=== PATIENT | male | born 1960 | race Caucasian/White ===

== ENCOUNTER 2021-09-15 12:55 | Inpatient (IN) ==
[2021-09-15] MEDS ORDERED: SODIUM CHLORIDE 0.9% 500 ML IV STA (13:07)
[2021-09-15 13:47] LABS: Hematocrit (blood only) 41.4 % (42-52); Hemoglobin 14.3 g/dL (14.0-18.0); Mean Corpuscular Hemoglobin 30.4 pg (25-34); Mean Corpuscular Hgb Conc 34.5 g/dL (32-36); Mean Corpuscular Volume 87.9 fL (80-100); Mean Platelet Volume 9.6 fL (7.4-10.4); Platelet Count 271 K/uL (130-400); RDW Coefficient of Variation 13.2 % (11.5-14.5); RDW Standard Deviation 42.1 fL (36.4-46.3); Red Blood Count 4.71 M/uL (4.7-6.1); White Blood Count 8.47 K/uL (4.8-10.8)
[2021-09-15 14:04] LABS: BUN Creatinine Ratio 10.6 (10-20); Calcium 9.9 mg/dl (8.5-10.1); Creatinine Clr Calc Pharmacy 42.4 ml/min; Est GFR (African American) 30.7 ml/min; Est GFR (Non-African American) 26.5 ml/min; Potassium 3.5 mmol/L (3.5-5.1)
[2021-09-15 15:05] LABS: Appearance Urine Clear (Clear); Bacteria Urine Automated Negative (Negative); Bilirubin Urine Negative (Negative); Blood Urine Trace (Negative); Color Urine Yellow; Glucose Urine UA Negative (Negative); Ketones Urine Trace (Negative); Leukocyte Esterase Urine Negative (Negative); Nitrite Urine Negative (Negative); Protein Urine Negative (Negative); RBC Urine Automated 0-4 /hpf (0-4); Specific Gravity Urine 1.021 (1.000-1.030); Urobilinogen Urine Negative (Negative)
--- NOTE | 2021-09-15 16:33 | CT Scan Report ---
CT SCAN OF THE ABDOMEN AND PELVIS WITHOUT IV CONTRAST CLINICAL HISTORY: Bilateral flank pain. COMPARISON STUDY: Ultrasound of the abdominal aorta dated 11/29/2006. TECHNIQUE: CT scan of the abdomen and pelvis is performed from the lung bases to the proximal femora. Images are reviewed in the axial, sagittal, and coronal planes. IV contrast was not administered for this examination. A dose lowering technique was utilized adhering to the principles of ALARA. CT DOSE: 1235.66 mGy.cm FINDINGS: Lung bases: The heart is mildly enlarged and without pericardial effusion. The lung bases are clear. There is a small hiatal hernia. Liver: The unenhanced liver is mildly enlarged measuring 19.1 cm in length. The liver demonstrates di ffusely diminished attenuation consistent with hepatic steatosis. Nodularity of the surface contour s uggests early morphological changes of cirrhosis. There is no intrahepatic biliary ductal dilatation. Gallbladder: There are calcified gallstones with no CT evidence of acute cholecystitis. Spleen: Normal in size and attenuation. Pancreas: The unenhanced pancreas is mildly atrophic and grossly unremarkable. Adrenal glands: Unremarkable. Kidneys: The unenhanced kidneys are normal in size. There is a 6 mm obstructing calculus in the mid t o distal left ureter at the level of L5 seen on image #261. This causes mild to moderate left hydrour eteronephrosis. An additional punctate calculus is seen in the left ureter just above this stone. The re are at least 3 nonobstructing left renal calculi which measure up to 9 mm. There are at least 3 pu nctate nonobstructing calculi in the right kidney. There is no right ureteral stone or right-sided hy dronephrosis. There is no evidence of contour deforming renal mass lesion. Abdominal vasculature: There is advanced atherosclerotic calcification of the abdominal aorta. An inf rarenal abdominal aortic aneurysm measures 4.6 x 3.8 cm (AP times transverse). Bowel: There are scattered colonic diverticula with no CT evidence of acute diverticulitis. No bowel obstruction is identified. The appendix is well-visualized and normal. Peritoneum: There is no intraperitoneal free air or abdominal ascites. There is a fat-containing umbi lical hernia. Lymphadenopathy: None. Pelvic viscera: The prostate gland is enlarged and heterogeneous. The bladder is decompressed and alana ssly unremarkable. Skeletal structures: There is mild lumbosacral spondylosis. No lytic or blastic lesions are seen. IMPRESSION: 1. There is a 6 mm obstructing calculus in the mid to distal left ureter as above. This causes mild t o moderate left hydroureteronephrosis. 2. There is a second punctate calculus in the left ureter just above the obstructing stone. 3. Additional bilateral nonobstructing renal calculi as above. 4. There is a 4.6 x 3.8 cm infrarenal abdominal aortic aneurysm. Nonemergent vascular surgical follow -up is advised. 4. Prostatomegaly. 5. Cholelithiasis. 6. The liver is enlarged and steatotic with early morphologic changes of cirrhosis. 7. Additional findings as above. ACT 112: Negative or not required by law. Electronically signed by: Andrew Peace M.D. 09/15/2021 4:31 PM
--- NOTE | 2021-09-15 17:01 | Emergency Department Note ---
Impression & Plan Left ureteral calculus, DANITZA (acute kidney injury), Hydroureteronephrosis ED Provider Note CHIEF COMPLAINT: Left flank pain, notes kidney stone HISTORY OF PRESENTING ILLNESS: This is a 60-year-old male who presents to the emergency department by private vehicle with complaint of left-sided flank pain and a kidney stone. He states that he was seen at [facility] on 09/10 and was diagnosed with a left-sided kidney stone. He states that he was prescribed Flomax and has been taking Tylenol and Advil, but has continued to have persistent left flank pain and he feels like he has not passed the stone. He states that his pain has significantly improved and he currently ra meseret his pain 02/20. He did have some nausea and vomiting earlier, but he states that that has resolved. He denies any fevers or chills. He denies any difficulty urinating and has not had any dysuria or hematuria. He notes a history of kidney stones many years ago which required lithotripsy. He does not follow with a urologist currently. He denies any other symptoms besides the left flank pain. He denies any chest pain, shortness of breath, dizziness or syncope. He denies any known exposures to COVID-19 and notes that he is fully vaccinated. He last ate and drank at 11am today. REVIEW OF SYSTEMS: A complete 10 point review of systems was reviewed with the patient with pertinent positives and negatives as per history of present illness. All else were negative. PAST MEDICAL HISTORY: Hypertension, hyperlipidemia SOCIAL HISTORY: Lives at home, he denies tobacco use ALLERGIES: Reviewed in chart and with the patient PHYSICAL EXAM: CONSTITUTIONAL: Pleasant and cooperative. Nontoxic-appearing and in no acute distress. Well appearing and well nourished. HEENT: Normocephalic, atraumatic. NECK: Supple, full active range of motion without discomfort. RESPIRATORY: Clear to auscultation bilaterally with no wheezing, crackles, rhonchi or stridor. Equal expansion bilaterally. CARDIOVASCULAR: Regular rate and rhythm with no murmurs, rubs or gallops. Normal peripheral perfusion. No edema. GASTROINTESTINAL: Mildly tender to palpation in the left flank and mid abdomen. No rebound tenderness or guarding. Abdomen is soft and nondistended, obese abdomen. No palpable masses or HSM. Bowel sounds present in all quadrants. Mild left-sided CVA tenderness to percussion. No right-sided CVA tenderness. MUSCULOSKELETAL: Full range of motion of all joints without discomfort. INTEGUMENTARY: No rash or other significant dermatologic conditions noted. NEUROLOGIC: Alert and oriented X 4 with normal affect. Normal strength and sensation in all 4 extremities. Normal speech. Normal gait observed. ED COURSE AND MEDICAL DECISION MAKING: CC: Patient presenting with complaint of left flank pain and kidney stone DIFFERENTIAL DIAGNOSIS: Includes, but not limited to UTI, pyelonephritis, ureteral stone, infected stone, acute kidney injury, dehydration, electrolyte abnormality, among others. INTERPRETATION OF LABS: No leukocytosis, no anemia, normal platelets, no significant electrolyte abnormalities, elevated BUN and significantly elevated creatinine compared to baseline. UA shows trace blood and trace ketones with no bacteria or other signs of infection. SARS-CoV-2 RNA test negative. MEDICATION RECONCILIATION: I attest that I have personally reviewed the patient's current medication list. INITIAL VITAL SIGNS REVIEW: I reviewed the patient's initial vital signs and interpret them as follows: T: Afebrile; BP: Hypertensive; HR: Within normal limits; RR: Within normal limits; Pulse Ox: Within normal limits on room air. MDM SUMMARY: The patient was evaluated in room D7 and brought back from the waiting room due to high patient volumes. History and physical exam was performed. The patient does report that he had evaluation at [facility] for his symptoms and was diagnosed with a kidney stone on the left on 09/10. He feels that his symptoms have not improved. Patient is alert and oriented, in no acute distress, resting calmly on the stret olivia. Patient appears comfortable and complains of minimal pain at this time. He is mildly tender to palpation on the left flank and has mild left-sided CVA tenderness. No acute abdomen. Labs and CT imaging were already placed due to high patient volumes and long wait times, these were reviewed noting a 6 mm obstructing left-sided ureteral stone with moderate hydroureteronephrosis as well as an acute elevation in the patient's creatinine from his baseline concerning for acute kidney injury. I discussed with the patient that he would need to be admitted for his kidney injury and to have intervention for his kidney stone, he was agreeable to this plan. Order placed for COVID-19 testing per hospital policy. Patient discussed with Dr. Aragon, who agrees with my assessment, plan, and disposition. I spoke on the phone with Dr. Contreras, urology, who was in agreement with admitting the patient and will plan for a likely procedure tomorrow. I spoke on the phone with the [facility] hospitalist group, who agreed to evaluate the patient for admission. Patient reassessed multiple times throughout ED stay, he has remained hemodynamically stable and his pain has been well managed without intervention at this time. The patient was updated on all results and plan for admission, he was agreeable to this plan. The patient was stable at the time of admission. The chart was completed utilizing [employer] voice recognition software. Grammatical errors, random word insertions, pronoun errors, and incomplete sentences are an occasional consequence of this system due to software limitations, ambient noise, and hardware issues. Any formal questions or concerns about the content, text, or information contained within the body of this dictation should be directly addressed to the nurse practitioner for clarification. Past Med/Surg History Medical History (Updated 09/15/21 @ 22:15 by CHRISTOPHE Peterson) Diabetes mellitus, type II Dyslipidemia HTN (hypertension) Sleep apnea Surgical History (Updated 09/15/21 @ 20:31 by Syeda Servin PA-C) History of colonoscopy Family History (Updated 09/15/21 @ 20:31 by Syeda Servin PA-C) Other Cancer Hypertension Social History (Updated 09/15/21 @ 20:31 by Syeda Servin PA-C) Smoking Status: Never smoker Hx Alcohol Use: Yes Alcohol Intake Frequency: Monthly or Less Hx Substance Use: No Preferred Language: Lithuanian Feels Safe at Home: Yes Allergies Allergies Allergy/AdvReac Type Severity Reaction Status Date / Time AHSLEY Inhibitors Allergy Severe ANGIOEDEMA Verified 03/30/20 21:28 ARB-Angiotensin Receptor Allergy Severe ANGIOEDEMA Verified 03/30/20 21:28 Antagonist Home Meds Home Medications Medication Instructions Recorded Confirmed acetaminophen 500 mg tablet 1,000 mg PO Q6H PRN 03/30/20 09/15/21 (Tylenol Extra Strength) cholecalciferol (vitamin D3) 50 150 mcg PO DAILY 03/30/20 09/15/21 mcg (2,000 unit) capsule (Vitamin D3) coenzyme Q10 100 mg capsule 100 mg PO DAILY 03/30/20 09/15/21 (CoQ-10) hydrochlorothiazide 25 mg tablet 25 mg PO DAILY 03/30/20 09/15/21 metoprolol succinate 100 mg 200 mg PO DAILY 03/30/20 09/15/21 tablet,extended release 24 hr (Toprol XL) amlodipine 5 mg tablet 5 mg PO PM 09/15/21 09/15/21 atorvastatin 80 mg tablet 80 mg PO PM 09/15/21 09/15/21 metformin 500 mg tablet,extended 1,000 mg PO DAILY 09/15/21 09/15/21 release 24 hr Results & Data (ED) Vital Signs Vital Signs - 24 hr 09/15/21 12:56 Temperature 36.9 C Temperature Source Oral Pulse Rate 63 Pulse Rhythm Regular Pulse Strength Normal Respiratory Rate 20 Respiratory Effort / Characteristics Non-Labored Respiratory Depth Normal Respiratory Pattern Regular Blood Pressure 165/87 H Blood Pressure Mean 113 Blood Pressure Position Sitting Pulse Oximetry 96 Oxygen Delivery Method Room Air Sepsis Recent Fever Within 48 Hours No Sepsis New/Unexplained Change in Mental Status N/A Sepsis Action Taken by Nursing No Action Required Laboratory Data Result diagrams: 09/15/21 13:30 09/15/21 13:30 Lab Results 09/15/21 09/15/21 09/15/21 Range/Units 13:30 13:30 13:30 WBC 8.47 (4.8-10.8) K/uL RBC 4.71 (4.7-6.1) M/uL Hgb 14.3 (14.0-18.0) g/dL Hct 41.4 L (42-52) % MCV 87.9 (80-100) fL MCH 30.4 (25-34) pg MCHC 34.5 (32-36) g/dL RDW Std Deviation 42.1 (36.4-46.3) fL RDW Coeff of Marcio 13.2 (11.5-14.5) % Plt Count 271 (130-400) K/uL MPV 9.6 (7.4-10.4) fL Sodium 137 (136-145) mmol/L Potassium 3.5 (3.5-5.1) mmol/L Chloride 100 (98-107) mmol/L Carbon Dioxide 28 (21-32) mmol/L Anion Gap 9.0 (3-11) BUN 27 H (7-18) mg/dl Creatinine 2.53 H (0.6-1.4) mg/dl Est Cr Clr Drug Dosing 42.4 ml/min Est GFR ( Amer) 30.7 ml/min Est GFR (Non-Af Amer) 26.5 ml/min BUN/Creatinine Ratio 10.6 (10-20) Glucose 167 H (70-99) mg/dl Calcium 9.9 (8.5-10.1) mg/dl Urine Color Yellow Urine Appearance Clear (Clear) Urine pH 5.0 (4.5-7.5) Ur Specific [place] 1.021 (1.000-1.030) Urine Protein Negative (Negative) Urine Glucose (UA) Negative (Negative) Urine Ketones Trace H (Negative) Urine Blood Trace H (Negative) Urine Nitrite Negative (Negative) Urine Bilirubin Negative (Negative) Urine Urobilinogen Negative (Negative) Ur Leukocyte Esterase Negative (Negative) Urine WBC (Auto) 1-5 (0-5) /hpf Urine RBC (Auto) 0-4 (0-4) /hpf U Hyaline Cast (Auto) 1-5 (0-5) /lpf U Epithel Cells (Auto) 10-20 H (0-5) /lpf Urine Bacteria (Auto) Negative (Negative) SARS-CoV-2, RNA, NAAT (NEGATIVE) 09/15/21 Range/Units 18:29 WBC (4.8-10.8) K/uL RBC (4.7-6.1) M/uL Hgb (14.0-18.0) g/dL Hct (42-52) % MCV (80-100) fL MCH (25-34) pg MCHC (32-36) g/dL RDW Std Deviation (36.4-46.3) fL RDW Coeff of Marcio (11.5-14.5) % Plt Count (130-400) K/uL MPV (7.4-10.4) fL Sodium (136-145) mmol/L Potassium (3.5-5.1) mmol/L Chloride (98-107) mmol/L Carbon Dioxide (21-32) mmol/L Anion Gap (3-11) BUN (7-18) mg/dl Creatinine (0.6-1.4) mg/dl Est Cr Clr Drug Dosing ml/min Est GFR ( Amer) ml/min Est GFR (Non-Af Amer) ml/min BUN/Creatinine Ratio (10-20) Glucose (70-99) mg/dl Calcium (8.5-10.1) mg/dl Urine Color Urine Appearance (Clear) Urine pH (4.5-7.5) Ur Specific [place] (1.000-1.030) Urine Protein (Negative) Urine Glucose (UA) (Negative) Urine Ketones (Negative) Urine Blood (Negative) Urine Nitrite (Negative) Urine Bilirubin (Negative) Urine Urobilinogen (Negative) Ur Leukocyte Esterase (Negative) Urine WBC (Auto) (0-5) /hpf Urine RBC (Auto) (0-4) /hpf U Hyaline Cast (Auto) (0-5) /lpf U Epithel Cells (Auto) (0-5) /lpf Urine Bacteria (Auto) (Negative) SARS-CoV-2, RNA, NAAT NEGATIVE (NEGATIVE) Administered Medications Discontinued Medications Sodium Chloride (Nss) 500 mls @ 999 mls/hr IV .Q31M STA Stop: 09/15/21 13:37 Last Admin: 09/15/21 18:56 Dose: Not Given Documented by: [id number] Sodium Chloride (Nss 1000ml) 1,000 mls @ 999 mls/hr IV .Q1H1M ONE Stop: 09/15/21 19:35 Last Infusion: 09/15/21 19:57 Dose: 0 mls/hr Documented by: [id number] Admin: 09/15/21 18:56 Dose: 999 mls/hr Documented by: [id number] Imaging Data Radiologist's Impression: Abdomen/Pelvis CT 09/15/21 15:19 CT SCAN OF THE ABDOMEN AND PELVIS WITHOUT IV CONTRAST CLINICAL HISTORY: Bilateral flank pain. COMPARISON STUDY: Ultrasound of the abdominal aorta dated 11/29/2006. TECHNIQUE: CT scan of the abdomen and pelvis is performed from the lung bases to the proximal femora. Images are reviewed in the axial, sagittal, and coronal planes. IV contrast was not administered for this examination. A dose lowering technique was utilized adhering to the principles of ALARA. CT DOSE: 1235.66 mGy.cm FINDINGS: Lung bases: The heart is mildly enlarged and without pericardial effusion. The lung bases are clear. There is a small hiatal hernia. Liver: The unenhanced liver is mildly enlarged measuring 19.1 cm in length. The liver demonstrates diffusely diminished attenuation consistent with hepatic steatosis. Nodularity of the surface contour suggests early morphological changes of cirrhosis. There is no intrahepatic biliary ductal dilatation. Gallbladder: There are calcified gallstones with no CT evidence of acute cholecystitis. Spleen: Normal in size and attenuation. Pancreas: The unenhanced pancreas is mildly atrophic and grossly unremarkable. Adrenal glands: Unremarkable. Kidneys: The unenhanced kidneys are normal in size. There is a 6 mm obstructing calculus in the mid to distal left ureter at the level of L5 seen on image #261. This causes mild to moderate left hydroureteronephrosis. An additional punctate calculus is seen in the left ureter just above this stone. There are at least 3 nonobstructing left renal calculi which measure up to 9 mm. There are at least 3 punctate nonobstructing calculi in the right kidney. There is no right ureteral stone or right-sided hydronephrosis. There is no evidence of contour deforming renal mass lesion. Abdominal vasculature: There is advanced atherosclerotic calcification of the abdominal aorta. An infrarenal abdominal aortic aneurysm measures 4.6 x 3.8 cm (AP times transverse). Bowel: There are scattered colonic diverticula with no CT evidence of acute di verticulitis. No bowel obstruction is identified. The appendix is well- visualized and normal. Peritoneum: There is no intraperitoneal free air or abdominal ascites. There is a fat-containing umbilical hernia. Lymphadenopathy: None. Pelvic viscera: The prostate gland is enlarged and heterogeneous. The bladder is decompressed and grossly unremarkable. Skeletal structures: There is mild lumbosacral spondylosis. No lytic or blastic lesions are seen. IMPRESSION: 1. There is a 6 mm obstructing calculus in the mid to distal left ureter as above. This causes mild to moderate left hydroureteronephrosis. 2. There is a second punctate calculus in the left ureter just above the obstructing stone. 3. Additional bilateral nonobstructing renal calculi as above. 4. There is a 4.6 x 3.8 cm infrarenal abdominal aortic aneurysm. Nonemergent vascular surgical follow-up is advised. 4. Prostatomegaly. 5. Cholelithiasis. 6. The liver is enlarged and steatotic with early morphologic changes of cirrhosis. 7. Additional findings as above. ACT 112: Negative or not required by law. Electronically signed by: Andrew Peace M.D. 09/15/2021 4:31 PM Discharge Plan Visit Data Chief Complaint: Kidney Stone Stated Complaint: KIDNEY STONE ED Provider: Roel Aragon ED Midlevel Provider: Zahra Marino Discharge Problem: Left ureteral calculus, DANITZA (acute kidney injury), Hydroureteronephrosis Patient Disposition: Admitted As Inpatient Condition: Good Discharge Instructions Interventions: ED Discharge Assessment Last Done: 09/15/21 20:36
[2021-09-15] MEDS ORDERED: SODIUM CHLORIDE 0.9% 1000ML 1,000 ML IV ONE (18:35)
--- NOTE | 2021-09-15 19:21 | History & Physical Report ---
Date of Service September 15, 2021 Assessment & Plan (1) Ureteral calculus, left: Plan: Patient is 60-year-old male with PMH hypertension, dyslipidemia, DM II, sleep apnea presented to ER with complaint of kidney stone x1 week. Seen [facility] 09/09/21 diagnosed with 5 mm left ureter calculus. Denies fever/chills, dysuria, hematuria, urinary frequency or retention. In ER Patient afebrile, vital stable. No leukocytosis, BUN: 27, creatinine: 2.5. UA unremarkable CT abdomen and pelvis: 1. There is a 6 mm obstructing calculus in the mid to distal left ureter as above. This causes mild to moderate left hydroureteronephrosis. 2. There is a second punctate calculus in the left ureter just above the obstructing stone. 3. Additional bilateral nonobstructing renal calculi as above. 4. There is a 4.6 x 3.8 cm infrarenal abdominal aortic aneurysm. Nonemergent va scular surgical follow-up is advised. 4. Prostatomegaly. 5. Cholelithiasis. 6. The liver is enlarged and steatotic with early morphologic changes of cirrhosis. Strain urine IVF Oxycodone, Morphine prn pain Avoid NSAIDs NPO midnight Continue flomax Urology consult, possible procedure tomorrow Will need outpatient follow up on infrarenal abdominal aortic aneurysm CMP in am to assess liver functions (2) DANITZA (acute kidney injury): Plan: BUN: 27, Cr: 2.5. (was 1.8 on 09/09/21) Likely secondary to obstructing ureteral stone and NSAID use Monitor renal functions IVF Avoid NSAIDs and other nephrotoxic agents (3) HTN (hypertension): Plan: Continue amlodipine, metoprolol succinate Hole HCTZ with DANITZA (4) Dyslipidemia: Plan: Continue atorvastatin (5) Diabetes mellitus, type II: Plan: A1c: 6.1 on 05/29/21 Hold metformin Novolog sliding scale per protocol A1c in am (6) Sleep apnea: Plan: CPAP HS DVT Prophylaxis SCDs Full Code as per discussion with pt Follows with Dr Rivas for routine care Pt was seen and care coordinated with Dr Burciaga. See addendum History of Present Illness Chief Complaint: Kidney stone Primary Care Provider: Josue Burciaga MD Patient is 60-year-old male with PMH hypertension, dyslipidemia, DM II, sleep apnea presented to ER with complaint of kidney stone. Patient states last week had onset left flank pain and was seen at [facility] ER on 09/09/2021. There he was diagnosed with 5 mm left ureter calculus. At that time his creat inine was 1.8. He was discharged home. Patient states he has been alternating ibuprofen 800 mg every 4 hours as well as 1 g Tylenol every 4 hours. Patient states pain seemed to decrease however today with onset of left flank pain again. Patient reports is urinating without difficulty and denies any hematuria. Denies any fever or chills. Last week did have episode of vomiting at onset of flank pain however has not had any vomiting since ER visit in [place]. Patient reports history of needing lithotripsy for kidney stone years ago. Denies fever/chills, diaphoresis, diarrhea, constipation, ALMONTE, dizziness, syncope, vision changes, neck pain, CP, SOB, orthopnea, palpitations, cough, sore throat, choking, otalgia, rhinorrhea, paresthesias, weakness, extremity weakness, extremity edema, rashes, dysuria. In ER Patient afebrile, vital stable. No leukocytosis, BUN: 27, creatinine: 2.5. CT abdomen and pelvis shows 6 mm mid distal left ureter calculus Allergies Allergy/AdvReac Type Severity Reaction Status Date / Time ASHLEY Inhibitors Allergy Severe ANGIOEDEMA Verified 03/30/20 21:28 ARB-Angiotensin Receptor Allergy Severe ANGIOEDEMA Verified 03/30/20 21:28 Antagonist Home Medications Medication Instructions Recorded Confirmed Type acetaminophen 500 mg tablet 1,000 mg PO Q6H PRN 03/30/20 09/15/21 History (Tylenol Extra Strength) cholecalciferol (vitamin D3) 50 150 mcg PO DAILY 03/30/20 09/15/21 History mcg (2,000 unit) capsule (Vitamin D3) coenzyme Q10 100 mg capsule 100 mg PO DAILY 03/30/20 09/15/21 History (CoQ-10) hydrochlorothiazide 25 mg tablet 25 mg PO DAILY 03/30/20 09/15/21 History metoprolol succinate 100 mg 200 mg PO DAILY 03/30/20 09/15/21 History tablet,extended release 24 hr (Toprol XL) amlodipine 5 mg tablet 5 mg PO PM 09/15/21 09/15/21 History atorvastatin 80 mg tablet 80 mg PO PM 09/15/21 09/15/21 History metformin 500 mg tablet,extended 1,000 mg PO DAILY 09/15/21 09/15/21 History release 24 hr Past Med/Surg History Medical History (Updated 09/15/21 @ 22:15 by CHRISTOPHE Peterson) Diabetes mellitus, type II Dyslipidemia HTN (hypertension) Sleep apnea Surgical History (Updated 09/15/21 @ 20:31 by Syeda Servin PA-C) History of colonoscopy Family History (Updated 09/15/21 @ 20:31 by Syeda Servin PA-C) Other Cancer Hypertension Social History (Updated 09/15/21 @ 20:31 by Syeda Servin PA-C) Smoking Status: Never smoker Hx Alcohol Use: Yes Alcohol Intake Frequency: Monthly or Less Hx Substance Use: No Preferred Language: [place] Islander Communication Ability: Effective Card Writer Hand Required: No Beliefs That Will Affect Care: None Current Living Situation: Spouse Feels Safe at Home: Yes Review of Systems Review of Systems: All systems reviewed & are unremarkable except as noted in HPI & below Physical Exam Physical Exam: General: no acute distress, overweight Head: normocephalic, atraumatic Eyes: PERRL, EOM's intact, conjunctiva non-injected, anicteric ENT: normal inspection external ears, nose, mucous membranes moist Neck: supple, trachea midline Lungs: clear, no respiratory distress, no wheezing/rhonchi/rales CV: RRR, no pretibial edema Abd: normal BS, soft, Mild tenderness to left flank with palpation Ext: no cyanosis, no calf tenderness Neuro: A&O x 3, no focal deficits noted, normal affect Skin: warm, dry Results & Data Results & Data ([facility]) Vital Signs (Past 12 Hours) Vital Signs Temp Pulse Resp BP Pulse Ox 09/15/21 12:56 36.9 C 63 20 165/87 H 96 Laboratory Results Short CBC 09/15/21 Range/Units 13:30 WBC 8.47 (4.8-10.8) K/uL Hgb 14.3 (14.0-18.0) g/dL Hct 41.4 L (42-52) % Plt Count 271 (130-400) K/uL BMP 09/15/21 13:30 Sodium 137 Potassium 3.5 Chloride 100 Carbon Dioxide 28 BUN 27 H Creatinine 2.53 H Glucose 167 H Calcium 9.9 Urine 09/15/21 Range/Units 13:30 Urine Color Yellow Urine Appearance Clear (Clear) Urine pH 5.0 (4.5-7.5) Ur Specific [place] 1.021 (1.000-1.030) Urine Protein Negative (Negative) Urine Glucose (UA) Negative (Negative) Diagnostic Findings Abdomen/Pelvis CT 09/15/21 15:19 CT SCAN OF THE ABDOMEN AND PELVIS WITHOUT IV CONTRAST CLINICAL HISTORY: Bilateral flank pain. COMPARISON STUDY: Ultrasound of the abdominal aorta dated 11/29/2006. TECHNIQUE: CT scan of the abdomen and pelvis is performed from the lung bases to the proximal femora. Images are reviewed in the axial, sagittal, and coronal planes. IV contrast was not administered for this examination. A dose lowering technique was utilized adhering to the principles of ALARA. CT DOSE: 1235.66 mGy.cm FINDINGS: Lung bases: The heart is mildly enlarged and without pericardial effusion. The lung bases are clear. There is a small hiatal hernia. Liver: The unenhanced liver is mildly enlarged measuring 19.1 cm in length. The liver demonstrates diffusely diminished attenuation consistent with hepatic steatosis. Nodularity of the surface contour suggests early morphological changes of cirrhosis. There is no intrahepatic biliary ductal dilatation. Gallbladder: There are calcified gallstones with no CT evidence of acute cholecystitis. Spleen: Normal in size and attenuation. Pancreas: The unenhanced pancreas is mildly atrophic and grossly unremarkable. Adrenal glands: Unremarkable. Kidneys: The unenhanced kidneys are normal in size. There is a 6 mm obstructing calculus in the mid to distal left ureter at the level of L5 seen on image #261. This causes mild to moderate left hydroureteronephrosis. An additional punctate calculus is seen in the left ureter just above this stone. There are at least 3 nonobstructing left renal calculi which measure up to 9 mm. There are at least 3 punctate nonobstructing calculi in the right kidney. There is no right ureteral stone or right-sided hydronephrosis. There is no evidence of contour deforming renal mass lesion. Abdominal vasculature: There is advanced atherosclerotic calcification of the abdominal aorta. An infrarenal abdominal aortic aneurysm measures 4.6 x 3.8 cm (AP times transverse). Bowel: There are scattered colonic diverticula with no CT evidence of acute diverticulitis. No bowel obstruction is identified. The appendix is well- visualized and normal. Peritoneum: There is no intraperitoneal free air or abdominal ascites. There is a fat-containing umbilical hernia. Lymphadenopathy: None. Pelvic viscera: The prostate gland is enlarged and heterogeneous. The bladder is decompressed and grossly unremarkable. Skeletal structures: There is mild lumbosacral spondylosis. No lytic or blastic lesions are seen. IMPRESSION: 1. There is a 6 mm obstructing calculus in the mid to distal left ureter as above. This causes mild to moderate left hydroureteronephrosis. 2. There is a second punctate calculus in the left ureter just above the obstructing stone. 3. Additional bilateral nonobstructing renal calculi as above. 4. There is a 4.6 x 3.8 cm infrarenal abdominal aortic aneurysm. Nonemergent vascular surgical follow-up is advised. 4. Prostatomegaly. 5. Cholelithiasis. 6. The liver is enlarged and steatotic with early morphologic changes of cirrhosis. 7. Additional findings as above. ACT 112: Negative or not required by law. Electronically signed by: Andrew Peace M.D. 09/15/2021 4:31 PM Code Status & VTE Plan VTE Prophylaxis Plan VTE Prophylaxis will be ordered: Yes Supervising Physician Co-Signing Physician Notes Care coordinated with Syeda Servin PA-C. Agree with above note. Patient seen and examined. Please refer to her notes for full details. Vital signs reviewed. Physical exam: General exam: Alert and oriented. Not in acute distress. CVS: S1 and S2 heard, regular rate and rhythm, no murmurs. RS: Clear to auscultation, no wheezing or crackles. ABD: Soft, bowel sounds present, nontender, no distention. 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 EXT: No edema, no erythema. Labs: Reviewed. Assessment and plan: 60 M presents with renal colic. Recently was in [facility] and found to have right 5mm distal ureter ston. Was discharged but comes back as pain came back and he didnot passed the stone. Imaging studies showing obstructing 6mm right distal ureter stone. Right kidney stone renal colic iv fluids npo after midnight pain control urology consult in am. Danitza presented with Cr 2.5 recent cr 1.8 avoid nephrotoxic agents iv fluids follow labs in am. Abdominal aortic aneurysm infra renal needs followup. Other diagnosis and plan of care as per Syeda Servin PA-C. Rommel calle MD.
[2021-09-15] MEDS ORDERED: MoRPHine SULFATE 4 MG/ML 1 ML CARP\\VIAL IV PRN (19:22)
[2021-09-15] MEDS ORDERED: GLUCAGON FOR INJ 1 MG VIAL SQ PRN (22:11)
[2021-09-15] MEDS ORDERED: GLUCOSE 10 TABS/TUBE PO PRN (22:11)
[2021-09-15] MEDS ORDERED: GLUCOSE 40% GEL 15 GM TUBE PO PRN (22:11)
[2021-09-15] MEDS ORDERED: CARBOHYDRATES FOR HYPOGLYCEMIA PO PRN (22:11)
[2021-09-15] MEDS ORDERED: ONDANSETRON INJ 2 MG/ML 2 ML VIAL IV PRN (22:11)
[2021-09-15] MEDS ORDERED: oxyCODONE HCL IR 5 MG TAB (IMMEDIATE RELEASE) PO PRN (22:11)
[2021-09-15] MEDS ORDERED: DEXTROSE 50% 50 ML SYRINGE IV PRN (22:11)
[2021-09-15] MEDS ORDERED: POLYETHYLENE (MIRALAX) 17 GM PACK PO PRN (22:11)
[2021-09-15] MEDS ORDERED: MAGNESIUM HYDROXIDE SUSP 30 ML UDC PO PRN (22:11)
[2021-09-15] MEDS ORDERED: ACETAMINOPHEN 325 MG TAB PO PRN (22:11)
[2021-09-15] MEDS: SODIUM CHLORIDE 0.9% 1000ML 1,000 ML IV SCH (22:31)
[2021-09-15] MEDS ORDERED: ATORVASTATIN 40 MG TAB PO SCH (23:00)
[2021-09-15] MEDS ORDERED: amLODIPine BESYLATE 5 MG TAB PO SCH (23:00)
[2021-09-15] MEDS: INSULIN ASPART 100 UNITS/ML 3 ML PEN SC SCH (23:02)
--- NOTE | 2021-09-15 23:45 | Hospitalist Progress Note ---
Date of Service September 15, 2021 Assessment & Plan Admission and Anticipated Discharge Date Admission Date: September 15, 2021 Subjective Error : Documented as right renal colic whereas patient has left distal ureter stone and left renal colic. . Thank you Results & Data Results & Data ([facility]) Vital Signs (Past 12 Hours) Vital Signs Temp Pulse Pulse Resp BP BP Pulse Ox 09/15/21 20:30 69 21 95 09/15/21 20:00 77 20 171/92 H 96 09/15/21 19:30 66 15 99 09/15/21 19:14 71 20 97 09/15/21 19:00 60 16 167/84 H 98 09/15/21 12:56 36.9 C 63 20 165/87 H 96
[2021-09-16 06:04] LABS: Hematocrit (blood only) 39.8 % (42-52); Hemoglobin 13.4 g/dL (14.0-18.0); Mean Corpuscular Hemoglobin 29.8 pg (25-34); Mean Corpuscular Hgb Conc 33.7 g/dL (32-36); Mean Corpuscular Volume 88.6 fL (80-100); Mean Platelet Volume 9.4 fL (7.4-10.4); Platelet Count 251 K/uL (130-400); RDW Coefficient of Variation 13.2 % (11.5-14.5); RDW Standard Deviation 42.6 fL (36.4-46.3); Red Blood Count 4.49 M/uL (4.7-6.1); White Blood Count 9.87 K/uL (4.8-10.8)
[2021-09-16 06:33] LABS: Albumin Level 3.3 gm/dl (3.4-5.0); Calcium 9.1 mg/dl (8.5-10.1); Creatinine Clr Calc Pharmacy 48.5 ml/min; Est GFR (African American) 36.4 ml/min; Est GFR (Non-African American) 31.4 ml/min; Potassium 3.6 mmol/L (3.5-5.1)
[2021-09-16 06:36] LABS: Albumin Globulin Ratio 0.8 (0.9-2); Bilirubin,Total 0.9 mg/dl (0.2-1); Total Protein 7.3 gm/dl (6.4-8.2)
[2021-09-16 08:18] LABS: Estimated Average Glucose 151 mg/dl; Hemoglobin A1C 6.9 % (4.5-5.6)
[2021-09-16] MEDS: INSULIN ASPART 100 UNITS/ML 3 ML PEN SC SCH ×3 (08:30→18:42)
[2021-09-16] MEDS: SODIUM CHLORIDE 0.9% 1000ML 1,000 ML IV SCH (08:53)
[2021-09-16] MEDS ORDERED: METOPROLOL SUCC 50MG EXT REL TAB PO SCH (09:00)
[2021-09-16] MEDS ORDERED: TAMSULOSIN HCL 0.4 MG CAP PO SCH (09:00)
[2021-09-16] MEDS ORDERED: MIDAZOLAM HCL 1 MG/ML 2ML VIAL ONE (13:49)
[2021-09-16] MEDS ORDERED: fentaNYL citrate 100 MCG/2 ML VIAL ONE (13:49)
--- NOTE | 2021-09-16 13:58 | Anesthesiology Consultation ---
Date of Service September 16, 2021 Assessment & Plan Chart Review Chart Review: Acceptable Risk for Surgery and Patient NOT seen in Pre Admission Testing Consults Requested none ASA [id number] Proposed Anesthesia Anesthesia Type: General History Surgery Operation Date: 09/16/21 14:00 Proposed Procedures p Cystoscopy, Left Ureteroscopy, Left Ureteral Stent Insertion - Dom Contreras, Height/Weight Height: 6 ft 2 in Weight: 117 kg Allergies Allergy/AdvReac Type Severity Reaction Status Date / Time ASHLEY Inhibitors Allergy Severe ANGIOEDEMA Verified 03/30/20 21:28 ARB-Angiotensin Receptor Allergy Severe ANGIOEDEMA Verified 03/30/20 21:28 Antagonist Medications Home Medications Medication Instructions Recorded Confirmed Last Taken acetaminophen 500 mg tablet 1,000 mg PO Q6H PRN 03/30/20 09/15/21 Unknown (Tylenol Extra Strength) cholecalciferol (vitamin D3) 50 150 mcg PO DAILY 03/30/20 09/15/21 Unknown mcg (2,000 unit) capsule (Vitamin D3) coenzyme Q10 100 mg capsule 100 mg PO DAILY 03/30/20 09/15/21 Unknown (CoQ-10) hydrochlorothiazide 25 mg tablet 25 mg PO DAILY 03/30/20 09/15/21 09/15/21 metoprolol succinate 100 mg 200 mg PO DAILY 03/30/20 09/15/21 09/15/21 tablet,extended release 24 hr (Toprol XL) amlodipine 5 mg tablet 5 mg PO PM 09/15/21 09/15/21 09/14/21 atorvastatin 80 mg tablet 80 mg PO PM 09/15/21 09/15/21 09/14/21 metformin 500 mg tablet,extended 1,000 mg PO DAILY 09/15/21 09/15/21 09/15/21 release 24 hr Active Medications Generic Name Dose Route Start Last Admin Trade Name Freq PRN Reason Stop Dose Admin Acetaminophen 650 mg 09/15/21 22:11 09/16/21 09:58 Acetaminophen 325 Mg Tab PO 10/15/21 22:10 650 mg Q4H PRN Administration Pain or Fever Amlodipine Besylate 5 mg 09/15/21 23:00 09/15/21 23:09 Amlodipine Besylate 5 Mg Tab PO 10/15/21 22:59 5 mg PM ADILENE Administration Atorvastatin Calcium 80 mg 09/15/21 23:00 09/15/21 23:10 Atorvastatin 40 Mg Tab PO 10/15/21 22:59 80 mg PM ADILENE Administration Sodium Chloride 1,000 mls @ 100 mls/hr 09/15/21 22:11 09/16/21 08:53 Nss 1000ml IV 09/16/21 18:10 100 mls/hr .Q10H ADILENE Administration Insulin Aspart 0 units 09/15/21 23:00 09/16/21 12:15 Insulin Aspart 100 Units/Ml 3 Ml Pen SC 10/15/21 22:59 Not Given ACHS ADILENE Metoprolol Succinate 200 mg 09/16/21 09:00 09/16/21 07:45 Metoprolol Succ 50mg Ext Rel Tab PO 10/16/21 08:59 200 mg DAILY ADILENE Administration Morphine Sulfate 3 mg 09/15/21 19:22 09/15/21 22:28 Morphine Sulfate 4 Mg/Ml 1 Ml Carp\Vial IV 09/29/21 19:21 3 mg Q3H PRN Administration Severe Pain Ondansetron HCl 4 mg 09/15/21 22:11 09/15/21 22:36 Ondansetron Inj 2 Mg/Ml 2 Ml Vial IV 10/15/21 22:10 4 mg Q6H PRN Administration Nausea Oxycodone HCl 5 mg 09/15/21 22:11 09/16/21 05:42 Oxycodone Hcl Ir 5 Mg Tab (Immediate Release) PO 09/29/21 22:10 5 mg Q6H PRN Administration Moderate Pain Tamsulosin HCl 0.4 mg 09/16/21 09:00 09/16/21 07:44 Tamsulosin Hcl 0.4 Mg Cap PO 10/16/21 08:59 0.4 mg QAM ADILENE Administration NPO Date Last Intake of Fluids: 09/16/21 Time Last Intake of Fluids: 07:30 Last Intake of Fluids Comment: sips with meds Date Last Intake of Solids: 09/16/21 Time Last Intake of Solids: 00:00 Past Medical History Medical History Diabetes mellitus, type II Dyslipidemia HTN (hypertension) Sleep apnea Exercise / Class Metabolic Activity II 4-5 Yardwork/Stairs/Walk up hill Past Family History Family History Other Cancer Hypertension Past Surgical History Surgical History History of colonoscopy Past Anesthesia History No Hx of Anesthesia Complications and No Family Hx of Anesthesia Complications History of PONV No Hx of PONV and No Hx of Motion Sickness Social History Smoking Status: Never smoker Hx Alcohol Use: Yes alcohol intake frequency: holidays/special occasions only Hx Substance Use: No Physical Exam Vital Signs Last Vital Signs Temp 37.1 C 09/16/21 07:44 Pulse 68 09/16/21 07:44 Resp 18 09/16/21 07:44 BP 165/78 H 09/16/21 07:44 Pulse Ox 93 09/16/21 07:44 Testing Laboratory Results 09/16/21 05:44 09/16/21 05:44 Hemoglobin A1c 6.9 % (4.5-5.6) H 09/16/21 05:44 Urine Color Yellow 09/15/21 13:30 Urine Appearance Clear (Clear) 09/15/21 13:30 Urine pH 5.0 (4.5-7.5) 09/15/21 13:30 Ur Specific [place] 1.021 (1.000-1.030) 09/15/21 13:30 Urine Protein Negative (Negative) 09/15/21 13:30 Urine Glucose (UA) Negative (Negative) 09/15/21 13:30 Urine Ketones Trace (Negative) H 09/15/21 13:30 Urine Nitrite Negative (Negative) 09/15/21 13:30 Ur Leukocyte Esterase Negative (Negative) 09/15/21 13:30 Urine WBC (Auto) 1-5 /hpf (0-5) 09/15/21 13:30 Urine RBC (Auto) 0-4 /hpf (0-4) 09/15/21 13:30 U Hyaline Cast (Auto) 1-5 /lpf (0-5) 09/15/21 13:30 U Epithel Cells (Auto) 10-20 /lpf (0-5) H 09/15/21 13:30 Urine Bacteria (Auto) Negative (Negative) 09/15/21 13:30 09/16/21 09/16/21 12:09 07:51 POC Glucose 147 H 147 H Electrocardiogram Date: 03/30/20 Findings: + NSR @ (at 80;poss. infer. mi;age ?)
--- NOTE | 2021-09-16 14:12 | Urology Consultation ---
Date of Consultation September 16, 2021 Assessment & Plan (1) Left ureteral calculus: (2) DANITZA (acute kidney injury): Patient with history of stones with an obstructing stone causing considerable pain and DANITZA. Underwent hydration and supportive care and has only had a mild improvement of DANITZA. Continues to have significant pain and discomfort. Is very similar to previous stone episodes. No considerable family history of stone disease. Patient has never undergone work-up for stone disease. Has undergone a lithotripsy in the past and this was done within a submerged tank. Discussed options for conservative measure and maximum expulsion medical therapy and symptom controlled. Discussed ESWL. Discussed Ureteroscopy with extraction and/or laser lithotripsy. Risks and benefits were discussed. Stone free rates were also discussed as well as possibility of multiple procedures. Ureteral stents were discussed as well as post-operative issues and pain management. All questions were answered. Risks and benefits discussed at length for procedure. These include bleeding, infection, injury to surrounding tissues or organs, and risks associated with anesthesia. Patient states understanding and agrees to proceed. Will sign consent and procee d We will plan for cystoscopy with possible left ureteroscopy and stent History of Present Illness Attending Physician: Emily Hernandez, History of Present Illness New consultation for patient with stone, discomfort, obstruction, and ill feelings. Patient developed sudden onset of pain into flank going down and radiating into groin and back in waves comes and goes. Can be severe at times. Discussed and reviewed patient's family history for any history of stone disease. Also, discussed patient's medical surgery history especially related to any history of urinary issues or stone disease. Patient previously had stones 10 to 15 years ago at that time had to undergo ESWL. Has since been able to pass any stones. Has not had a stone in the last 8 or so years. No major family history. No considerable oxalate intake. Patient had a considerable DANITZA on presentation. Has only mildly improved with hydration Patient was admitted and is undergoing observation. Allergies Allergy/AdvReac Type Severity Reaction Status Date / Time ASHLEY Inhibitors Allergy Severe ANGIOEDEMA Verified 03/30/20 21:28 ARB-Angiotensin Receptor Allergy Severe ANGIOEDEMA Verified 03/30/20 21:28 Antagonist Home Medications Medication Instructions Recorded Confirmed Type acetaminophen 500 mg tablet 1,000 mg PO Q6H PRN 03/30/20 09/15/21 History (Tylenol Extra Strength) cholecalciferol (vitamin D3) 50 150 mcg PO DAILY 03/30/20 09/15/21 History mcg (2,000 unit) capsule (Vitamin D3) coenzyme Q10 100 mg capsule 100 mg PO DAILY 03/30/20 09/15/21 History (CoQ-10) hydrochlorothiazide 25 mg tablet 25 mg PO DAILY 03/30/20 09/15/21 History metoprolol succinate 100 mg 200 mg PO DAILY 03/30/20 09/15/21 History tablet,extended release 24 hr (Toprol XL) amlodipine 5 mg tablet 5 mg PO PM 09/15/21 09/15/21 History atorvastatin 80 mg tablet 80 mg PO PM 09/15/21 09/15/21 History metformin 500 mg tablet,extended 1,000 mg PO DAILY 09/15/21 09/15/21 History release 24 hr Patient History Medical History Diabetes mellitus, type II Dyslipidemia HTN (hypertension) Sleep apnea Surgical History History of colonoscopy Family History Other Cancer Hypertension Social History Smoking Status: Never smoker Hx Alcohol Use: Yes Alcohol Intake Frequency: Monthly or Less Hx Substance Use: No Preferred Language: [place] Communication Ability: Effective Director Medicaid Required: No Beliefs That Will Affect Care: None Current Living Situation: Spouse Feels Safe at Home: Yes Review of Systems Review of Systems: All systems reviewed & are unremarkable except as noted in HPI & below Physical Exam Physical Exam: General: Alert and oriented x 3 in no acute distress. Patient is well nourished and well kept. HEENT: Normocephalic Atraumatic. Inspection normal. Cranial Nerves 2-12 Grossly intact. Nares are clear. Neck is supple. Normal inspection of face. Normal inspection of neck. Neurologic: No deficits on inspection. Baseline for motor function and sensory. Psychologic: Normal affect. Respiratory: Nonlabored. No use of accessory muscles. No tachypnea or dyspnea. Cardiovascular: No tachycardia Skin: [place] and Dry. No rashes or visible lesions. Extremities: Moving without issues. No motor deficits on inspection Lymphatics: No edema Abdomen: Soft Non-distended. No acites. No rebound or guarding. Results & Data ([facility]) Vital Signs (Past 12 Hours) Vital Signs Temp Pulse Resp BP Pulse Ox 09/16/21 07:44 37.1 C 68 18 165/78 H 93 PG Care Time/CCT Total # of Minutes Spent Total Time Spent with Patient: Total time spent is greater than 50% in coordination of care (as documented) at patient's floor/unit and/or counseling patient: Coding Level of Care Code 38928 Inpt Consult Level 5 Diagnoses Left ureteral calculus N20.1 DANITZA (acute kidney injury) N17.9
[2021-09-16] MEDS ORDERED: fentaNYL citrate 100 MCG/2 ML VIAL IV PRN (14:33)
[2021-09-16] MEDS ORDERED: NALOXONE HCL 0.4 MG/1 ML VIAL/CARP IV PRN (14:33)
[2021-09-16] MEDS ORDERED: ONDANSETRON INJ 2 MG/ML 2 ML VIAL IV PRN (14:33)
[2021-09-16] MEDS ORDERED: PROMETHAZINE HCL 12.5 MG in SODIUM CHLORIDE 0.9% 50 ML IV PRN (14:33)
[2021-09-16] MEDS ORDERED: LABETALOL HCL IV 5 MG/ML 20ML IV PRN (14:33)
[2021-09-16] MEDS ORDERED: ePHEDrine sulfate 50 MG/ML AMP IV PRN (14:33)
[2021-09-16] MEDS ORDERED: ATROPINE SULFATE 0.1 MG/ML 10ML SYR IV PRN (14:33)
[2021-09-16] MEDS ORDERED: FLUMAZENIL 0.1 MG/1 ML 10 ML VIAL IV PRN (14:33)
--- NOTE | 2021-09-16 15:08 | Operative Report ---
PG Post Operative Report Pre & Post Diagnosis Operation Date: 09/16/21 14:00 Pre-Op Diagnosis: KIDNEY STONE, DANITZA Post-Op Diagnosis: KIDNEY STONE, DANITZA I identified the patient and participated in the time-out.: Yes Procedure Operation Date: 09/16/21 14:00 Actual Procedures p Cystoscopy and Left Ureteroscopy, Left Ureteral Stent Insertion(Left) - Dom Contreras DO Surgeon Dom Contreras, II, DO Aircraft Engine Technician None Estimated Blood Loss 1 Findings Consistent with Post-Op Diagnosis Distal stricture and UO narrowing. Stone impacted at mid ureter. Dark urine with debris entrapped behind stone Specimens Urine for culture. Drains 6 Fr Multilength Anesthesia Type General Complications none Disposition Disposition: Recovery Room Indications Patient with bothersome stones and DANITZA. Risks and benefits discussed at length. Description of Procedure Patient was consented and brought back to the operating room. Patient was placed under anesthesia in the supine position and moved to the dorsal lithotomy position. Patient was prepped and draped in the regular sterile fashion. A time out was completed. A 30degree Cystoscope was placed into the bladder and the entire bladder was examined. The UO's were identified. The UO was cannulized with a catheter and a retrograde pyelogram was completed. A wire was then placed. The Rigid ureteroscope was taken into the ureter. Two strictures were dilated. The stone was identified and severely impacted in the wall. With manipulation, a large amount of debris was appreciated. Due to possible infection and the strictures, it was elected to avoid manipulation and allow decompression with stent. The scope was slowly removed with the wire left in place. A 5 fr catheter was used to aspirate urine from the renal pelvis. This was sent for analysis. Contrast was placed through the scope for a pyelogram to assist in stent placement. The entire ureter was examined as the scope was slowly removed. No obstructions or other areas of concern were noted. With the wire in place, a 6 Fr Double J stent was placed. It was confirmed with fluoroscopy. With the stent in place, the bladder was emptied. The scope was removed. The patient was cleaned, aroused from anesthesia, and transferred to the pacu in stable condition having tolerated the procedure well with no complications. I was present and participated in all aspects of the procedure. The patient will be monitored in the PACU until transferred. Plan to maintain stent and monitor DANITZA. Can plan on treatment of Ureteral and Renal stones in 1-3 weeks. I attest to the content of the Intraoperative Record and any orders documented therein. Any exceptions are noted below.
--- NOTE | 2021-09-16 15:14 | Fluoroscopy Report ---
FL retrograde includes kub CLINICAL HISTORY: LEFT SIDED STENT COMPARISON STUDY: Abdomen and pelvis CT 09/15/2021. FLUOROSCOPY TIME: 34 seconds. FINDINGS: 4 fluoroscopic spot images of the abdomen and pelvis demonstrate retrograde opacification o f the left renal collecting system followed by placement of a left ureteral stent. The ureteral stent appears in good position. IMPRESSION: Fluoroscopic assistance provided for left ureteral stent placement. ACT 112: Negative or not required by law. Electronically signed by: Naren Metcalf M.D. 09/16/2021 3:12 PM
--- NOTE | 2021-09-16 15:53 | Anesthesiology Progress Note ---
Date of Service September 16, 2021 Anesthesia Post Procedure Vital Signs Vital Signs: Temp Pulse Pulse Resp BP BP Pulse Ox 09/16/21 15:45 64 16 155/81 H 95 09/16/21 15:35 36.8 C 62 16 160/87 H 97 09/16/21 15:25 68 17 149/78 H 97 09/16/21 15:15 64 16 154/86 H 99 09/16/21 15:09 36.7 C 66 16 132/67 96 09/16/21 07:44 37.1 C 68 18 165/78 H 93 09/16/21 00:15 69 19 94 09/15/21 20:30 69 21 95 09/15/21 20:00 77 20 171/92 H 96 09/15/21 19:30 66 15 99 09/15/21 19:14 71 20 97 09/15/21 19:00 60 16 167/84 H 98 Pain Intensity Left Flank: Pain Intensity: 4 Transfer of Care Handoff Completed per policy Notes Mental Status: alert / awake / arousable Patient Amnestic to Procedure: Yes Nausea / Vomiting: adequately controlled Pain: adequately controlled Airway Patency, RR, SpO2: stable & adequate BP & HR: stable & adequate Hydration State: stable & adequate Anesthetic Complications: no major complications apparent
--- NOTE | 2021-09-16 19:06 | Hospitalist Progress Note ---
Date of Service September 16, 2021 Assessment & Plan (1) Ureteral calculus, left: Plan: Patient is 60-year-old male with PMH hypertension, dyslipidemia, DM II, sleep apnea presented to ER with complaint of kidney stone x1 week. Seen [facility] 09/09/21 diagnosed with 5 mm left ureter calculus. Denies fever/chills, dysuria, hematuria, urinary frequency or retention. In ER Patient afebrile, vital stable. No leukocytosis, BUN: 27, creatinine: 2.5. UA unremarkable CT abdomen and pelvis: 1. There is a 6 mm obstructing calculus in the mid to distal left ureter as above. This causes mild to moderate left hydroureteronephrosis. 2. There is a second punctate calculus in the left ureter just above the obstructing stone. 3. Additional bilateral nonobstructing renal calculi as above. 4. There is a 4.6 x 3.8 cm infrarenal abdominal aortic aneurysm. Nonemergent va scular surgical follow-up is advised. 4. Prostatomegaly. 5. Cholelithiasis. 6. The liver is enlarged and steatotic with early morphologic changes of cirrhosis. Strain urine IVF Oxycodone, Morphine prn pain Avoid NSAIDs NPO midnight Continue flomax Urology consult, possible procedure tomorrow Will need outpatient follow up on infrarenal abdominal aortic aneurysm CMP in am to assess liver functions (2) DANITZA (acute kidney injury): Plan: BUN: 27, Cr: 2.5. (was 1.8 on 09/09/21) Likely secondary to obstructing ureteral stone and NSAID use Monitor renal functions IVF Avoid NSAIDs and other nephrotoxic agents (3) HTN (hypertension): Plan: Continue amlodipine, metoprolol succinate Hole HCTZ with DANITZA (4) Dyslipidemia: Plan: Continue atorvastatin (5) Diabetes mellitus, type II: Plan: A1c: 6.1 on 05/29/21 Hold metformin Novolog sliding scale per protocol A1c in am (6) Sleep apnea: Plan: CPAP HS DVT Prophylaxis SCDs Full Code as per discussion with pt Follows with Dr Rivas for routine care Pt was seen and care coordinated with Dr Burciaga. See addendum Admission and Anticipated Discharge Date Admission Date: September 15, 2021 Results & Data Results & Data ([facility]) Vital Signs (Past 12 Hours) Vital Signs Temp Pulse Pulse Resp BP BP Pulse Ox 09/16/21 18:55 37.0 C 66 17 149/72 H 93 09/16/21 18:12 36.9 C 69 18 172/70 H 94 09/16/21 16:53 169/82 H 09/16/21 16:30 36.6 C 62 18 167/86 H 94 09/16/21 15:55 37.0 C 63 16 166/80 H 96 09/16/21 15:45 64 16 155/81 H 95 09/16/21 15:35 36.8 C 62 16 160/87 H 97 09/16/21 15:25 68 17 149/78 H 97 09/16/21 15:15 64 16 154/86 H 99 09/16/21 15:09 36.7 C 66 16 132/67 96 09/16/21 07:44 37.1 C 68 18 165/78 H 93 Laboratory Results Short CBC 09/16/21 Range/Units 05:44 WBC 9.87 (4.8-10.8) K/uL Hgb 13.4 L (14.0-18.0) g/dL Hct 39.8 L (42-52) % Plt Count 251 (130-400) K/uL BMP 09/16/21 05:44 Sodium 138 Potassium 3.6 Chloride 103 Carbon Dioxide 28 BUN 26 H Creatinine 2.20 H D Glucose 135 H Calcium 9.1 Liver Function 09/16/21 Range/Units 05:44 Total Bilirubin 0.9 (0.2-1) mg/dl AST 15 (15-37) U/L ALT 25 (12-78) Alkaline Phosphatase 89 (45-117) U/L Albumin 3.3 L (3.4-5.0) gm/dl Diagnostic Findings Retrograde Pyelogram 09/16/21 00:00 FL retrograde includes kub CLINICAL HISTORY: LEFT SIDED STENT COMPARISON STUDY: Abdomen and pelvis CT 09/15/2021. FLUOROSCOPY TIME: 34 seconds. FINDINGS: 4 fluoroscopic spot images of the abdomen and pelvis demonstrate retrograde opacification of the left renal collecting system followed by placement of a left ureteral stent. The ureteral stent appears in good position. IMPRESSION: Fluoroscopic assistance provided for left ureteral stent placement. ACT 112: Negative or not required by law. Electronically signed by: Naren Metcalf M.D. 09/16/2021 3:12 PM Medications Administered Current Inpatient Medications Acetaminophen (Acetaminophen 325 Mg Tab) 650 mg PO Q4H PRN PRN Reason: Pain or Fever Stop: 10/15/21 22:10 Last Admin: 09/16/21 09:58 Dose: 650 mg Documented by: Amlodipine Besylate (Amlodipine Besylate 5 Mg Tab) 5 mg PO PM ADILENE Stop: 10/15/21 22:59 Last Admin: 09/15/21 23:09 Dose: 5 mg Documented by: Atorvastatin Calcium (Atorvastatin 40 Mg Tab) 80 mg PO PM ADILENE Stop: 10/15/21 22:59 Last Admin: 09/15/21 23:10 Dose: 80 mg Documented by: Atropine Sulfate (Atropine Sulfate 0.1 Mg/Ml 10ml Syr) 0.5 mg IV Q1M PRN PRN Reason: PACU Use-HR<40 &/or Bradycardi Stop: 09/16/21 22:33 Dextrose (Dextrose 50% 50 Ml Syringe) 25 - 50 ml IV UD PRN; Protocol PRN Reason: Hypoglycemia Protocol Stop: 10/15/21 22:10 Ephedrine Sulfate (Ephedrine Sulfate 50 Mg/Ml Amp) 5 mg IV Q5M PRN PRN Reason: PACU Use Only-SBP<90 mmHg Stop: 09/16/21 22:33 Fentanyl Citrate (Fentanyl Citrate 100 Mcg/2 Ml Vial) 25 mcg IV Q5M PRN PRN Reason: PACU Use Only-Pain Stop: 09/16/21 22:33 Flumazenil (Flumazenil 0.1 Mg/1 Ml 10 Ml Vial) 0.2 mg IV Q2M PRN PRN Reason: PACU Use Only-Benzo Reversal Stop: 09/16/21 22:33 Glucagon (Glucagon For Inj 1 Mg Vial) 1 mg SQ UD PRN; Protocol PRN Reason: Hypoglycemia Protocol Stop: 10/15/21 22:10 Glucose (Glucose 10 Tabs/Tube) 4 - 8 tabs PO UD PRN; Protocol PRN Reason: Hypoglycemia Protocol Stop: 10/15/21 22:10 Glucose (Glucose 40% Gel 15 Gm Tube) 15 - 30 gm PO UD PRN; Protocol PRN Reason: Hypoglycemia Protocol Stop: 10/15/21 22:10 Promethazine HCl 12.5 mg/ (Sodium Chloride) 50.5 mls @ 204 mls/hr IV ONCE PRN PRN Reason: PACU Use Only-Nausea/Vomiting Stop: 09/16/21 22:33 Insulin Aspart (Insulin Aspart 100 Units/Ml 3 Ml Pen) 0 units SC ACHS ADILENE Stop: 10/15/21 22:59 Last Admin: 09/16/21 18:42 Dose: Not Given Documented by: Labetalol HCl (Labetalol Hcl Iv 5 Mg/Ml 20ml) 5 mg IV Q5M PRN PRN Reason: PACU Use-SBP>160 or DBP>100 Stop: 09/16/21 22:34 Magnesium Hydroxide (Magnesium Hydroxide Susp 30 Ml Udc) 30 ml PO Q12H PRN PRN Reason: Constipation Stop: 10/15/21 22:10 Metoprolol Succinate (Metoprolol Succ 50mg Ext Rel Tab) 200 mg PO DAILY [facility] Stop: 10/16/21 08:59 Last Admin: 09/16/21 07:45 Dose: 200 mg Documented by: Miscellaneous (Carbohydrates For Hypoglycemia ) 15 - 30 gm PO UD PRN PRN Reason: Hypoglycemia Protocol Stop: 10/15/21 22:10 Morphine Sulfate (Morphine Sulfate 4 Mg/Ml 1 Ml Carp\Vial) 3 mg IV Q3H PRN PRN Reason: Severe Pain Stop: 09/29/21 19:21 Last Admin: 09/15/21 22:28 Dose: 3 mg Documented by: Naloxone HCl (Naloxone Hcl 0.4 Mg/1 Ml Vial/Carp) 0.2 mg IV Q2M PRN PRN Reason: PACU Use Only-Opiate Reversal Stop: 09/16/21 22:33 Ondansetron HCl (Ondansetron Inj 2 Mg/Ml 2 Ml Vial) 4 mg IV Q6H PRN PRN Reason: Nausea Stop: 10/15/21 22:10 Last Admin: 09/15/21 22:36 Dose: 4 mg Documented by: Ondansetron HCl (Ondansetron Inj 2 Mg/Ml 2 Ml Vial) 4 mg IV ONCE PRN PRN Reason: PACU Use Only-Nausea/Vomiting Stop: 09/16/21 22:33 Oxycodone HCl (Oxycodone Hcl Ir 5 Mg Tab (Immediate Release)) 5 mg PO Q6H PRN PRN Reason: Moderate Pain Stop: 09/29/21 22:10 Last Admin: 09/16/21 05:42 Dose: 5 mg Documented by: Polyethylene Glycol (Polyethylene (Miralax) 17 Gm Pack) 17 gm PO DAILY PRN PRN Reason: Constipation Stop: 10/15/21 22:10 Tamsulosin HCl (Tamsulosin Hcl 0.4 Mg Cap) 0.4 mg PO [facility] Stop: 10/16/21 08:59 Last Admin: 09/16/21 07:44 Dose: 0.4 mg Documented by:
--- NOTE | 2021-09-16 19:44 | Discharge Summary ---
Date of Service September 16, 2021 Admission HPI Per Admitting Provider Patient is 60-year-old male with PMH hypertension, dyslipidemia, DM II, sleep apnea presented to ER with complaint of kidney stone. Patient states last week had onset left flank pain and was seen at [facility] ER on 09/09/2021. There he was diagnosed with 5 mm left ureter calculus. At that time his creatinine was 1.8. He was discharged home. Patient states he has been alternating ibuprofen 800 mg every 4 hours as well as 1 g Tylenol every 4 hours. Patient states pain seemed to decrease however today with onset of left flank pain again. Patient reports is urinating without difficulty and denies any hematuria. Denies any fever or chills. Last week did have episode of vomiting at onset of flank pain however has not had any vomiting since ER visit in [place]. Patient reports history of needing lithotripsy for kidney stone years ago. Denies fever/chills, diaphoresis, diarrhea, constipation, ALMONTE, dizziness, syncope, vision changes, neck pain, CP, SOB, orthopnea, palpitations, cough, sore throat, choking, otalgia, rhinorrhea, paresthesias, weakness, extremity weakness, extremity edema, rashes, dysuria. In ER Patient afebrile, vital stable. No leukocytosis, BUN: 27, creatinine: 2.5. CT abdomen and pelvis shows 6 mm mid distal left ureter calculus Discharge Data Allergies Allergy/AdvReac Type Severity Reaction Status Date / Time ASHLEY Inhibitors Allergy Severe ANGIOEDEMA Verified 03/30/20 21:28 ARB-Angiotensin Receptor Allergy Severe ANGIOEDEMA Verified 03/30/20 21:28 Antagonist Consultations 09/15/21 18:35 ED Decision to Admit Stat 09/15/21 22:11 Consult Urology Routine Procedures Performed Operation Date: 09/16/21 14:00 Actual Procedures p Left Ureteroscopy, Ureteral Dilitation, Retrograde Pyelogram,Stent, Aspiration(Left) - Dom Contreras, Ordered Studies 09/15/21 15:19 CT abd pelvis wo con Stat 09/16/21 FL retrograde includes kub Routine Hospital Course (1) Ureteral calculus, left: Patient is 60-year-old male with PMH hypertension, dyslipidemia, DM II, sleep apnea presented to ER with complaint of kidney stone x1 week. Seen [facility] 09/09/21 diagnosed with 5 mm left ureter calculus. Denies fever/chills, dysuria, hematuria, urinary frequency or retention. In ER Patient afebrile, vital stable. No leukocytosis, BUN: 27, creatinine: 2.5. UA unremarkable CT abdomen and pelvis: 1. There is a 6 mm obstructing calculus in the mid to distal left ureter as a shaw. This causes mild to moderate left hydroureteronephrosis. 2. There is a second punctate calculus in the left ureter just above the obstructing stone. 3. Additional bilateral nonobstructing renal calculi as above. 4. There is a 4.6 x 3.8 cm infrarenal abdominal aortic aneurysm. Nonemergent vascular surgical follow-up is advised. 4. Prostatomegaly. 5. Cholelithiasis. 6. The liver is enlarged and steatotic with early morphologic changes of cirrhosis. Strain urine IVF Oxycodone, Morphine prn pain Avoid NSAIDs NPO midnight Continue flomax Urology consult, possible procedure tomorrow Will need outpatient follow up on infrarenal abdominal aortic aneurysm CMP in am to assess liver functions (2) DANITZA (acute kidney injury): BUN: 27, Cr: 2.5. (was 1.8 on 09/09/21) Likely secondary to obstructing ureteral stone and NSAID use Monitor renal functions IVF Avoid NSAIDs and other nephrotoxic agents (3) HTN (hypertension): Continue amlodipine, metoprolol succinate Hole HCTZ with DANITZA (4) Dyslipidemia: Continue atorvastatin (5) Diabetes mellitus, type II: A1c: 6.1 on 05/29/21 Hold metformin Novolog sliding scale per protocol A1c in am (6) Sleep apnea: CPAP HS DVT Prophylaxis SCDs Full Code as per discussion with pt Follows with Dr Rivas for routine care Pt was seen and care coordinated with Dr Burciaga. See addendum Discharge Plan Discharge Items Patient Disposition: Home - Self-Care Reason For Visit: KIDNEY STONE, DANITZA Discharge Diagnosis: L ureteral stone s/p ureteroscopy with stent placement DANITZA Condition on Discharge: Good Activity: Resume your previous activity Non-emergency contact: Primary Care Provider Call non-emergency contact if: you have any medication questions and your symptoms worsen Follow-up/Referrals: Josue Burciaga MD [Primary Care Provider] - Diet: Carb Consistent or DM2 Addtl Attending Provider Instructions: Please take all medications as instructed on discharge list below which includes a short course of antibiotics. It is recommended that you followup with your primary care physician within one week of discharge and ensure your kidney function is rechecked in the next 2-3 days. Please follow-up with Dr. Mahoney as instructed for definitive stone treatment and stent removal. Please use pyridium as needed for any burning sensation or bladder spasms you may experience. This will turn your urine orange and will stain your underwear. Please continue taking flomax until follow-up with Dr. Mahoney. Percocet has been provided for you as needed for severe pain, however, it is p referred to take plain Tylenol for mild discomfort. Percocet is a narcotic that may impair your ability to drive. It was a pleasure taking care of you! Please call if you have any questions or problems. You can reach a [facility] hospitalist on duty at [facility] [address] 24 hours a day by calling [phone]. Take care of yourself. Emily Hernandez, [facility] Medical Centerist Pending Studies at Discharge: No Stand-Alone Forms: My [facility] Medications and DC Order Prescriptions: New tamsulosin 0.4 mg Capsule 0.4 mg PO QAM Qty: 30 RF: 0 phenazopyridine [Pyridium] 200 mg tablet 200 mg PO Q8H PRN (Reason: dysuria/bladder spasms) Qty: 20 RF: 0 oxycodone-acetaminophen [Percocet] 5-325 mg tablet 1 tab PO Q8H PRN (Reason: severe pain) Qty: 10 RF: 0 ciprofloxacin HCl [Cipro] 500 mg tablet 500 mg PO BID Qty: 10 RF: 0 Continued metoprolol succinate [Toprol XL] 100 mg tablet extended release 24 hr 200 mg PO DAILY RF: 0 hydrochlorothiazide 25 mg tablet 25 mg PO DAILY RF: 0 cholecalciferol (vitamin D3) [Vitamin D3] 50 mcg (2,000 unit) Capsule 150 mcg PO DAILY RF: 0 acetaminophen [Tylenol Extra Strength] 500 mg Tablet 1,000 mg PO Q6H PRN (Reason: Pain) RF: 0 coenzyme Q10 [CoQ-10] 100 mg Capsule 100 mg PO DAILY RF: 0 atorvastatin 80 mg tablet 80 mg PO PM RF: 0 amlodipine 5 mg tablet 5 mg PO PM RF: 0 metformin 500 mg tablet extended release 24 hr 1,000 mg PO DAILY RF: 0 Discharge Orders: Discharge Order (Routine); Ordered 09/16/21 Ordered By: Emily Cardozo/Other Patient Handouts: High Blood Sugar (Hyperglycemia), Managing Type 2 Diabetes Admission Data Admit Date/Time: 09/15/21 18:40 Attending Provider: Emily Hernandez Admit Provider: Rommel Rosenthal Primary Care Provider: Josue Burciaga Other Providers: Rommel Rosenthal ; Dom Contreras
[2021-09-16] MEDS ORDERED: PHENAZOPYRIDINE HCL 200 MG TAB PO PRN (19:47)
[2021-09-16] MEDS ORDERED: PHENAZOPYRIDINE HCL 200 MG TAB PO SCH (19:48)
[2021-09-16] MEDS ORDERED: CIPROFLOXACIN 500 MG TAB PO SCH ×2 (20:00→21:00)
== END 2021-09-16 21:01 | disposition home or self-care (01) | DRG 661 ==
LOC: ED 12:55 → 3N 18:40 → SUATTDRO 18:40 → 3N 20:36

== ENCOUNTER 2022-07-28 11:25 | Inpatient (IN) ==
[2022-07-28] MEDS ORDERED: ONDANSETRON INJ 2 MG/ML 2 ML VIAL IV STA (11:43)
[2022-07-28] MEDS ORDERED: SODIUM CHLORIDE 0.9% 1000ML 1,000 ML IV SCH (11:45)
--- NOTE | 2022-07-28 11:47 | Emergency Department Note ---
History of Present Illness General Chief complaint: Flu Like Symptoms Stated complaint: NO APPETITE, BODY ACHES Time Seen by Provider: 07/28/22 11:28 History of Present Illness Maximum Pain Intensity: 2 61-year-old male presents to the ED with a chief complaint of low-grade fever, decreased appetite and some nausea. The symptoms started on Saturday. He states that he had 1 3 temperature prior to arrival. He took some Tylenol this morning. He denies a sore throat, cough, congestion or runny nose. Denies any shortness of breath or chest pains. He did state that he had some achiness in his joints but that seems to be getting better. Denies any tick exposures. Nothing makes his symptoms better or worse. Home Medications Medication Instructions Recorded Confirmed Type hydrochlorothiazide 25 mg tablet 25 mg PO QAM 03/30/20 07/20/22 History metoprolol succinate 100 mg 200 mg PO QAM 03/30/20 07/20/22 History tablet,extended release 24 hr (Toprol XL) amlodipine 5 mg tablet 5 mg PO HS 09/15/21 07/20/22 History atorvastatin 80 mg tablet 80 mg PO QAM 09/15/21 07/20/22 History cholecalciferol (vitamin D3) 50 50 mcg PO WK 12/07/21 07/20/22 History mcg (2,000 unit) capsule (Vitamin D3) coenzyme Q10 100 mg capsule 100 mg PO WK 12/07/21 07/20/22 History (CoQ-10) sildenafil (pulm.hypertension) 20 20 - 100 mg PO DIRECTED PRN 12/07/21 07/18/22 History mg tablet Erectile Dysfunction acetaminophen 500 mg tablet 1,000 mg PO DIRECTED PRN Pain 03/26/22 07/20/22 History (Tylenol Extra Strength) furosemide 40 mg tablet (Lasix) 40 mg PO DAILY #3 tabs 03/27/22 07/20/22 Rx potassium chloride 20 mEq 20 meq PO DAILY #3 tabs 03/27/22 07/20/22 Rx tablet,extended release phenazopyridine 200 mg tablet 200 mg PO Q8H PRN pain #10 tabs 07/20/22 Rx (Pyridium) tamsulosin 0.4 mg capsule 0.4 mg PO HS #30 caps 07/20/22 07/20/22 Rx Allergies Allergy/AdvReac Type Severity Reaction Status Date / Time ASHLEY Inhibitors Allergy Severe ANGIOEDEMA-LOSARTAN Verified 07/20/22 08:00 POTASSIUM ARB-Angiotensin Receptor Allergy Severe ANGIOEDEMA-LOSARTAN Verified 07/20/22 08:00 Antagonist POTASSIUM Past Med/Surg History Medical History Aortic aneurysm An infrarenal abdominal aortic aneurysm measures 4.6 x 3.8 cm per 09/2021, stable x 10+ years per pt, under surveillance by [facility]- per 12/2021 office visit, recommend f/u one year History of cardiac murmur as a child History of kidney stones HLD (hyperlipidemia) HTN (hypertension) Hx of fracture of rib 11/2021, from fall Prediabetes Sleep apnea CPAP Surgical History History of colonoscopy History of cystoscopy History of lithotripsy History of tooth extraction S/P ureteral stent placement Family History Other Cancer Hypertension No family history of adverse response to anesthesia Social History Smoking Status: Never smoker Second Hand Exposure: No; Hx Alcohol Use: Yes Alcohol Intake Frequency: Monthly or Less Hx Substance Use: No Preferred Language: Lebanese Communication Ability: Effective Visual Impairment: No Limitations Bad Cloth Checker Required: No Beliefs That Will Affect Care: None Current Living Situation: Spouse Feels Safe at Home: Yes Assistive Devices: CPAP and Glasses Review of Systems A total of 10 systems reviewed and were otherwise negative Physical Exam Vital Signs Vital Signs - 24 hr 07/28/22 11:29 07/28/22 11:59 07/28/22 13:07 Temperature 36.6 C Temperature Source Temporal Artery Scan Pulse Rate 80 82 Pulse Rate [Radial] 80 Pulse Rhythm [Radial] Regular Pulse Strength [Radial] Normal Respiratory Rate 16 20 18 Respiratory Effort / Characteristics Non-Labored Spontaneous Respiratory Depth Normal Respiratory Pattern Regular Blood Pressure 134/70 Blood Pressure [Left Arm] 152/71 H Blood Pressure Mean 91 Blood Pressure Mean [Left Arm] 98 Blood Pressure Position Sitting Blood Pressure Position [Left Arm] Lying Pulse Oximetry 93 98 96 Oxygen Delivery Method Room Air Room Air Room Air Sepsis Recent Fever Within 48 Hours No Sepsis New/Unexplained Change in Mental Status No Sepsis Action Taken by Nursing No Action Required CONSTITUTIONAL/VITAL SIGNS: Reviewed / noted above. GENERAL: Non-toxic in appearance. INTEGUMENTARY: Warm, dry, and [place]. HEAD: Normocephalic. EYES: without scleral icterus or trauma. ENT/OROPHARYNX: clear and moist. LYMPHADENOPATHY/NECK: Is supple without lymphadenopathy or meningismus. RESPIRATORY: Clear to auscultation bilaterally. No increased work of breathing. CARDIOVASCULAR: Regular rate and rhythm. GI/ABDOMEN: Soft and nontender. No organomegaly or pulsatile mass. EXTREMITIES: Warm and well perfused. BACK: No CVA tenderness. NEUROLOGICAL: Intact without focal deficits. PSYCHIATRIC: normal affect. MUSCULOSKELETAL: Normally developed with good muscle tone. TRIAGE NURSING DOCUMENTATION REVIEWED. Course Administered Medications Discontinued Medications Sodium Chloride (Nss 1000ml) 1,000 mls @ 999 mls/hr IV .Q1H1M ADILENE Stop: 07/28/22 12:45 Last Infusion: 07/28/22 13:01 Dose: 0 mls/hr Documented By: Admin: 07/28/22 11:58 Dose: 999 mls/hr Documented By: RAMONE Cefepime HCl (Maxipime) 2,000 mg in 20 mls @ 5 mls/min IV NOW STA; Protocol Stop: 07/28/22 12:39 Last Admin: 07/28/22 13:01 Dose: 5 mls/min Documented By: RAMONE Ondansetron HCl (Ondansetron Inj 2 Mg/Ml 2 Ml Vial) 4 mg IV NOW STA Stop: 07/28/22 11:44 Last Admin: 07/28/22 11:58 Dose: 4 mg Documented By: RAMONE Medical Decision Making Differential Diagnosis Differential includes acute coronary syndrome, myocardial infarction, CVA, TIA, anemia, infection, pneumonia, UTI, pyelonephritis, poor nutrition, dehydration, electrolyte disturbance,hypoglycemia. Medical Records Attestation: I reviewed the patient's medical records. Home Medications Current Medication List: was personally reviewed by me Laboratory Data Attestation: I reviewed the patient's lab results. Result diagrams: 07/28/22 11:55 07/28/22 11:55 Lab Results 07/28/22 07/28/22 07/28/22 Range/Units 11:55 11:55 11:55 WBC 22.23 H (4.8-10.8) K/ul RBC 4.37 L (4.63-6.08) M/uL Hgb 13.4 L (14.0-18.0) g/dl Hct 38.5 L (40.1-51.0) % MCV 88.1 (80.0-100.0) fL MCH 30.7 (25.0-34.0) pg MCHC 34.8 (32.0-36.0) g/dL RDW Std Deviation 41.4 (36.4-46.3) fL RDW Coeff of Marcio 12.8 (11.5-14.5) % Plt Count 170 (130-400) K/uL MPV 9.8 (9.4-12.4) fL Immature Gran % (Auto) 2.0 % Neut % (Auto) 86.2 % Lymph % (Auto) 3.6 % [place] % (Auto) 7.2 % Eos % (Auto) 0.8 % Baso % (Auto) 0.2 % Neut # (Auto) 19.14 H (1.4-6.5) K/uL Lymph # (Auto) 0.80 L (1.2-3.4) K/uL [place] # (Auto) 1.61 H (0.24-0.82) K/uL Eos # (Auto) 0.18 (0-0.50) K/uL Baso # (Auto) 0.05 (0-0.2) K/uL Immature Gran # (Auto) 0.45 H (0.00-0.02) K/uL Toxic Granulation 1+ Toxic Vacuolation 1+ Dohle Bodies 1+ Sodium 133 L (136-145) mmol/L Potassium 3.9 (3.5-5.1) mmol/L Chloride 96 L (98-107) mmol/L Carbon Dioxide 26 (21-32) mmol/L Anion Gap 11 (3-11) BUN 35 H (6-23) mg/dl Creatinine 2.67 H (0.6-1.4) mg/dl Est Cr Clr Drug Dosing 37.7 ml/min Est GFR ( Amer) 28.6 ml/min Est GFR (Non-Af Amer) 24.7 ml/min BUN/Creatinine Ratio 13.1 (10-20) Glucose 179 H (70-99(Fasting)) mg/dl Calcium 9.2 (8.5-10.1) mg/dl Total Bilirubin 2.0 H (0.2-1.0) mg/dl AST 16 (13-39) U/L ALT 18 (7-52) U/L Alkaline Phosphatase 62 (34-104) U/L Troponin I High Sens 57.3 H* (0-20) pg/ml Total Protein 7.1 (6.0-8.3) gm/dl Albumin 3.8 (3.4-5.0) gm/dl Globulin 3.3 (2.5-4.0) gm/dl Albumin/Globulin Ratio 1.2 (0.9-2) SARS-CoV-2, RNA, NAAT NEGATIVE (NEGATIVE) Imaging Data Radiologist's Impression: Chest X-Ray 07/28/22 12:25 XR chest 1V portable HISTORY: fever COMPARISON: Chest and left rib series 11/18/2021. FINDINGS: No pneumothorax. No pleural effusions. Left lateral basilar pleural thickening remains unchanged. The heart is normal in size. Patchy hazy airspace opacities within the left lower lobe which are new from the prior study. This consistent with a developing pneumonia. Healing left posterior seventh and eighth rib fractures are noted. IMPRESSION: Hazy patchy airspace opacities within the left lung base which are new from the prior study and likely represent a developing pneumonia. ACT 112: Negative or not required by law. Electronically signed by: Naren Metcalf M.D. 07/28/2022 12:38 PM ECG Data Attestation: I personally reviewed and interpreted this ECG as follows: Additional Comments: Twelve-lead EKG: Per my interpretation shows a normal sinus rhythm at a rate of 82. No ST elevation. No PVCs. Normal QTC. MDM Narrative 61-year-old male presents to the ED with a chief complaint of decreased appetite, nausea, low-grade fever and some achiness. His vital signs here are normal. His physical exam was unremarkable. EKG shows a normal sinus rhythm. White blood cell count was elevated 22,000. The patient's BUN is 35 and creatinine is 2.67. Baseline is about 1.5. COVID test was negative. Mildly el evated. Chest x-ray shows a left lower lobe pneumonia. The patient was given IV cefepime. He was also given IV Zofran for nausea and a liter of normal saline IV. He will be seen by the hospitalist for further evaluation and care. Impression & Plan Nausea, Anorexia, Fever, DANITZA (acute kidney injury), Acute dehydration, Left lower lobe pneumonia Discharge Plan Visit Data Chief Complaint: Flu Like Symptoms Stated Complaint: NO APPETITE, BODY ACHES ED Provider: Alonzo Hannon Discharge Problem: Nausea, Anorexia, Fever, DANITZA (acute kidney injury), Acute dehydration, Left lower lobe pneumonia Patient Disposition: Being Evaluated by Hospitalist Forms Stand Alone Forms: My [facility] Prescriptions Prescriptions: No Action metoprolol succinate [Toprol XL] 100 mg tablet extended release 24 hr 200 mg PO QAM hydrochlorothiazide 25 mg tablet 25 mg PO QAM atorvastatin 80 mg tablet 80 mg PO QAM amlodipine 5 mg tablet 5 mg PO HS sildenafil (pulm.hypertension) 20 mg tablet 20 - 100 mg PO DIRECTED PRN (Reason: Erectile Dysfunction) coenzyme Q10 [CoQ-10] 100 mg Capsule 100 mg PO WK cholecalciferol (vitamin D3) [Vitamin D3] 50 mcg (2,000 unit) Capsule 50 mcg PO WK acetaminophen [Tylenol Extra Strength] 500 mg Tablet 1,000 mg PO DIRECTED PRN (Reason: Pain) potassium chloride 20 mEq tablet extended release 20 meq PO DAILY Qty: 3 0RF furosemide [Lasix] 40 mg tablet 40 mg PO DAILY Qty: 3 0RF phenazopyridine [Pyridium] 200 mg tablet 200 mg PO Q8H PRN (Reason: pain) Qty: 10 0RF tamsulosin 0.4 mg capsule 0.4 mg PO HS Qty: 30 0RF Referrals Referrals: Josue Burciaga MD [Primary Care Provider] -
[2022-07-28 12:02] LABS: Hematocrit (blood only) 38.5 % (40.1-51.0); Hemoglobin 13.4 g/dl (14.0-18.0); Mean Corpuscular Hemoglobin 30.7 pg (25.0-34.0); Mean Corpuscular Hgb Conc 34.8 g/dL (32.0-36.0); Mean Corpuscular Volume 88.1 fL (80.0-100.0); Mean Platelet Volume 9.8 fL (9.4-12.4); Platelet Count 170 K/uL (130-400); RDW Coefficient of Variation 12.8 % (11.5-14.5); RDW Standard Deviation 41.4 fL (36.4-46.3); Red Blood Count 4.37 M/uL (4.63-6.08); White Blood Count 22.23 K/ul (4.8-10.8)
[2022-07-28 12:22] LABS: Albumin Globulin Ratio 1.2 (0.9-2); Albumin Level 3.8 gm/dl (3.4-5.0); BUN Creatinine Ratio 13.1 (10-20); Calcium 9.2 mg/dl (8.5-10.1); Creatinine Clr Calc Pharmacy 37.7 ml/min; Est GFR (African American) 28.6 ml/min; Est GFR (Non-African American) 24.7 ml/min; Globulin 3.3 gm/dl (2.5-4.0); Potassium 3.9 mmol/L (3.5-5.1); Total Protein 7.1 gm/dl (6.0-8.3)
[2022-07-28 12:30] LABS: Basophils # (auto) 0.05 K/uL (0-0.2); Basophils % (auto) 0.2 %; Dohle Bodies 1+; Eosinophils # (auto) 0.18 K/uL (0-0.50); Eosinophils % (auto) 0.8 %; Immature Granulocytes # (auto) 0.45 K/uL (0.00-0.02); Lymphocytes % (auto) 3.6 %; Monocytes # (auto) 1.61 K/uL (0.24-0.82); Monocytes % (auto) 7.2 %; Neutrophils # (auto) 19.14 K/uL (1.4-6.5); Neutrophils % (auto) 86.2 %; Toxic Granulation 1+; Toxic Vacuolation 1+
[2022-07-28 12:32] LABS: Troponin I High Sensitivity 57.3 pg/ml (0-20)
[2022-07-28] MEDS ORDERED: CEFEPIME 2,000 MG/20 ML VIAL IV STA (12:36)
--- NOTE | 2022-07-28 12:40 | XRay Report ---
XR chest 1V portable HISTORY: fever COMPARISON: Chest and left rib series 11/18/2021. FINDINGS: No pneumothorax. No pleural effusions. Left lateral basilar pleural thickening remains unch anged. The heart is normal in size. Patchy hazy airspace opacities within the left lower lobe which a re new from the prior study. This consistent with a developing pneumonia. Healing left posterior mariann nth and eighth rib fractures are noted. IMPRESSION: Hazy patchy airspace opacities within the left lung base which are new from the prior study and likel y represent a developing pneumonia. ACT 112: Negative or not required by law. Electronically signed by: Naren Metcalf M.D. 07/28/2022 12:38 PM
[2022-07-28 13:39] LABS: Appearance Urine Cloudy (Clear); Bacteria Urine Automated Negative (Negative); Bilirubin Urine Negative (Negative); Blood Urine 3+ (Negative); Color Urine Dark Yellow; Epithelial Cell Urine Auto 20-30 /lpf (0-5); Glucose Urine UA Negative (Negative); Ketones Urine Negative (Negative); Leukocyte Esterase Urine Trace (Negative); Nitrite Urine Negative (Negative); Protein Urine 2+ (Negative); Specific Gravity Urine 1.022 (1.000-1.030); Urobilinogen Urine Negative (Negative)
--- NOTE | 2022-07-28 15:12 | Electrocardiogram Report ---
Test Reason : Blood Pressure : / mmHG Vent. Rate : 082 BPM Atrial Rate : 082 BPM P-R Int : 178 ms QRS Dur : 096 ms QT Int : 368 ms P-R-T Axes : 037 010 071 degrees QTc Int : 429 ms Poor data quality, interpretation may be adversely affected Normal sinus rhythm Nonspecific ST and T wave abnormality Abnormal ECG When compared with ECG of 03-NOV-2021 15:52, Vent. rate has increased BY 28 BPM Nonspecific T wave abnormality now evident in Lateral leads Confirmed by Kendall Bullock ([id number]) on 07/28/2022 3:12:06 PM Referred By: REFERRED SELF Confirmed By:Kendall Bullock
[2022-07-28] MEDS ORDERED: ACETAMINOPHEN 325 MG TAB PO STA (15:21)
--- NOTE | 2022-07-28 16:08 | History & Physical Report ---
Date of Service July 28, 2022 Assessment & Plan (1) Sepsis: Plan: Patient presents with sepsis, fever 39.2 Celsius, WBC 22,000, creatinine 2.7 Procalcitonin also elevated at 23 Troponin mildly elevated at 50s, secondary to above Urine culture, blood cultures pending Recently had procedures with urology due to renal calculi, retained stent CT abdomen pelvis obtained,possible pyelonephritis Await urine cultures, continue broad-spectrum antibiotics, IV cefepime Chest x-ray also obtained, and concern for possible left lower lung pneumonia Patient reports some congestion, minimal intermittent dry cough no shortness of breath Add guaifenesin, flutter valve, incentive spirometer Add doxycycline Continue to closely monitor DANITZA on CKD stage 3a - Cr elevated at 2.7 - IVF given in ED, monitor response, daily BMP - post void residual in ED 70cc DM type 2 - at home on metformin 500 mg daily , will hold while inpatient -We will need to monitor blood sugar levels -Patient currently with nausea, poor appetite HTN - on amlodipine, metoprolol, HCTZ at home - hold HCTZ due to DANITZA HLD - cont. home statin PEEWEE on CPAP - cpap ordered DVT ppx - SCDs History of Present Illness Chief Complaint: fever, poor appetite Primary Care Provider: Josue Burciaga MD Pt is a 61-year-old male, with history of hyperlipidemia, hypertension, AAA, PEEWEE on CPAP, DM type II on metformin, CKD stage III a , renal calculi status post recent procedures with urology -stone and stent removal, who now presents with fever, loss of appetite, nausea. Patient reports having procedures with Dr. Contreras for his renal calculi, and retained stent. He was discharged on Keflex which he took. He reports that previously he had quite a bit of burning with urination, however now denies that. He does reports "kidney/flank pain" more on the right. He denies any difficulty with urination though. About 3 days ago, he started to feel unwell, with poor appetite, low-grade fevers, nasal congestion, dry intermittent cough, and also increased flank pain. In the ED patient febrile with temperature 39.2 C. Creatinine 2.7. Procalcitonin also elevated at 27, WBC elevated at 22,000. He was given IV fluids, and started on IV antibiotics cefepime. Chest x-ray was obtained in the ED, concerning forr poss. starting pna. Given recent history of urologic procedures and patient reporting flank pain, will also obtain CT abdomen pelvis. Allergies Allergy/AdvReac Type Severity Reaction Status Date / Time ASHLEY Inhibitors Allergy Severe ANGIOEDEMA-LOSARTAN Verified 07/20/22 08:00 POTASSIUM ARB-Angiotensin Receptor Allergy Severe ANGIOEDEMA-LOSARTAN Verified 07/20/22 08:00 Antagonist POTASSIUM Home Medications Medication Instructions Recorded Confirmed Type hydrochlorothiazide 25 mg tablet 25 mg PO QAM 03/30/20 07/20/22 History metoprolol succinate 100 mg 200 mg PO QAM 03/30/20 07/20/22 History tablet,extended release 24 hr (Toprol XL) amlodipine 5 mg tablet 5 mg PO HS 09/15/21 07/20/22 History atorvastatin 80 mg tablet 80 mg PO QAM 09/15/21 07/20/22 History cholecalciferol (vitamin D3) 50 50 mcg PO WK 12/07/21 07/20/22 History mcg (2,000 unit) capsule (Vitamin D3) coenzyme Q10 100 mg capsule 100 mg PO WK 12/07/21 07/20/22 History (CoQ-10) sildenafil (pulm.hypertension) 20 20 - 100 mg PO DIRECTED PRN 12/07/21 07/18/22 History mg tablet Erectile Dysfunction potassium chloride 20 mEq 20 meq PO DAILY #3 tabs 03/27/22 07/20/22 Rx tablet,extended release phenazopyridine 200 mg tablet 200 mg PO Q8H PRN pain #10 tabs 07/20/22 Rx (Pyridium) tamsulosin 0.4 mg capsule 0.4 mg PO HS #30 caps 07/20/22 07/20/22 Rx metformin 500 mg PO 07/28/22 History Past Med/Surg History Medical History Aortic aneurysm An infrarenal abdominal aortic aneurysm measures 4.6 x 3.8 cm per 09/2021, stable x 10+ years per pt, under surveillance by [facility] vascular- per 12/2021 office visit, recommend f/u one year History of cardiac murmur as a child History of kidney stones HLD (hyperlipidemia) HTN (hypertension) Hx of fracture of rib 11/2021, from fall Prediabetes Sleep apnea CPAP Surgical History History of colonoscopy History of cystoscopy History of lithotripsy History of tooth extraction S/P ureteral stent placement Family History (Updated 07/28/22 @ 16:10 by Kayden Andino MD) Father Hypertension Heart disease Other Cancer No family history of adverse response to anesthesia Social History Smoking Status: Never smoker Second Hand Exposure: No; Hx Alcohol Use: Yes Alcohol Intake Frequency: Monthly or Less Hx Substance Use: No Preferred Language: Indian Communication Ability: Effective Visual Impairment: No Limitations Tonal Regulator Required: No Beliefs That Will Affect Care: None Current Living Situation: Spouse Feels Safe at Home: Yes Assistive Devices: CPAP and Glasses Review of Systems Review of Systems: All systems reviewed & are unremarkable except as noted in HPI & below Physical Exam Constitutional: WD/WN, vitals as above (obese M in NAD) Eyes: PERRL, conjunctivae normal, anicteric sclerae ENMT: external ear and nose normal, oropharynx normal Neck: + thick neck Respiratory: normal respiratory effort, lungs clear to auscultation Cardiovascular: RRR, no murmur, no edema Chest (Breasts): Chest: normal inspection of chest Gastrointestinal (Abdomen): normal bowel sounds, soft, nontender, no hepatosplenomegaly (obese, + CVA tenderness R>L) Musculoskeletal: no cyanosis or clubbing, extremities motor strength 5/5 Skin: no rashes, warm and dry Neurologic: PERRL, EOMI, accommodation nl, no face palsy, no dysarthria Psychiatric: A+Ox3, euthymic affect Genitourinary: + CVA tenderness Lymphatic: no lymphedema Results & Data Results & Data ([facility]) Vital Signs (Past 12 Hours) Vital Signs Temp Pulse Pulse Resp BP BP Pulse Ox 07/28/22 15:12 39.2 C H 07/28/22 14:42 94 H 18 169/75 H 94 07/28/22 13:07 80 18 152/71 H 96 07/28/22 11:59 82 20 98 07/28/22 11:29 36.6 C 80 16 134/70 93 O2 Del Method 07/28/22 15:12 07/28/22 14:42 Room Air 07/28/22 13:07 Room Air 07/28/22 11:59 Room Air 07/28/22 11:29 Room Air Laboratory Results 07/28/22 07/28/22 07/28/22 Range/Units 13:06 12:58 12:50 WBC (4.8-10.8) K/ul RBC (4.63-6.08) M/uL Hgb (14.0-18.0) g/dl Hct (40.1-51.0) % MCV (80.0-100.0) fL MCH (25.0-34.0) pg MCHC (32.0-36.0) g/dL RDW Std Deviation (36.4-46.3) fL RDW Coeff of Marcio (11.5-14.5) % Plt Count (130-400) K/uL MPV (9.4-12.4) fL Immature Gran % (Auto) % Neut % (Auto) % Lymph % (Auto) % [place] % (Auto) % Eos % (Auto) % Baso % (Auto) % Neut # (Auto) (1.4-6.5) K/uL Lymph # (Auto) (1.2-3.4) K/uL [place] # (Auto) (0.24-0.82) K/uL Eos # (Auto) (0-0.50) K/uL Baso # (Auto) (0-0.2) K/uL Immature Gran # (Auto) (0.00-0.02) K/uL Toxic Granulation Toxic Vacuolation Dohle Bodies Sodium (136-145) mmol/L Potassium (3.5-5.1) mmol/L Chloride (98-107) mmol/L Carbon Dioxide (21-32) mmol/L Anion Gap (3-11) BUN (6-23) mg/dl Creatinine (0.6-1.4) mg/dl Est Cr Clr Drug Dosing ml/min Est GFR ( Amer) ml/min Est GFR (Non-Af Amer) ml/min BUN/Creatinine Ratio (10-20) Glucose (70-99(Fasting)) mg/dl Lactate 1.6 (0.4-2.0) mmol/L Calcium (8.5-10.1) mg/dl Total Bilirubin (0.2-1.0) mg/dl AST (13-39) U/L ALT (7-52) U/L Alkaline Phosphatase (34-104) U/L Troponin I High Sens (0-20) pg/ml Total Protein (6.0-8.3) gm/dl Albumin (3.4-5.0) gm/dl Globulin (2.5-4.0) gm/dl Albumin/Globulin Ratio (0.9-2) Procalcitonin 23.17 H (0-0.5) ng/ml Urine Color Dark Yellow Urine Appearance Cloudy A (Clear) Urine pH 5.0 (4.5-7.5) Ur Specific [place] 1.022 (1.000-1.030) Urine Protein 2+ H (Negative) Urine Glucose (UA) Negative (Negative) Urine Ketones Negative (Negative) Urine Blood 3+ H (Negative) Urine Nitrite Negative (Negative) Urine Bilirubin Negative (Negative) Urine Urobilinogen Negative (Negative) Ur Leukocyte Esterase Trace H (Negative) Urine WBC (Auto) 10-30 H (0-5) /hpf Urine RBC (Auto) 10-30 H (0-4) /hpf U Hyaline Cast (Auto) 1-5 (0-5) /lpf U Epithel Cells (Auto) 20-30 H (0-5) /lpf Urine Bacteria (Auto) Negative (Negative) Granular Casts 1-5 H (0) /lpf Urine Yeast Not Reportable SARS-CoV-2, RNA, NAAT (NEGATIVE) 07/28/22 07/28/22 07/28/22 Range/Units 11:55 11:55 11:55 WBC 22.23 H (4.8-10.8) K/ul RBC 4.37 L (4.63-6.08) M/uL Hgb 13.4 L (14.0-18.0) g/dl Hct 38.5 L (40.1-51.0) % MCV 88.1 (80.0-100.0) fL MCH 30.7 (25.0-34.0) pg MCHC 34.8 (32.0-36.0) g/dL RDW Std Deviation 41.4 (36.4-46.3) fL RDW Coeff of Marcio 12.8 (11.5-14.5) % Plt Count 170 (130-400) K/uL MPV 9.8 (9.4-12.4) fL Immature Gran % (Auto) 2.0 % Neut % (Auto) 86.2 % Lymph % (Auto) 3.6 % [place] % (Auto) 7.2 % Eos % (Auto) 0.8 % Baso % (Auto) 0.2 % Neut # (Auto) 19.14 H (1.4-6.5) K/uL Lymph # (Auto) 0.80 L (1.2-3.4) K/uL [place] # (Auto) 1.61 H (0.24-0.82) K/uL Eos # (Auto) 0.18 (0-0.50) K/uL Baso # (Auto) 0.05 (0-0.2) K/uL Immature Gran # (Auto) 0.45 H (0.00-0.02) K/uL Toxic Granulation 1+ Toxic Vacuolation 1+ Dohle Bodies 1+ Sodium 133 L (136-145) mmol/L Potassium 3.9 (3.5-5.1) mmol/L Chloride 96 L (98-107) mmol/L Carbon Dioxide 26 (21-32) mmol/L Anion Gap 11 (3-11) BUN 35 H (6-23) mg/dl Creatinine 2.67 H (0.6-1.4) mg/dl Est Cr Clr Drug Dosing 37.7 ml/min Est GFR ( Amer) 28.6 ml/min Est GFR (Non-Af Amer) 24.7 ml/min BUN/Creatinine Ratio 13.1 (10-20) Glucose 179 H (70-99(Fasting)) mg/dl Lactate (0.4-2.0) mmol/L Calcium 9.2 (8.5-10.1) mg/dl Total Bilirubin 2.0 H (0.2-1.0) mg/dl AST 16 (13-39) U/L ALT 18 (7-52) U/L Alkaline Phosphatase 62 (34-104) U/L Troponin I High Sens 57.3 H* (0-20) pg/ml Total Protein 7.1 (6.0-8.3) gm/dl Albumin 3.8 (3.4-5.0) gm/dl Globulin 3.3 (2.5-4.0) gm/dl Albumin/Globulin Ratio 1.2 (0.9-2) Procalcitonin (0-0.5) ng/ml Urine Color Urine Appearance (Clear) Urine pH (4.5-7.5) Ur Specific [place] (1.000-1.030) Urine Protein (Negative) Urine Glucose (UA) (Negative) Urine Ketones (Negative) Urine Blood (Negative) Urine Nitrite (Negative) Urine Bilirubin (Negative) Urine Urobilinogen (Negative) Ur Leukocyte Esterase (Negative) Urine WBC (Auto) (0-5) /hpf Urine RBC (Auto) (0-4) /hpf U Hyaline Cast (Auto) (0-5) /lpf U Epithel Cells (Auto) (0-5) /lpf Urine Bacteria (Auto) (Negative) Granular Casts (0) /lpf Urine Yeast SARS-CoV-2, RNA, NAAT NEGATIVE (NEGATIVE) Diagnostic Findings CXR IMPRESSION: Hazy patchy airspace opacities within the left lung base which are new from the prior study and likely represent a developing pneumonia. CT Abd. pelvis IMPRESSION: 1. Moderate left perinephric edema with urothelial thickening of the left renal collecting system and left ureter. This has progressed in the interval. No hydronephrosis. This could be due to a pyelonephritis/pyelitis or a recently passed stone. Recommend correlation with urinalysis. 2. Bilateral nephrolithiasis. No ureteral stones identified. 3. Mild bladder wall thickening, unchanged. This may be due to chronic outlet obstruction from the enlarged prostate gland. A cystitis could also have a similar appearance. 4. Cholelithiasis. No gallbladder wall thickening. 5. Hepatic steatosis with early changes of cirrhosis. This is similar to the prior study. 6. Colonic diverticulosis. No evidence for acute diverticulitis. 7. Abdominal aortic aneurysms measuring up to 4.3 cm, unchanged. Code Status & VTE Plan VTE Prophylaxis Plan VTE Prophylaxis will be ordered: Yes
--- NOTE | 2022-07-28 16:16 | CT Scan Report ---
ABDOMEN AND PELVIS CT WITHOUT CONTRAST CT DOSE: 1235.51 mGy.cm HISTORY: Lower pelvic pain. TECHNIQUE: Multiaxial CT images of the abdomen and pelvis were performed without contrast. A dose lo wering technique was utilized adhering to the principles of ALARA. COMPARISON STUDY: Abdomen and pelvis CT 10/13/2021. FINDINGS: A stable 3 mm nodule within the left lower lobe on image 21. Mild dependent changes seen wi thin the left lung base. The there are old left posterior rib fractures. Cholelithiasis. No gallbladd er wall thickening. Hepatic steatosis with a subtle nodular contour to the liver consistent with mild cirrhosis. This remains unchanged. The unenhanced pancreas, spleen, and adrenal glands are unremarka ble. There is a 3.7 cm suprarenal abdominal aortic aneurysm and a 4.3 cm infrarenal abdominal aortic aneurysm. These are similar to the prior study. No pelvic lymphadenopathy or pelvic free fluid. The p rostate gland remains enlarged. There is mild bladder wall thickening. This remains unchanged. Subopt imal evaluation for bowel pathology due to the lack of intravenous and oral contrast. However, there is no definite bowel wall thickening or obstruction. Normal appendix. A few colonic diverticula. No e vidence for acute diverticulitis. There is moderate left perinephric edema and mild right perinephric edema. This has progressed on the left. Bilateral nonobstructing renal calculi are again noted. This is most pronounced on the left. There is mild urothelial thickening within the left renal collecting system and left ureter. No obstructing stones or hydronephrosis identified. Left peripelvic renal cy sts again noted. IMPRESSION: 1. Moderate left perinephric edema with urothelial thickening of the left renal collecting system and left ureter. This has progressed in the interval. No hydronephrosis. This could be due to a pyelonep hritis/pyelitis or a recently passed stone. Recommend correlation with urinalysis. 2. Bilateral nephrolithiasis. No ureteral stones identified. 3. Mild bladder wall thickening, unchanged. This may be due to chronic outlet obstruction from the en larged prostate gland. A cystitis could also have a similar appearance. 4. Cholelithiasis. No gallbladder wall thickening. 5. Hepatic steatosis with early changes of cirrhosis. This is similar to the prior study. 6. Colonic diverticulosis. No evidence for acute diverticulitis. 7. Abdominal aortic aneurysms measuring up to 4.3 cm, unchanged. ACT 112: Negative or not required by law. Electronically signed by: Naren Metcalf M.D. 07/28/2022 4:13 PM
[2022-07-28] MEDS: DOXYCYCLINE HYCLATE 100 MG in DEXTROSE 5% 100 ML IV SCH (18:52)
[2022-07-28] MEDS: SODIUM CHLORIDE 0.9% 1000ML 1,000 ML IV SCH (18:52)
[2022-07-28] MEDS: ACETAMINOPHEN 325 MG TAB PO PRN (19:12)
[2022-07-28] MEDS: amLODIPine BESYLATE 5 MG TAB PO SCH (20:44)
[2022-07-28] MEDS: guaiFENesin 600 MG TABCR PO SCH (20:45)
[2022-07-28] MEDS: TAMSULOSIN HCL 0.4 MG CAP PO SCH (20:45)
[2022-07-29] MEDS ORDERED: CEFEPIME 2,000 MG in SYRINGE 0 ML IV SCH
[2022-07-29] MEDS: ACETAMINOPHEN 325 MG TAB PO PRN ×3 (00:20→21:45)
[2022-07-29 04:28] LABS: A calco-baum cmplx NotReported Not Detected (NotDetected); Bact fragilis Not Reported Not Detected (NotDetected); C auris Not Reported Not Detected (NotDetected); Calbicans Not Reported Not Detected (NotDetected); Candida glabrata Not Reported Not Detected (NotDetected); Candida krusei Not Reported Not Detected (NotDetected); Cneoformans/gatti Not Reported Not Detected (NotDetected); Cparapsilosis Not Reported Not Detected (NotDetected); Ctropicalis Not Reported Not Detected (NotDetected); E cloacae compx Not Reported Not Detected (NotDetected); Efaecalis Not Reported DETECTED (NotDetected); Efaecium Not Reported Not Detected (NotDetected); Enterobacterales Not Reported Not Detected (NotDetected); Escherichia coli Not Reported Not Detected (NotDetected); H influenzae Not Reported Not Detected (NotDetected); K aerogenes Not Reported Not Detected (NotDetected); Koxytoca Not Reported Not Detected (NotDetected); Kpneumoniae grp Not Reported Not Detected (NotDetected); Lmonocyt Not Reported Not Detected (NotDetected); N meningitidis Not Reported Not Detected (NotDetected); P aeruginosa Not Reported Not Detected (NotDetected); Proteus spp Not Reported Not Detected (NotDetected); Salmonella spp Not Reported Not Detected (NotDetected); Smarcescens Not Reported Not Detected (NotDetected); Staph lugdunensis Not Reported Not Detected (NotDetected); Staph spp. Not Reported Not Detected (NotDetected); Staphaureus Not Reported Not Detected (NotDetected); Staphepi Not Reported Not Detected (NotDetected); Stenmaltophilia Not Reported Not Detected (NotDetected); Strep agal(GrpB) Not Reported Not Detected (NotDetected); Strep pneum Not Reported Not Detected (NotDetected); Strep pyog (GrpA) Not Reported Not Detected (NotDetected); Strep spp Not Reported Not Detected (NotDetected); VanAB Resistant Gene VRE Not Detected (NotDetected)
[2022-07-29] MEDS: DOXYCYCLINE HYCLATE 100 MG in DEXTROSE 5% 100 ML IV SCH (04:45)
[2022-07-29] MEDS: SODIUM CHLORIDE 0.9% 1000ML 1,000 ML IV SCH ×2 (04:52→14:59)
[2022-07-29 04:59] LABS: Enterococcus faecalis DETECTED (NotDetected)
[2022-07-29] MEDS ORDERED: VANCOMYCIN CONSULT ACTIVE PRN ×2 (05:04→07:35)
[2022-07-29] MEDS ORDERED: VANCOMYCIN HCL 1,000 MG in SODIUM CHLORIDE 0.9% 250 ML IV SCH (05:15)
[2022-07-29] MEDS ORDERED: VANCOMYCIN HCL 2,250 MG in SODIUM CHLORIDE 0.9% 500 ML IV SCH (05:30)
[2022-07-29 05:55] LABS: Hematocrit (blood only) 34.9 % (40.1-51.0); Hemoglobin 12.3 g/dl (14.0-18.0); Mean Corpuscular Hemoglobin 30.9 pg (25.0-34.0); Mean Corpuscular Hgb Conc 35.2 g/dL (32.0-36.0); Mean Corpuscular Volume 87.7 fL (80.0-100.0); Mean Platelet Volume 10.4 fL (9.4-12.4); Platelet Count 154 K/uL (130-400); RDW Coefficient of Variation 12.5 % (11.5-14.5); RDW Standard Deviation 40.1 fL (36.4-46.3); Red Blood Count 3.98 M/uL (4.63-6.08); White Blood Count 15.33 K/ul (4.8-10.8)
[2022-07-29 06:13] LABS: BUN Creatinine Ratio 15.8 (10-20); Calcium 8.5 mg/dl (8.5-10.1); Creatinine Clr Calc Pharmacy 49.7 ml/min; Est GFR (African American) 39.8 ml/min; Est GFR (Non-African American) 34.4 ml/min; Magnesium 1.3 mg/dl (1.7-2.4); Phosphorus 1.7 mg/dl (2.5-4.9); Potassium 3.2 mmol/L (3.5-5.1)
[2022-07-29] MEDS ORDERED: POTASSIUM PHOS 3 MMOL/1 ML INFUSION IV STA (06:22)
[2022-07-29] MEDS ORDERED: POTASSIUM CHLORIDE 20 MEQ/15 ML UDC PO STA (06:22)
[2022-07-29] MEDS ORDERED: POTASSIUM PHOSPHATE 24 MMOL in SODIUM CHLORIDE 0.9% 500 ML IV ONE (07:00)
[2022-07-29] MEDS ORDERED: VANCOMYCIN HCL 2,250 MG in SODIUM CHLORIDE 0.9% 500 ML IV ONE (07:35)
[2022-07-29] MEDS: MAGNESIUM SULFATE / D5W 1 GM/100 ML BAG IV SCH ×2 (08:43→10:55)
[2022-07-29] MEDS: ATORVASTATIN 40 MG TAB PO SCH (08:51)
[2022-07-29] MEDS: guaiFENesin 600 MG TABCR PO SCH ×2 (08:51→21:44)
[2022-07-29] MEDS: METOPROLOL SUCC 50MG EXT REL TAB PO SCH (08:52)
--- NOTE | 2022-07-29 09:28 | Urology Consultation ---
Date of Consultation July 29, 2022 Assessment & Plan (1) Sepsis: (2) Pyelonephritis: Plan Patient with suspected left pyelonephritis and signs of sepsis Based on the CT and overall appearance I do not believe he requires intervention right now Continue to monitor Creatinine improved overnight, anticipate further improvement with hydration Continue broad-spectrum antibiotics until pathogen is speciated and sensitivities determined We will continue to follow History of Present Illness Attending Physician: Darvin Cook MD History of Present Illness 61-year-old gentleman with recent ureter ureteroscopic procedure who now presents back with left flank pain, fevers, chills and signs of pyelonephritis CT reviewed and discussedperinephric stranding, minimal hydronephrosis, appearance consistent with Guido No obstructing stones Leukocytosis of 15,000 Creatinine today 2.0, 2.6 yesterday, baseline closer to 1.5 Allergies Allergy/AdvReac Type Severity Reaction Status Date / Time ASHLEY Inhibitors Allergy Severe ANGIOEDEMA-LOSARTAN Verified 07/28/22 17:09 POTASSIUM ARB-Angiotensin Receptor Allergy Severe ANGIOEDEMA-LOSARTAN Verified 07/28/22 17:09 Antagonist POTASSIUM Home Medications Medication Instructions Recorded Confirmed Type hydrochlorothiazide 25 mg tablet 25 mg PO QAM 03/30/20 07/28/22 History metoprolol succinate 100 mg 200 mg PO QAM 03/30/20 07/28/22 History tablet,extended release 24 hr (Toprol XL) amlodipine 5 mg tablet 5 mg PO HS 09/15/21 07/28/22 History atorvastatin 80 mg tablet 80 mg PO QAM 09/15/21 07/28/22 History cholecalciferol (vitamin D3) 50 50 mcg PO WK 12/07/21 07/28/22 History mcg (2,000 unit) capsule (Vitamin D3) coenzyme Q10 100 mg capsule 100 mg PO WK 12/07/21 07/28/22 History (CoQ-10) sildenafil (pulm.hypertension) 20 20 - 100 mg PO DIRECTED PRN 12/07/21 07/28/22 History mg tablet Erectile Dysfunction potassium chloride 20 mEq 20 meq PO DAILY #3 tabs 03/27/22 07/28/22 Rx tablet,extended release phenazopyridine 200 mg tablet 200 mg PO Q8H PRN pain #10 tabs 07/20/22 07/28/22 Rx (Pyridium) tamsulosin 0.4 mg capsule 0.4 mg PO HS #30 caps 07/20/22 07/28/22 Rx metformin 500 mg tablet 500 mg PO DAILYBD 07/28/22 07/28/22 History Patient History Medical History Aortic aneurysm An infrarenal abdominal aortic aneurysm measures 4.6 x 3.8 cm per 09/2021, stable x 10+ years per pt, under surveillance by [facility] vascular- per 12/2021 office visit, recommend f/u one year History of cardiac murmur as a child History of kidney stones HLD (hyperlipidemia) HTN (hypertension) Hx of fracture of rib 11/2021, from fall Prediabetes Sleep apnea CPAP Surgical History History of colonoscopy History of cystoscopy History of lithotripsy History of tooth extraction S/P ureteral stent placement Family History Father Hypertension Heart disease Other Cancer No family history of adverse response to anesthesia Social History Smoking Status: Never smoker Second Hand Exposure: No; Hx Alcohol Use: Yes Alcohol Intake Frequency: Monthly or Less Hx Substance Use: No Preferred Language: Argentine Communication Ability: Effective Visual Impairment: No Limitations Rooming House Inspector Required: No Beliefs That Will Affect Care: None Current Living Situation: Spouse Feels Safe at Home: Yes Assistive Devices: CPAP and Glasses Review of Systems Constitutional: + fever, + chills, + body aches and + fatigue Eyes: no worsening vision Ear, Nose, Mouth, Throat: no facial pain and no pain with swallowing Respiratory: no cough and no dyspnea Cardiovascular: no chest pain and no palpitations Gastrointestinal: + abdominal pain and + nausea; no vomiting Musculoskeletal: no back pain Integumentary: no rash and no urticaria Neurologic: no gait abnormality and no unsteadiness Psychiatric: no behavioral changes and no depression Endocrine: no fatigue Physical Exam Constitutional: well developed (Uncomfortable appearing) and well nourished Neck: neck nontender Respiratory: normal respiratory effort; no respiratory distress and does not use accessory muscles Cardiovascular: Rate/Rhythm: regular rate Vessels: radial pulses present Extremities: no edema Gastrointestinal (Abdomen): Inspection/Auscultation: abdomen normal to inspection Percussion/Palpation: abdomen soft (Moderately tender on the left flank); abdomen nontender and no guarding Musculoskeletal: Head/Neck/Chest: normocephalic and head atraumatic Extremities: extremities normal to inspection Skin: no rashes and no lesions Trauma: no evidence of skin trauma Neurologic: awake; not obtunded Speech / Cognition: normal speech Motor/Sensory: no tremor Psychiatric: Orientation: alert and oriented x 3 Genitourinary: no CVA tenderness Lymphatic: no lymphadenopathy Results & Data ([facility]) Vital Signs (Past 12 Hours) Vital Signs Temp Pulse Pulse Resp BP Pulse Ox O2 Del Method 07/29/22 07:33 37.8 C H 76 20 120/63 91 Room Air 07/29/22 03:39 38.1 C H 78 18 119/64 97 BiPAP 07/29/22 03:56 71 14 95 07/28/22 22:20 74 07/29/22 01:59 37.1 C 07/29/22 01:03 38.3 C H 07/29/22 00:30 39.8 C H 101 H 18 156/69 H 95 CPAP 07/28/22 23:15 99 H 25 H 95 O2 Flow Rate FiO2 07/29/22 07:33 07/29/22 03:39 07/29/22 03:56 0 21 07/28/22 22:20 07/29/22 01:59 07/29/22 01:03 07/29/22 00:30 07/28/22 23:15 0 21 PG Care Time/CCT Total # of Minutes Spent Total Time Spent with Patient: Total time spent is greater than 50% in coordination of care (as documented) at patient's floor/unit and/or counseling patient: Coding Level of Care Code 02385 Inpt Consult Level 4 Diagnoses Sepsis A41.9 Pyelonephritis N12
--- NOTE | 2022-07-29 12:35 | Hospitalist Progress Note ---
Date of Service July 29, 2022 Assessment & Plan (1) Sepsis: Plan: - Patient presents with sepsis, fever 39.2 Celsius, WBC 22,000, creatinine 2.7 - Procalcitonin also elevated at 23 - Urine culture, blood cultures - enterococcus - Recently had procedures with urology due to renal calculi, retained stent - CT abdomen pelvis obtained,possible pyelonephritis - s/p vancomycin and cefepime - given above speciation - deescalated to unasyn - improvement - will repeat blood cultures tomorrow 07/30/2022 to demonstrate clearance (2) Bacteremia: Plan: - Enterococcus on blood cultures - did have GPCs but thought to be contaminant - vancomycin discontinued - deescalated cefepime to Unasyn - monitor for continued improvement - repeat blood cultures 07/30/2022 (3) Pyelonephritis: Plan: - likely related to recent urologic procedure - urology consulted - no intervention - continue abx and IVF - no CVA tenderness this morning (4) Acute kidney injury superimposed on CKD: Plan: - likely in the setting of sepsis and pyelonephritis - improveing with IVF - will continue - trend Cr - avoid nephrotoxic medications (5) Hyponatremia: Plan: - likely due to poor po intake in the setting of sepsis - IVF as above - encourage po when tolerating - will monitor (6) Bilateral kidney stones: Plan: - noted on CT - no hydronephrosis or CVA tenderness this morning - urology following - noted (7) HLD (hyperlipidemia): Plan: - continue statin (8) HTN (hypertension): Plan: - on amlodipine, metoprolol, HCTZ at home - hold HCTZ due to DANITZA (9) Aortic aneurysm: Plan: - stable on CT (10) Sleep apnea: Plan: - continue CPAP Plan DVT ppx: heparin SC Code Status: Full Code Dispo: PCU/telemetry - downgrade to med/surg Darvin Cook MD Hospital Medicine Admission and Anticipated Discharge Date Admission Date: July 28, 2022 Subjective 61 year old man with pmh HLD, HTN, stable AAA, PEEWEE on CPAP, DM2, CK, h/o renal calculus and ureteral calculus s/p removal 07/22/2022 presented with fevers and sepsis likely due to pyelonephritis now with bacteremia. Started on broad spectrum abx, now deescalated to unasyn given speciation. Improving now with abx. Urology consulted, no intervention at this time. Patient feels much better, had rigors and chills overnight. Denies flank pain this morning, n/v/d, abdominal pain, chest pain, shortness of breath, cough, dysuria. Review of Systems Review of Systems: All systems reviewed & are unremarkable except as noted in Subjective Physical Exam Physical Exam: Constitutional:K WD/WN, vitals as a shaw (obese M in N AD) Eyes: PERRL, conjunctiva e normal, anicteri c sclerae ENMT: external ear and n ose normal, oropha rynx normal Neck: + thick neck Respiratory: normal respiratory effort, lungs nico ar to auscultation Cardiovascular:K RRR, no murmur, no edema Chest (Breasts): Chest: normal insp ection of chest Gastrointestinal ( Abdomen): normal bowel sound s, soft, nontender , no hepatosplenom egaly, no CVA tend erness Musculoskeletal: no cyanosis or clu bbing, extremities motor strength 5/ 5 Skin: no rashes, warm an d dry Neurologic: PERRL, EOMI, accom modation nl, no fa ce palsy, no dysar thria Psychiatric: A+Ox3, euthymic af fect Genitourinary: - CVA tenderness Lymphatic: no lymphedema Results & Data Results & Data ([facility]) Vital Signs (Past 12 Hours) Vital Signs Temp Pulse Pulse Resp BP Pulse Ox O2 Del Method 07/29/22 07:00 82 07/29/22 08:00 Room Air 07/29/22 07:33 37.8 C H 76 20 120/63 91 Room Air 07/29/22 03:39 38.1 C H 78 18 119/64 97 BiPAP 07/29/22 03:56 71 14 95 07/29/22 01:59 37.1 C 07/29/22 01:03 38.3 C H 07/29/22 00:30 39.8 C H 101 H 18 156/69 H 95 CPAP O2 Flow Rate FiO2 07/29/22 07:00 07/29/22 08:00 07/29/22 07:33 07/29/22 03:39 07/29/22 03:56 0 21 07/29/22 01:59 07/29/22 01:03 07/29/22 00:30 Diagnostic Findings Laboratory Results WBC 15.33 K/ul (4.8-10.8) H 07/29/22 05:32 RBC 3.98 M/uL (4.63-6.08) L 07/29/22 05:32 Hgb 12.3 g/dl (14.0-18.0) L 07/29/22 05:32 Hct 34.9 % (40.1-51.0) L 07/29/22 05:32 MCV 87.7 fL (80.0-100.0) 07/29/22 05:32 MCH 30.9 pg (25.0-34.0) 07/29/22 05:32 MCHC 35.2 g/dL (32.0-36.0) 07/29/22 05:32 RDW Std Deviation 40.1 fL (36.4-46.3) 07/29/22 05:32 RDW Coeff of Marcio 12.5 % (11.5-14.5) 07/29/22 05:32 Plt Count 154 K/uL (130-400) 07/29/22 05:32 MPV 10.4 fL (9.4-12.4) 07/29/22 05:32 Immature Gran % (Auto) 2.0 % 07/28/22 11:55 Neut % (Auto) 86.2 % 07/28/22 11:55 Lymph % (Auto) 3.6 % 07/28/22 11:55 [place] % (Auto) 7.2 % 07/28/22 11:55 Eos % (Auto) 0.8 % 07/28/22 11:55 Baso % (Auto) 0.2 % 07/28/22 11:55 Neut # (Auto) 19.14 K/uL (1.4-6.5) H 07/28/22 11:55 Lymph # (Auto) 0.80 K/uL (1.2-3.4) L 07/28/22 11:55 [place] # (Auto) 1.61 K/uL (0.24-0.82) H 07/28/22 11:55 Eos # (Auto) 0.18 K/uL (0-0.50) 07/28/22 11:55 Baso # (Auto) 0.05 K/uL (0-0.2) 07/28/22 11:55 Immature Gran # (Auto) 0.45 K/uL (0.00-0.02) H 07/28/22 11:55 Toxic Granulation 1+ 07/28/22 11:55 Toxic Vacuolation 1+ 07/28/22 11:55 Dohle Bodies 1+ 07/28/22 11:55 Sodium 133 mmol/L (136-145) L 07/29/22 05:32 Potassium 3.2 mmol/L (3.5-5.1) L 07/29/22 05:32 Chloride 99 mmol/L (98-107) 07/29/22 05:32 Carbon Dioxide 25 mmol/L (21-32) 07/29/22 05:32 Anion Gap 9 (3-11) 07/29/22 05:32 BUN 32 mg/dl (6-23) H 07/29/22 05:32 Creatinine 2.03 mg/dl (0.6-1.4) H D 07/29/22 05:32 Est Cr Clr Drug Dosing 49.7 ml/min 07/29/22 05:32 Est GFR ( Amer) 39.8 ml/min 07/29/22 05:32 Est GFR (Non-Af Amer) 34.4 ml/min 07/29/22 05:32 BUN/Creatinine Ratio 15.8 (10-20) 07/29/22 05:32 Glucose 157 mg/dl (70-99(Fasting)) H 07/29/22 05:32 Lactate 1.6 mmol/L (0.4-2.0) 07/28/22 12:58 Calcium 8.5 mg/dl (8.5-10.1) 07/29/22 05:32 Phosphorus 1.7 mg/dl (2.5-4.9) L 07/29/22 05:32 Magnesium 1.3 mg/dl (1.7-2.4) L 07/29/22 05:32 Total Bilirubin 2.0 mg/dl (0.2-1.0) H 07/28/22 11:55 AST 16 U/L (13-39) 07/28/22 11:55 ALT 18 U/L (7-52) 07/28/22 11:55 Alkaline Phosphatase 62 U/L (34-104) 07/28/22 11:55 Troponin I High Sens 57.3 pg/ml (0-20) H* 07/28/22 11:55 Total Protein 7.1 gm/dl (6.0-8.3) 07/28/22 11:55 Albumin 3.8 gm/dl (3.4-5.0) 07/28/22 11:55 Globulin 3.3 gm/dl (2.5-4.0) 07/28/22 11:55 Albumin/Globulin Ratio 1.2 (0.9-2) 07/28/22 11:55 Procalcitonin 23.17 ng/ml (0-0.5) H 07/28/22 12:50 Urine Color Dark Yellow 07/28/22 13:06 Urine Appearance Cloudy (Clear) A 07/28/22 13:06 Urine pH 5.0 (4.5-7.5) 07/28/22 13:06 Ur Specific [place] 1.022 (1.000-1.030) 07/28/22 13:06 Urine Protein 2+ (Negative) H 07/28/22 13:06 Urine Glucose (UA) Negative (Negative) 07/28/22 13:06 Urine Ketones Negative (Negative) 07/28/22 13:06 Urine Blood 3+ (Negative) H 07/28/22 13:06 Urine Nitrite Negative (Negative) 07/28/22 13:06 Urine Bilirubin Negative (Negative) 07/28/22 13:06 Urine Urobilinogen Negative (Negative) 07/28/22 13:06 Ur Leukocyte Esterase Trace (Negative) H 07/28/22 13:06 Urine WBC (Auto) 10-30 /hpf (0-5) H 07/28/22 13:06 Urine RBC (Auto) 10-30 /hpf (0-4) H 07/28/22 13:06 U Hyaline Cast (Auto) 1-5 /lpf (0-5) 07/28/22 13:06 U Epithel Cells (Auto) 20-30 /lpf (0-5) H 07/28/22 13:06 Urine Bacteria (Auto) Negative (Negative) 07/28/22 13:06 Granular Casts 1-5 /lpf (0) H 07/28/22 13:06 Urine Yeast Not Reportable 07/28/22 13:06 Enterococc faecalis PCR DETECTED (NotDetected) A 07/28/22 12:50 SARS-CoV-2, RNA, NAAT NEGATIVE (NEGATIVE) 07/28/22 11:55 Booker/B-Vanco Res Genes VRE Not Detected (NotDetected) 07/28/22 12:50 Bld Cult ID Panel PCR See PCR Comment (NotDetected) 07/28/22 12:50 Impressions Chest X-Ray 07/28/22 12:25 XR chest 1V portable HISTORY: fever COMPARISON: Chest and left rib series 11/18/2021. FINDINGS: No pneumothorax. No pleural effusions. Left lateral basilar pleural thickening remains unchanged. The heart is normal in size. Patchy hazy airspace opacities within the left lower lobe which are new from the prior study. This consistent with a developing pneumonia. Healing left posterior seventh and eighth rib fractures are noted. IMPRESSION: Hazy patchy airspace opacities within the left lung base which are new from the prior study and likely represent a developing pneumonia. ACT 112: Negative or not required by law. Electronically signed by: Naren Metcalf M.D. 07/28/2022 12:38 PM Abdomen/Pelvis CT 07/28/22 15:[address] WITHOUT CONTRAST CT DOSE: 1235.51 mGy.cm HISTORY: Lower pelvic pain. TECHNIQUE: Multiaxial CT images of the abdomen and pelvis were performed without contrast. A dose lowering technique was utilized adhering to the principles of ALARA. COMPARISON STUDY: Abdomen and pelvis CT 10/13/2021. FINDINGS: A stable 3 mm nodule within the left lower lobe on image 21. Mild dependent changes seen within the left lung base. The there are old left posterior rib fractures. Cholelithiasis. No gallbladder wall thickening. Hepatic steatosis with a subtle nodular contour to the liver consistent with mild cirrhosis. This remains unchanged. The unenhanced pancreas, spleen, and adrenal glands are unremarkable. There is a 3.7 cm suprarenal abdominal aortic aneurysm and a 4.3 cm infrarenal abdominal aortic aneurysm. These are similar to the prior study. No pelvic lymphadenopathy or pelvic free fluid. The prostate gland remains enlarged. There is mild bladder wall thickening. This remains unchanged. Suboptimal evaluation for bowel pathology due to the lack of intravenous and oral contrast. However, there is no definite bowel wall thickening or obstruction. Normal appendix. A few colonic diverticula. No evidence for acute diverticulitis. There is moderate left perinephric edema and mild right perinephric edema. This has progressed on the left. Bilateral nonobstructing renal calculi are again noted. This is most pronounced on the left. There is mild urothelial thickening within the left renal collecting system and left ureter. No obstructing stones or hydronephrosis identified. Left peripelvic renal cysts again noted. IMPRESSION: 1. Moderate left perinephric edema with urothelial thickening of the left renal collecting system and left ureter. This has progressed in the interval. No hydronephrosis. This could be due to a pyelonephritis/pyelitis or a recently passed stone. Recommend correlation with urinalysis. 2. Bilateral nephrolithiasis. No ureteral stones identified. 3. Mild bladder wall thickening, unchanged. This may be due to chronic outlet obstruction from the enlarged prostate gland. A cystitis could also have a similar appearance. 4. Cholelithiasis. No gallbladder wall thickening. 5. Hepatic steatosis with early changes of cirrhosis. This is similar to the prior study. 6. Colonic diverticulosis. No evidence for acute diverticulitis. 7. Abdominal aortic aneurysms measuring up to 4.3 cm, unchanged. ACT 112: Negative or not required by law. Electronically signed by: Naren Metcalf M.D. 07/28/2022 4:13 PM Medications Administered Current Inpatient Medications Acetaminophen (Acetaminophen 325 Mg Tab) 650 mg PO Q4H PRN PRN Reason: Pain or Fever Stop: 08/27/22 15:47 Last Admin: 07/29/22 05:29 Dose: 650 mg Amlodipine Besylate (Amlodipine Besylate 5 Mg Tab) 5 mg PO HS ADILENE Stop: 08/27/22 20:59 Last Admin: 07/28/22 20:44 Dose: 5 mg Atorvastatin Calcium (Atorvastatin 40 Mg Tab) 80 mg PO QAM ADILENE Stop: 08/28/22 08:59 Last Admin: 07/29/22 08:51 Dose: 80 mg Guaifenesin (Guaifenesin 600 Mg Tabcr) 600 mg PO Q12 ADILENE Stop: 08/27/22 20:59 Last Admin: 07/29/22 08:51 Dose: 600 mg Doxycycline Hyclate 100 mg/ (Dextrose) 110 mls @ 50 mls/hr IV Q12H ADILENE Stop: 08/04/22 16:29 Last Infusion: 07/29/22 06:57 Dose: Infused Sodium Chloride (Nss 1000ml) 1,000 mls @ 100 mls/hr IV .Q10H ADILENE Stop: 08/27/22 16:59 Last Admin: 07/29/22 04:52 Dose: 100 mls/hr Ampicillin Sodium/Sulbactam Sodium 3,000 mg/ Sodium Chloride 108 mls @ 216 mls/hr IV Q6H ADILENE Stop: 08/12/22 10:59 Metoprolol Succinate (Metoprolol Succ 50mg Ext Rel Tab) 200 mg PO QAM ADILENE Stop: 08/28/22 08:59 Last Admin: 07/29/22 08:52 Dose: 200 mg Tamsulosin HCl (Tamsulosin Hcl 0.4 Mg Cap) 0.4 mg PO HS ADILENE Stop: 08/27/22 20:59 Last Admin: 07/28/22 20:45 Dose: 0.4 mg
[2022-07-29] MEDS: AMPICILLIN/SULBACTAM SOD 3,000 MG in 0.9 % SODIUM CHLORIDE 100 ML IV SCH ×2 (13:26→17:54)
[2022-07-29] MEDS ORDERED: HEPARIN SOD 5,000 UNIT/0.5 ML VIAL SQ SCH (14:00)
[2022-07-29] MEDS: amLODIPine BESYLATE 5 MG TAB PO SCH (21:44)
[2022-07-29] MEDS: TAMSULOSIN HCL 0.4 MG CAP PO SCH (21:44)
[2022-07-30] MEDS: SODIUM CHLORIDE 0.9% 1000ML 1,000 ML IV SCH (02:44)
[2022-07-30] MEDS: AMPICILLIN/SULBACTAM SOD 3,000 MG in 0.9 % SODIUM CHLORIDE 100 ML IV SCH ×2 (05:14)
[2022-07-30] MEDS: ACETAMINOPHEN 325 MG TAB PO PRN (05:19)
--- NOTE | 2022-07-30 08:08 | Electrocardiogram Report ---
Test Reason : Blood Pressure : / mmHG Vent. Rate : 102 BPM Atrial Rate : 107 BPM P-R Int : 000 ms QRS Dur : 102 ms QT Int : 302 ms P-R-T Axes : 000 -07 -33 degrees QTc Int : 393 ms Atrial fibrillation with rapid ventricular response Possible Old Inferior infarct Minor Nonspecific T wave abnormality Lateral leads Abnormal ECG When compared with ECG of 28-JUL-2022 11:56, Atrial fibrillation has replaced Sinus rhythm Borderline Criteria for Inferior infarct now present Confirmed by Kendall Bullock ([id number]) on 07/30/2022 8:08:14 AM Referred By: REFERRED SELF Confirmed By:Kendall Bullock
--- NOTE | 2022-07-30 08:15 | Urology Progress Note ---
Date of Service July 30, 2022 Assessment & Plan (1) Pyelonephritis: (2) Sepsis: Plan 61yo M s/p recent urological procedure admitted with sepsis/pyelonephritis - Subjectively feeling much better today. - Afebrile at present and hemodynamically stable (Tmax 38.2 on 07/29/22 @1936). - Labs reviewed - Leukocytosis improved to 11.64 today, Creatinine down to 1.39 - UC&S prelim probably enterococcus, BCx prelim gram positive cocci, repeat pending. - On IV Ampicillin now, continue to follow cultures. - No acute intervention warranted. - Continue supportive care and antibiotic therapy. - Recommend extended course of PO antibiotics upon discharge per final culture (likely 10-14 days total). - Plan to f/u with urology outpatient as scheduled 08/31/22. - Urology will follow peripherally. Please contact us with any further questions, concerns, or changes in patient status. Admission and Anticipated Discharge Date Admission Date: July 28, 2022 Subjective Pt examined at bedside this AM. Awake, sitting up in bed on arrival. Reports feeling significantly better today. Denies any pain or discomfort at present. No fevers or chills. Tolerating diet, no nausea or vomiting. Voiding without issue. Denies hematuria or dysuria. Feels he is emptying his bladder well. Eager to go home. Converted to afib on tele overnight, cardiology consulted. Review of Systems Constitutional: as per Subjective / HPI Cardiovascular: as per Subjective / HPI Gastrointestinal: as per Subjective / HPI Genitourinary: + as per Subjective / HPI Physical Exam Constitutional: no acute distress Respiratory: no respiratory distress and no labored breathing Musculoskeletal: Head/Neck/Chest: normocephalic Neurologic: awake Psychiatric: A+Ox3, euthymic affect Results & Data ([facility]) Vital Signs (Past 12 Hours) Vital Signs Temp Pulse Pulse Resp BP Pulse Ox O2 Del Method 07/30/22 07:38 37.1 C 82 17 144/78 H 95 Room Air 07/30/22 03:32 36.6 C 92 H 18 138/71 97 CPAP 07/30/22 03:29 95 H 17 94 07/30/22 00:40 97 H 122/70 07/29/22 22:32 74 07/29/22 23:03 37.4 C 71 18 125/68 91 Room Air FiO2 07/30/22 07:38 07/30/22 03:32 07/30/22 03:29 21 07/30/22 00:40 07/29/22 22:32 07/29/22 23:03 PG Care Time/CCT Total # of Minutes Spent Total Time Spent with Patient: Total time spent is greater than 50% in coordination of care (as documented) at patient's floor/unit and/or counseling patient: Coding Level of Care Code 93642 Subseq Hosp Care Lvl 2 Diagnoses Pyelonephritis N12 Sepsis A41.9
[2022-07-30 09:10] LABS: Basophils # (auto) 0.05 K/uL (0-0.2); Basophils % (auto) 0.4 %; Eosinophils # (auto) 0.08 K/uL (0-0.50); Eosinophils % (auto) 0.7 %; Hematocrit (blood only) 35.3 % (40.1-51.0); Hemoglobin 12.6 g/dl (14.0-18.0); Immature Granulocytes # (auto) 0.04 K/uL (0.00-0.02); Immature Granulocytes % (auto) 0.3 %; Lymphocytes % (auto) 8.6 %; Mean Corpuscular Hgb Conc 35.7 g/dL (32.0-36.0); Mean Corpuscular Volume 86.7 fL (80.0-100.0); Mean Platelet Volume 10.5 fL (9.4-12.4); Monocytes # (auto) 1.14 K/uL (0.24-0.82); Monocytes % (auto) 9.8 %; Neutrophils # (auto) 9.33 K/uL (1.4-6.5); Neutrophils % (auto) 80.2 %; Platelet Count 163 K/uL (130-400); RDW Coefficient of Variation 12.6 % (11.5-14.5); RDW Standard Deviation 39.8 fL (36.4-46.3); Red Blood Count 4.07 M/uL (4.63-6.08); White Blood Count 11.64 K/ul (4.8-10.8)
[2022-07-30] MEDS: guaiFENesin 600 MG TABCR PO SCH ×2 (09:15→20:46)
[2022-07-30] MEDS: METOPROLOL SUCC 50MG EXT REL TAB PO SCH (09:15)
[2022-07-30] MEDS: ATORVASTATIN 40 MG TAB PO SCH (09:15)
[2022-07-30 09:32] LABS: BUN Creatinine Ratio 15.1 (10-20); Calcium 8.2 mg/dl (8.5-10.1); Creatinine Clr Calc Pharmacy 72.8 ml/min; Est GFR (African American) 62.9 ml/min; Est GFR (Non-African American) 54.3 ml/min; Potassium 3.3 mmol/L (3.5-5.1)
[2022-07-30 09:38] LABS: Albumin Level 3.2 gm/dl (3.4-5.0); Bilirubin,Total 1.6 mg/dl (0.2-1.0); Globulin 3.2 gm/dl (2.5-4.0); Magnesium 1.8 mg/dl (1.7-2.4); Phosphorus 1.3 mg/dl (2.5-4.9); Total Protein 6.4 gm/dl (6.0-8.3); Troponin I High Sensitivity 46.2 pg/ml (0-20)
[2022-07-30] MEDS ORDERED: MAGNESIUM SULFATE / D5W 1 GM/100 ML BAG IV ONE (09:41)
[2022-07-30] MEDS ORDERED: POTASSIUM CHLORIDE CRTAB 20 MEQ TABCR PO STA (09:41)
[2022-07-30] MEDS ORDERED: Heparin IV Adult Wt-Based Standard WITH Bolus Protocol IV SCH (09:50)
--- NOTE | 2022-07-30 09:53 | Cardiology Consultation ---
Date of Consultation July 30, 2022 Assessment & Plan (1) Paroxysmal atrial fibrillation: (2) Sepsis: (3) HTN (hypertension): (4) AAA (abdominal aortic aneurysm) without rupture: (5) Hypomagnesemia: (6) Hypokalemia: (7) Hyponatremia: Plan 61-year-old male developed paroxysmal atrial fibrillation overnight in the setting of sepsis, fever, electrolyte derangement. Remains in atrial fibrillation with controlled ventricular response currently. Essentially asymptomatic. Electrolyte replacement with oral potassium and IV magnesium. Continue Toprol-XL 200 mg daily. Add intravenous heparin although recommendations regarding possible long-term anticoagulation pending. A. fib occurring in setting of potentially reversible causes. Preliminary review of bedside 2D transthoracic echocardiogram demonstrates preserved LV systolic function without significant valvular pathology. Full report to follow. Continue telemetry monitoring. Repeat lab studies in a.m. Thank you for allow me to participate in the care of your patient. History of Present Illness Reason for Consultation: Paroxysmal atrial fibrillation. Requesting Physician: Dr. Rosenthal Attending Physician: Darvin Cook MD History of Present Illness 61-year-old male admitted with urosepsis. Blood cultures growing gram-positive cocci. Recent history of urologic stent removal approximately 1 week ago. This was followed by urologic surgery to remove a retained kidney stone. A pproximately 5 days later patient developed fever, chills and returned to the hospital. Febrile until last night. Treated with IV antibiotics. Today he is feeling much better, although, developed atrial fibrillation with controlled ventricular response at approximately 11:30 PM. Unaware of his heart rate. Denies chest pain or palpitations. No history of atrial fibrillation, myocardial infarction, or congestive heart failure. Risk factors include diabetes, hypertension, and abdominal aortic aneurysm. Allergies Allergy/AdvReac Type Severity Reaction Status Date / Time ASHLEY Inhibitors Allergy Severe ANGIOEDEMA-LOSARTAN Verified 07/28/22 17:09 POTASSIUM ARB-Angiotensin Receptor Allergy Severe ANGIOEDEMA-LOSARTAN Verified 07/28/22 17:09 Antagonist POTASSIUM Home Medications Medication Instructions Recorded Confirmed Type hydrochlorothiazide 25 mg tablet 25 mg PO QAM 03/30/20 07/28/22 History metoprolol succinate 100 mg 200 mg PO QAM 03/30/20 07/28/22 History tablet,extended release 24 hr (Toprol XL) amlodipine 5 mg tablet 5 mg PO HS 09/15/21 07/28/22 History atorvastatin 80 mg tablet 80 mg PO QAM 09/15/21 07/28/22 History cholecalciferol (vitamin D3) 50 50 mcg PO WK 12/07/21 07/28/22 History mcg (2,000 unit) capsule (Vitamin D3) coenzyme Q10 100 mg capsule 100 mg PO WK 12/07/21 07/28/22 History (CoQ-10) sildenafil (pulm.hypertension) 20 20 - 100 mg PO DIRECTED PRN 12/07/21 07/28/22 History mg tablet Erectile Dysfunction potassium chloride 20 mEq 20 meq PO DAILY #3 tabs 03/27/22 07/28/22 Rx tablet,extended release phenazopyridine 200 mg tablet 200 mg PO Q8H PRN pain #10 tabs 07/20/22 07/28/22 Rx (Pyridium) tamsulosin 0.4 mg capsule 0.4 mg PO HS #30 caps 07/20/22 07/28/22 Rx metformin 500 mg tablet 500 mg PO DAILYBD 07/28/22 07/28/22 History Patient History Medical History (Updated 07/30/22 @ 11:32 by Darvin Cook MD) Aortic aneurysm An infrarenal abdominal aortic aneurysm measures 4.6 x 3.8 cm per 09/2021, stable x 10+ years per pt, under surveillance by [facility] vascular- per 12/2021 office visit, recommend f/u one year History of cardiac murmur as a child History of kidney stones HLD (hyperlipidemia) HTN (hypertension) Hx of fracture of rib 11/2021, from fall Prediabetes Sleep apnea CPAP Surgical History History of colonoscopy History of cystoscopy History of lithotripsy History of tooth extraction S/P ureteral stent placement Family History Father Hypertension Heart disease Other Cancer No family history of adverse response to anesthesia Social History Smoking Status: Never smoker Second Hand Exposure: No; Hx Alcohol Use: Yes Alcohol Intake Frequency: Monthly or Less Hx Substance Use: No Preferred Language: Montserratian Communication Ability: Effective Visual Impairment: No Limitations Frog Or O[employer] Required: No Beliefs That Will Affect Care: None Current Living Situation: Spouse Feels Safe at Home: Yes Assistive Devices: None Review of Systems Review of Systems: All systems reviewed & are unremarkable except as noted in Subjective Physical Exam Constitutional: well nourished; no acute distress Respiratory: no respiratory distress, no labored breathing and no retractions Auscultation: no crackles, no rales, no rhonchi and no wheezes Cardiovascular: Rate/Rhythm: + irregularly irregular Heart Sounds: normal S1 and normal S2; no murmur Vessels: radial pulses present; no JVD and no carotid bruit Extremities: no edema Gastrointestinal (Abdomen): Inspection/Auscultation: abdomen normal to inspection and normal bowel sounds; abdomen not distended Percussion/Palpation: abdomen soft; abdomen nontender, no guarding and abdomen not rigid Neurologic: CN's II-XI intact bilaterally and moves all extremities; no focal motor deficits Motor/Sensory: no tremor Psychiatric: A+Ox3, euthymic affect Results & Data ([facility]) Vital Signs (Past 12 Hours) Vital Signs Temp Pulse Pulse Resp BP Pulse Ox O2 Del Method 07/30/22 07:38 37.1 C 82 17 144/78 H 95 Room Air 07/30/22 03:32 36.6 C 92 H 18 138/71 97 CPAP 07/30/22 03:29 95 H 17 94 07/30/22 00:40 97 H 122/70 07/29/22 22:32 74 07/29/22 23:03 37.4 C 71 18 125/68 91 Room Air FiO2 07/30/22 07:38 07/30/22 03:32 07/30/22 03:29 21 07/30/22 00:40 07/29/22 22:32 07/29/22 23:03
[2022-07-30] MEDS ORDERED: HEPARIN SOD (PORCINE) 1000 UNIT/ML IV ONE (10:55)
[2022-07-30] MEDS: AMPICILLIN 2,000 MG in SODIUM CHLOR 0.9% AD-VAN 100 ML IV SCH ×4 (11:11→23:44)
[2022-07-30] MEDS ORDERED: POTASSIUM PHOS 3 MMOL/1 ML INFUSION IV STA (11:27)
--- NOTE | 2022-07-30 11:34 | Hospitalist Progress Note ---
Date of Service July 30, 2022 Assessment & Plan (1) Sepsis: Plan: - Patient presents with sepsis, fever 39.2 Celsius, WBC 22,000, creatinine 2.7 - Procalcitonin also elevated at 23 - Urine culture, blood cultures - enterococcus - Recently had procedures with urology due to renal calculi, retained stent - CT abdomen pelvis obtained,possible pyelonephritis - s/p vancomycin and cefepime - given above speciation - deescalated to unasyn - improvement - repeat blood cultures tomorrow 07/30/2022 to demonstrate clearance (2) Bacteremia: Plan: - Enterococcus on blood cultures - did have GPCs but thought to be contaminant - vancomycin discontinued - deescalated cefepime to Unasyn --> ampicillin - monitor for continued improvement - repeat blood cultures 07/30/2022 - if blood cultures negative after 48 hours - discharge home to complete 2 weeks of abx with amoxicillin (3) New onset a-fib: Plan: - converted to afib on telemetry overnight 07/29-07/30/2022 - asymptomatic - seen by cardiology - heparin drip started - TTE unremarkable - electrolytes repleted - follow up further recs (4) Pyelonephritis: Plan: - likely related to recent urologic procedure - urology consulted - no intervention - continue abx and IVF - no CVA tenderness this morning - resolved - see above for further abx management (5) Acute kidney injury superimposed on CKD: Plan: - likely in the setting of sepsis and pyelonephritis - improved s/p IVF - trend Cr - close to baseline - avoid nephrotoxic medications (6) Hyponatremia: Plan: - likely due to poor po intake in the setting of sepsis - IVF as above - encourage po when tolerating - will monitor (7) Bilateral kidney stones: Plan: - noted on CT - no hydronephrosis or CVA tenderness this morning - urology following - noted (8) HLD (hyperlipidemia): Plan: - continue statin (9) HTN (hypertension): Plan: - on amlodipine, metoprolol, HCTZ at home - hold HCTZ due to DANITZA (10) Aortic aneurysm: Plan: - stable on CT (11) Sleep apnea: Plan: - continue CPAP Plan DVT ppx: heparin SC Code Status: Full Code Dispo: PCU/telemetry - downgrade to med/surg Darvin Cook MD Hospital Medicine Admission and Anticipated Discharge Date Admission Date: July 28, 2022 Subjective 61 year old man with pmh HLD, HTN, stable AAA, PEEWEE on CPAP, DM2, CK, h/o renal calculus and ureteral calculus s/p removal 07/22/2022 presented with fevers and sepsis likely due to pyelonephritis now with bacteremia. Started on broad spectrum abx, now deescalated to unasyn given speciation. Improving now with abx. Urology consulted, no intervention at this time. Converted to afib overnight 07/30/2022, seen by cardiology, heparin drip started, TTE unremarkable. Patient feels much better today, sitting up, eating, asking to go home. Denies flank pain this morning, n/v/d, abdominal pain, chest pain, shortness of breath, cough, dysuria. Review of Systems Review of Systems: All systems reviewed & are unremarkable except as noted in Subjective Physical Exam Physical Exam: Constitutional:K WD/WN, vitals as a shaw (obese M in N AD) Eyes: PERRL, conjunctiva e normal, anicteri c sclerae ENMT: external ear and n ose normal, oropha rynx normal Neck: + thick neck Respiratory: normal respiratory effort, lungs nico ar to auscultation Cardiovascular:K RRR, no murmur, no edema Chest (Breasts): Chest: normal insp ection of chest Gastrointestinal ( Abdomen): normal bowel sound s, soft, nontender , no hepatosplenom egaly, no CVA tend erness Musculoskeletal: no cyanosis or clu bbing, extremities motor strength 5/ 5 Skin: no rashes, warm an d dry Neurologic: PERRL, EOMI, accom modation nl, no fa ce palsy, no dysar thria Psychiatric: A+Ox3, euthymic af fect Genitourinary: - CVA tenderness Lymphatic: no lymphedema Results & Data Results & Data ([facility]) Vital Signs (Past 12 Hours) Vital Signs Temp Pulse Pulse Resp BP Pulse Ox O2 Del Method 07/30/22 07:38 37.1 C 82 17 144/78 H 95 Room Air 07/30/22 03:32 36.6 C 92 H 18 138/71 97 CPAP 07/30/22 03:29 95 H 17 94 07/30/22 00:40 97 H 122/70 FiO2 07/30/22 07:38 07/30/22 03:32 07/30/22 03:29 21 07/30/22 00:40 Diagnostic Findings Laboratory Results WBC 11.64 K/ul (4.8-10.8) H 07/30/22 08:57 RBC 4.07 M/uL (4.63-6.08) L 07/30/22 08:57 Hgb 12.6 g/dl (14.0-18.0) L 07/30/22 08:57 Hct 35.3 % (40.1-51.0) L 07/30/22 08:57 MCV 86.7 fL (80.0-100.0) 07/30/22 08:57 MCH 31.0 pg (25.0-34.0) 07/30/22 08:57 MCHC 35.7 g/dL (32.0-36.0) 07/30/22 08:57 RDW Std Deviation 39.8 fL (36.4-46.3) 07/30/22 08:57 RDW Coeff of Marcio 12.6 % (11.5-14.5) 07/30/22 08:57 Plt Count 163 K/uL (130-400) 07/30/22 08:57 MPV 10.5 fL (9.4-12.4) 07/30/22 08:57 Immature Gran % (Auto) 0.3 % 07/30/22 08:57 Neut % (Auto) 80.2 % 07/30/22 08:57 Lymph % (Auto) 8.6 % 07/30/22 08:57 Wolfe % (Auto) 9.8 % 07/30/22 08:57 Eos % (Auto) 0.7 % 07/30/22 08:57 Baso % (Auto) 0.4 % 07/30/22 08:57 Neut # (Auto) 9.33 K/uL (1.4-6.5) H 07/30/22 08:57 Lymph # (Auto) 1.00 K/uL (1.2-3.4) L 07/30/22 08:57 Wolfe # (Auto) 1.14 K/uL (0.24-0.82) H 07/30/22 08:57 Eos # (Auto) 0.08 K/uL (0-0.50) 07/30/22 08:57 Baso # (Auto) 0.05 K/uL (0-0.2) 07/30/22 08:57 Immature Gran # (Auto) 0.04 K/uL (0.00-0.02) H 07/30/22 08:57 Toxic Granulation 1+ 07/28/22 11:55 Toxic Vacuolation 1+ 07/28/22 11:55 Dohle Bodies 1+ 07/28/22 11:55 Sodium 135 mmol/L (136-145) L 07/30/22 08:57 Potassium 3.3 mmol/L (3.5-5.1) L 07/30/22 08:57 Chloride 102 mmol/L (98-107) 07/30/22 08:57 Carbon Dioxide 25 mmol/L (21-32) 07/30/22 08:57 Anion Gap 8 (3-11) 07/30/22 08:57 BUN 21 mg/dl (6-23) 07/30/22 08:57 Creatinine 1.39 mg/dl (0.6-1.4) D 07/30/22 08:57 Est Cr Clr Drug Dosing 72.8 ml/min 07/30/22 08:57 Est GFR ( Amer) 62.9 ml/min 07/30/22 08:57 Est GFR (Non-Af Amer) 54.3 ml/min 07/30/22 08:57 BUN/Creatinine Ratio 15.1 (10-20) 07/30/22 08:57 Glucose 147 mg/dl (70-99(Fasting)) H 07/30/22 08:57 Lactate 1.6 mmol/L (0.4-2.0) 07/28/22 12:58 Calcium 8.2 mg/dl (8.5-10.1) L 07/30/22 08:57 Phosphorus 1.3 mg/dl (2.5-4.9) L* 07/30/22 08:57 Magnesium 1.8 mg/dl (1.7-2.4) 07/30/22 08:57 Total Bilirubin 1.6 mg/dl (0.2-1.0) H 07/30/22 08:57 AST 40 U/L (13-39) H 07/30/22 08:57 ALT 33 U/L (7-52) 07/30/22 08:57 Alkaline Phosphatase 75 U/L (34-104) 07/30/22 08:57 Troponin I High Sens 46.2 pg/ml (0-20) H D 07/30/22 08:57 Total Protein 6.4 gm/dl (6.0-8.3) 07/30/22 08:57 Albumin 3.2 gm/dl (3.4-5.0) L 07/30/22 08:57 Globulin 3.2 gm/dl (2.5-4.0) 07/30/22 08:57 Albumin/Globulin Ratio 1.0 (0.9-2) 07/30/22 08:57 Procalcitonin 23.17 ng/ml (0-0.5) H 07/28/22 12:50 TSH 1.379 uIu/ml (0.300-4.500) 07/30/22 08:57 Urine Color Dark Yellow 07/28/22 13:06 Urine Appearance Cloudy (Clear) A 07/28/22 13:06 Urine pH 5.0 (4.5-7.5) 07/28/22 13:06 Ur Specific Woodlyn 1.022 (1.000-1.030) 07/28/22 13:06 Urine Protein 2+ (Negative) H 07/28/22 13:06 Urine Glucose (UA) Negative (Negative) 07/28/22 13:06 Urine Ketones Negative (Negative) 07/28/22 13:06 Urine Blood 3+ (Negative) H 07/28/22 13:06 Urine Nitrite Negative (Negative) 07/28/22 13:06 Urine Bilirubin Negative (Negative) 07/28/22 13:06 Urine Urobilinogen Negative (Negative) 07/28/22 13:06 Ur Leukocyte Esterase Trace (Negative) H 07/28/22 13:06 Urine WBC (Auto) 10-30 /hpf (0-5) H 07/28/22 13:06 Urine RBC (Auto) 10-30 /hpf (0-4) H 07/28/22 13:06 U Hyaline Cast (Auto) 1-5 /lpf (0-5) 07/28/22 13:06 U Epithel Cells (Auto) 20-30 /lpf (0-5) H 07/28/22 13:06 Urine Bacteria (Auto) Negative (Negative) 07/28/22 13:06 Granular Casts 1-5 /lpf (0) H 07/28/22 13:06 Urine Yeast Not Reportable 07/28/22 13:06 Enterococc faecalis PCR DETECTED (NotDetected) A 07/28/22 12:50 SARS-CoV-2, RNA, NAAT NEGATIVE (NEGATIVE) 07/28/22 11:55 Booker/B-Vanco Res Genes VRE Not Detected (NotDetected) 07/28/22 12:50 Bld Cult ID Panel PCR See PCR Comment (NotDetected) 07/28/22 12:50 Impressions Chest X-Ray 07/28/22 12:25 XR chest 1V portable HISTORY: fever COMPARISON: Chest and left rib series 11/18/2021. FINDINGS: No pneumothorax. No pleural effusions. Left lateral basilar pleural thickening remains unchanged. The heart is normal in size. Patchy hazy airspace opacities within the left lower lobe which are new from the prior study. This consistent with a developing pneumonia. Healing left posterior seventh and eighth rib fractures are noted. IMPRESSION: Hazy patchy airspace opacities within the left lung base which are new from the prior study and likely represent a developing pneumonia. ACT 112: Negative or not required by law. Electronically signed by: Naren Metcalf M.D. 07/28/2022 12:38 PM Abdomen/Pelvis CT 07/28/22 15:[address] WITHOUT CONTRAST CT DOSE: 1235.51 mGy.cm HISTORY: Lower pelvic pain. TECHNIQUE: Multiaxial CT images of the abdomen and pelvis were performed without contrast. A dose lowering technique was utilized adhering to the principles of ALARA. COMPARISON STUDY: Abdomen and pelvis CT 10/13/2021. FINDINGS: A stable 3 mm nodule within the left lower lobe on image 21. Mild dependent changes seen within the left lung base. The there are old left post erior rib fractures. Cholelithiasis. No gallbladder wall thickening. Hepatic steatosis with a subtle nodular contour to the liver consistent with mild cirrhosis. This remains unchanged. The unenhanced pancreas, spleen, and adrenal glands are unremarkable. There is a 3.7 cm suprarenal abdominal aortic aneurysm and a 4.3 cm infrarenal abdominal aortic aneurysm. These are similar to the prior study. No pelvic lymphadenopathy or pelvic free fluid. The prostate gland remains enlarged. There is mild bladder wall thickening. This remains unchanged. Suboptimal evaluation for bowel pathology due to the lack of intravenous and oral contrast. However, there is no definite bowel wall thickening or obstruction. Normal appendix. A few colonic diverticula. No evidence for acute diverticulitis. There is moderate left perinephric edema and mild right perinephric edema. This has progressed on the left. Bilateral nonobstructing renal calculi are again noted. This is most pronounced on the left. There is mild urothelial thickening within the left renal collecting system and left ureter. No obstructing stones or hydronephrosis identified. Left peripelvic renal cysts again noted. IMPRESSION: 1. Moderate left perinephric edema with urothelial thickening of the left renal collecting system and left ureter. This has progressed in the interval. No hydronephrosis. This could be due to a pyelonephritis/pyelitis or a recently passed stone. Recommend correlation with urinalysis. 2. Bilateral nephrolithiasis. No ureteral stones identified. 3. Mild bladder wall thickening, unchanged. This may be due to chronic outlet obstruction from the enlarged prostate gland. A cystitis could also have a similar appearance. 4. Cholelithiasis. No gallbladder wall thickening. 5. Hepatic steatosis with early changes of cirrhosis. This is similar to the prior study. 6. Colonic diverticulosis. No evidence for acute diverticulitis. 7. Abdominal aortic aneurysms measuring up to 4.3 cm, unchanged. ACT 112: Negative or not required by law. Electronically signed by: Naren Metcalf M.D. 07/28/2022 4:13 PM Medications Administered Current Inpatient Medications Acetaminophen (Acetaminophen 325 Mg Tab) 650 mg PO Q4H PRN PRN Reason: Pain or Fever Stop: 08/27/22 15:47 Last Admin: 07/30/22 05:19 Dose: 650 mg Amlodipine Besylate (Amlodipine Besylate 5 Mg Tab) 5 mg PO HS ADILENE Stop: 08/27/22 20:59 Last Admin: 07/29/22 21:44 Dose: 5 mg Atorvastatin Calcium (Atorvastatin 40 Mg Tab) 80 mg PO QAM ADILENE Stop: 08/28/22 08:59 Last Admin: 07/30/22 09:15 Dose: 80 mg Guaifenesin (Guaifenesin 600 Mg Tabcr) 600 mg PO Q12 [facility] Stop: 08/27/22 20:59 Last Admin: 07/30/22 09:15 Dose: 600 mg Heparin Sodium (Porcine) (Heparin Sod 5,000 Unit/0.5 Ml Vial) 5,000 units SQ Q8 [facility]IL[facility] Stop: 08/28/22 13:59 Last Admin: 07/29/22 14:59 Dose: Not Given Ampicillin Sodium 2,000 mg/ (Sodium Chloride) 100 mls @ 200 mls/hr IV Q4 [facility]; Protocol Stop: 08/13/22 11:29 Last Admin: 07/30/22 11:11 Dose: 200 mls/hr Magnesium Sulfate/Dextrose (Magnesium Sulfate / D5w) 1 gm in 100 mls @ 50 mls/hr IV ONE ONE Stop: 07/30/22 11:40 Heparin Sodium/Dextrose (Heparin Sodium/Dextrose) 25,000 units in 500 mls @ 33 mls/hr IV .[id number] [facility]; Protocol Stop: 08/29/22 10:54 Metoprolol Succinate (Metoprolol Succ 50mg Ext Rel Tab) 200 mg PO QAM [facility] Stop: 08/28/22 08:59 Last Admin: 07/30/22 09:15 Dose: 200 mg Potassium Phosphate (Potassium Phos 3 Mmol/1 Ml Infusion) 40 mmol IV NOW STA Stop: 07/30/22 11:28 Tamsulosin HCl (Tamsulosin Hcl 0.4 Mg Cap) 0.4 mg PO HS [facility] Stop: 08/27/22 20:59 Last Admin: 07/29/22 21:44 Dose: 0.4 mg
[2022-07-30] MEDS ORDERED: POTASSIUM PHOSPHATE IV ONE (11:45)
[2022-07-30] MEDS ORDERED: DEXTROSE 5% IV ONE (11:45)
[2022-07-30] MEDS: HEPARIN SODIUM/DEXTROSE 25,000 UNITS/500 ML BAG IV SCH (12:36)
[2022-07-30 19:31] LABS: Partial Thromboplastin Ratio 1.5; Partial Thromboplastin Time 41.8 Seconds (21.0-31.0)
[2022-07-30] MEDS: amLODIPine BESYLATE 5 MG TAB PO SCH (20:46)
[2022-07-30] MEDS: TAMSULOSIN HCL 0.4 MG CAP PO SCH (20:46)
[2022-07-31 01:58] LABS: Hematocrit (blood only) 37.2 % (40.1-51.0); Mean Corpuscular Hemoglobin 30.2 pg (25.0-34.0); Mean Corpuscular Hgb Conc 34.9 g/dL (32.0-36.0); Mean Corpuscular Volume 86.3 fL (80.0-100.0); Mean Platelet Volume 10.2 fL (9.4-12.4); Platelet Count 177 K/uL (130-400); RDW Coefficient of Variation 12.6 % (11.5-14.5); RDW Standard Deviation 39.8 fL (36.4-46.3); Red Blood Count 4.31 M/uL (4.63-6.08); White Blood Count 8.97 K/ul (4.8-10.8)
[2022-07-31 02:12] LABS: Partial Thromboplastin Ratio 1.4; Partial Thromboplastin Time 39.6 Seconds (21.0-31.0)
[2022-07-31 02:32] LABS: Albumin Globulin Ratio 1.1 (0.9-2); Albumin Level 3.6 gm/dl (3.4-5.0); Bilirubin,Total 1.2 mg/dl (0.2-1.0); Calcium 8.6 mg/dl (8.5-10.1); Creatinine Clr Calc Pharmacy 76.1 ml/min; Est GFR (African American) 66.4 ml/min; Est GFR (Non-African American) 57.3 ml/min; Globulin 3.2 gm/dl (2.5-4.0); Phosphorus 2.3 mg/dl (2.5-4.9); Potassium 3.4 mmol/L (3.5-5.1); Total Protein 6.8 gm/dl (6.0-8.3)
[2022-07-31] MEDS: HEPARIN SODIUM/DEXTROSE 25,000 UNITS/500 ML BAG IV SCH ×2 (03:36→20:12)
[2022-07-31] MEDS: AMPICILLIN 2,000 MG in SODIUM CHLOR 0.9% AD-VAN 100 ML IV SCH ×5 (04:37→19:52)
[2022-07-31] MEDS ORDERED: POTASSIUM CHLORIDE CRTAB 20 MEQ TABCR PO STA (07:39)
[2022-07-31] MEDS ORDERED: POTASSIUM PHOS 3 MMOL/1 ML INFUSION IV STA (07:39)
[2022-07-31] MEDS ORDERED: POTASSIUM PHOSPHATE 40 MMOL in SODIUM CHLORIDE 0.9% 1000ML 1,000 ML IV ONE (07:45)
[2022-07-31] MEDS: ATORVASTATIN 40 MG TAB PO SCH (08:16)
[2022-07-31] MEDS: METOPROLOL SUCC 50MG EXT REL TAB PO SCH (08:16)
[2022-07-31] MEDS: guaiFENesin 600 MG TABCR PO SCH ×2 (08:16→19:53)
[2022-07-31 08:52] LABS: Partial Thromboplastin Ratio 1.6; Partial Thromboplastin Time 43.7 Seconds (21.0-31.0)
[2022-07-31] MEDS ORDERED: dilTIAZem HCL 30 MG TAB PO ONE (10:01)
--- NOTE | 2022-07-31 10:29 | Cardiology Progress Note ---
Date of Service July 31, 2022 Assessment & Plan (1) Paroxysmal atrial fibrillation: (2) Sepsis: (3) HTN (hypertension): (4) AAA (abdominal aortic aneurysm) without rupture: (5) Hypomagnesemia: (6) Hypokalemia: (7) Hyponatremia: Plan Paroxysmal atrial fibrillation with RVR in the setting of sepsis, fever, electrolyte derangement. Borderline elevated resting heart rate with RVR up to 140 bpm during activity. Essentially asymptomatic. Serum magnesium today within normal limits. Supplement potassium as indicated. Continue Toprol-XL 200 mg daily. Add Cardizem 30 mg 3 times daily, first dose now. Discontinue amlodipine. Continue intravenous heparin. Transition to Eliquis at discharge. Preliminary review of bedside 2D transthoracic echocardiogram demonstrates preserved LV systolic function without significant valvular pathology. Full report to follow. Continue telemetry monitoring. Repeat lab studies and ECG in a.m. Admission and Anticipated Discharge Date Admission Date: July 28, 2022 Subjective Patient seen examined the bedside. States "I feel well today". Anxious for discharge. Heart rate mildly elevated on telemetry. Denies palpitations, lightheadedness, or dizziness. Blood pressure trending upward. Hydrochlorothiazide discontinued during hospitalization. Review of Systems Review of Systems: All systems reviewed & are unremarkable except as noted in Subjective Physical Exam Constitutional: well nourished; no acute distress Respiratory: no respiratory distress, no labored breathing and no retractions Auscultation: no crackles, no rales, no rhonchi and no wheezes Cardiovascular: Rate/Rhythm: + irregularly irregular Heart Sounds: normal S1 and normal S2; no murmur Vessels: radial pulses present; no JVD and no carotid bruit Extremities: no edema Gastrointestinal (Abdomen): Inspection/Auscultation: abdomen normal to inspection and normal bowel sounds; abdomen not distended Percussion/Palpat ion: abdomen soft; abdomen nontender, no guarding and abdomen not rigid Neurologic: CN's II-XI intact bilaterally and moves all extremities; no focal motor deficits Motor/Sensory: no tremor Psychiatric: A+Ox3, euthymic affect Results & Data ([facility]) Vital Signs (Past 12 Hours) Vital Signs Temp Pulse Pulse Pulse Resp BP BP 07/31/22 09:00 110 H 07/31/22 09:00 07/31/22 08:38 37.0 C 104 H 18 146/89 H 07/31/22 02:40 104 H 17 07/31/22 03:43 36.7 C 97 H 16 164/83 H 07/31/22 00:37 84 18 07/30/22 23:39 36.9 C 101 H 16 135/84 Pulse Ox O2 Del Method FiO2 07/31/22 09:00 07/31/22 09:00 Room Air, CPAP 07/31/22 08:38 95 Room Air 07/31/22 02:40 93 21 07/31/22 03:43 95 CPAP 07/31/22 00:37 94 21 07/30/22 23:39 95 Room Air
[2022-07-31] MEDS ORDERED: LACTATED RINGER'S 500 ML IV ONE (11:01)
--- NOTE | 2022-07-31 11:01 | Hospitalist Progress Note ---
Date of Service July 31, 2022 Assessment & Plan (1) Bacteremia: Plan: - Patient presents with sepsis, fever 39.2 Celsius, WBC 22,000, creatinine 2.7, PCT 23 - sepsis resolved - Recently had procedures with urology due to renal calculi, retained stent - Urine culture, blood cultures - enterococcus - vancomycin discontinued - deescalated cefepime to Unasyn --> ampicillin - monitor for continued improvement - repeat blood cultures 07/30/2022 NGTD - if blood cultures negative after 48 hours - discharge home to complete 2 weeks of abx with amoxicillin - likely 08/01/2022 - clinically much improved (2) New onset a-fib: Plan: - converted to afib on telemetry overnight 07/29-07/30/2022 - asymptomatic - seen by cardiology - heparin drip started - discharge on Eliquis if still in Afib - follow up cards for definitive AC recs - continue 200mg toprol, added 30mg TID diltiazem today for better rate control - can convert to 120mg daily if needed on discharge - TTE unremarkable - electrolytes repleted - follow up further recs (3) Pyelonephritis: Plan: - likely related to recent urologic procedure - urology consulted - no intervention - continue abx - no CVA tenderness this morning - resolved - see above for further abx management (4) Acute kidney injury superimposed on CKD: Plan: - likely in the setting of sepsis and pyelonephritis - improved s/p IVF - trend Cr - close to baseline - avoid nephrotoxic medications (5) Hyponatremia: Plan: - likely due to poor po intake in the setting of sepsis - IVF as above - encourage po when tolerating - will monitor (6) Bilateral kidney stones: Plan: - noted on CT - no hydronephrosis or CVA tenderness this morning - urology following - noted (7) HLD (hyperlipidemia): Plan: - continue statin (8) HTN (hypertension): Plan: - on amlodipine, metoprolol, HCTZ at home - hold HCTZ due to DANITZA - restart on discharge (9) Aortic aneurysm: Plan: - stable on CT (10) Sleep apnea: Plan: - continue CPAP Plan DVT ppx: heparin SC Code Status: Full Code Dispo: PCU/telemetry - downgrade to med/surg Darvin Cook MD Hospital Medicine Admission and Anticipated Discharge Date Admission Date: July 28, 2022 Subjective 61 year old man with pmh HLD, HTN, stable AAA, PEEWEE on CPAP, DM2, CK, h/o renal calculus and ureteral calculus s/p removal 07/22/2022 presented with fevers and sepsis likely due to pyelonephritis now with bacteremia. Started on broad spectrum abx, now deescalated to unasyn given speciation. Improving now with abx . Urology consulted, no intervention at this time. Converted to afib overnight 07/30/2022, seen by cardiology, heparin drip started, TTE unremarkable. Started on diltiazem 30mg TID for better rate control - if still in afib by discharge, will need Eliquis, if in NSR can likely discharge without Eliquis - follow up with Cardiology. Will likely discharge on po abx 08/01/2022 pending sensitivities. Patient feels much better today, sitting up, eating, asking to go home. Denies flank pain this morning, n/v/d, abdominal pain, chest pain, shortness of breath, cough, dysuria. Review of Systems Review of Systems: All systems reviewed & are unremarkable except as noted in Subjective Physical Exam Physical Exam: Constitutional:K WD/WN, vitals as a shaw (obese M in N AD) Eyes: PERRL, conjunctiva e normal, anicteri c sclerae ENMT: external ear and n ose normal, oropha rynx normal Neck: + thick neck Respiratory: normal respiratory effort, lungs nico ar to auscultation Cardiovascular:K RRR, no murmur, no edema Chest (Breasts): Chest: normal insp ection of chest Gastrointestinal ( Abdomen): normal bowel sound s, soft, nontender , no hepatosplenom egaly, no CVA tend erness Musculoskeletal: no cyanosis or clu bbing, extremities motor strength 5/ 5 Skin: no rashes, warm an d dry Neurologic: PERRL, EOMI, accom modation nl, no fa ce palsy, no dysar thria Psychiatric: A+Ox3, euthymic af fect Genitourinary: - CVA tenderness Lymphatic: no lymphedema Results & Data Results & Data ([facility]) Vital Signs (Past 12 Hours) Vital Signs Temp Pulse Pulse Pulse Resp BP BP 07/31/22 09:00 110 H 07/31/22 09:00 07/31/22 08:38 37.0 C 104 H 18 146/89 H 07/31/22 02:40 104 H 17 07/31/22 03:43 36.7 C 97 H 16 164/83 H 07/31/22 00:37 84 18 07/30/22 23:39 36.9 C 101 H 16 135/84 Pulse Ox O2 Del Method FiO2 07/31/22 09:00 07/31/22 09:00 Room Air, CPAP 07/31/22 08:38 95 Room Air 07/31/22 02:40 93 21 07/31/22 03:43 95 CPAP 07/31/22 00:37 94 21 07/30/22 23:39 95 Room Air Diagnostic Findings Laboratory Results WBC 8.97 K/ul (4.8-10.8) 07/31/22 01:44 RBC 4.31 M/uL (4.63-6.08) L 07/31/22 01:44 Hgb 13.0 g/dl (14.0-18.0) L 07/31/22 01:44 Hct 37.2 % (40.1-51.0) L 07/31/22 01:44 MCV 86.3 fL (80.0-100.0) 07/31/22 01:44 MCH 30.2 pg (25.0-34.0) 07/31/22 01:44 MCHC 34.9 g/dL (32.0-36.0) 07/31/22 01:44 RDW Std Deviation 39.8 fL (36.4-46.3) 07/31/22 01:44 RDW Coeff of Marcio 12.6 % (11.5-14.5) 07/31/22 01:44 Plt Count 177 K/uL (130-400) 07/31/22 01:44 MPV 10.2 fL (9.4-12.4) 07/31/22 01:44 Immature Gran % (Auto) 0.3 % 07/30/22 08:57 Neut % (Auto) 80.2 % 07/30/22 08:57 Lymph % (Auto) 8.6 % 07/30/22 08:57 Forest % (Auto) 9.8 % 07/30/22 08:57 Eos % (Auto) 0.7 % 07/30/22 08:57 Baso % (Auto) 0.4 % 07/30/22 08:57 Neut # (Auto) 9.33 K/uL (1.4-6.5) H 07/30/22 08:57 Lymph # (Auto) 1.00 K/uL (1.2-3.4) L 07/30/22 08:57 Forest # (Auto) 1.14 K/uL (0.24-0.82) H 07/30/22 08:57 Eos # (Auto) 0.08 K/uL (0-0.50) 07/30/22 08:57 Baso # (Auto) 0.05 K/uL (0-0.2) 07/30/22 08:57 Immature Gran # (Auto) 0.04 K/uL (0.00-0.02) H 07/30/22 08:57 Toxic Granulation 1+ 07/28/22 11:55 Toxic Vacuolation 1+ 07/28/22 11:55 Dohle Bodies 1+ 07/28/22 11:55 APTT 43.7 Seconds (21.0-31.0) H 07/31/22 08:29 PTT Ratio 1.6 07/31/22 08:29 Sodium 134 mmol/L (136-145) L 07/31/22 01:44 Potassium 3.4 mmol/L (3.5-5.1) L 07/31/22 01:44 Chloride 101 mmol/L (98-107) 07/31/22 01:44 Carbon Dioxide 24 mmol/L (21-32) 07/31/22 01:44 Anion Gap 9 (3-11) 07/31/22 01:44 BUN 20 mg/dl (6-23) 07/31/22 01:44 Creatinine 1.33 mg/dl (0.6-1.4) 07/31/22 01:44 Est Cr Clr Drug Dosing 76.1 ml/min 07/31/22 01:44 Est GFR ( Amer) 66.4 ml/min 07/31/22 01:44 Est GFR (Non-Af Amer) 57.3 ml/min 07/31/22 01:44 BUN/Creatinine Ratio 15.0 (10-20) 07/31/22 01:44 Glucose 171 mg/dl (70-99(Fasting)) H 07/31/22 01:44 Lactate 1.6 mmol/L (0.4-2.0) 07/28/22 12:58 Calcium 8.6 mg/dl (8.5-10.1) 07/31/22 01:44 Phosphorus 2.3 mg/dl (2.5-4.9) L D 07/31/22 01:44 Magnesium 2.0 mg/dl (1.7-2.4) 07/31/22 01:44 Total Bilirubin 1.2 mg/dl (0.2-1.0) H 07/31/22 01:44 AST 89 U/L (13-39) H 07/31/22 01:44 ALT 83 U/L (7-52) H 07/31/22 01:44 Alkaline Phosphatase 123 U/L (34-104) H 07/31/22 01:44 Troponin I High Sens 46.2 pg/ml (0-20) H D 07/30/22 08:57 Total Protein 6.8 gm/dl (6.0-8.3) 07/31/22 01:44 Albumin 3.6 gm/dl (3.4-5.0) 07/31/22 01:44 Globulin 3.2 gm/dl (2.5-4.0) 07/31/22 01:44 Albumin/Globulin Ratio 1.1 (0.9-2) 07/31/22 01:44 Procalcitonin 23.17 ng/ml (0-0.5) H 07/28/22 12:50 TSH 1.379 uIu/ml (0.300-4.500) 07/30/22 08:57 Urine Color Dark Yellow 07/28/22 13:06 Urine Appearance Cloudy (Clear) A 07/28/22 13:06 Urine pH 5.0 (4.5-7.5) 07/28/22 13:06 Ur Specific [place] 1.022 (1.000-1.030) 07/28/22 13:06 Urine Protein 2+ (Negative) H 07/28/22 13:06 Urine Glucose (UA) Negative (Negative) 07/28/22 13:06 Urine Ketones Negative (Negative) 07/28/22 13:06 Urine Blood 3+ (Negative) H 07/28/22 13:06 Urine Nitrite Negative (Negative) 07/28/22 13:06 Urine Bilirubin Negative (Negative) 07/28/22 13:06 Urine Urobilinogen Negative (Negative) 07/28/22 13:06 Ur Leukocyte Esterase Trace (Negative) H 07/28/22 13:06 Urine WBC (Auto) 10-30 /hpf (0-5) H 07/28/22 13:06 Urine RBC (Auto) 10-30 /hpf (0-4) H 07/28/22 13:06 U Hyaline Cast (Auto) 1-5 /lpf (0-5) 07/28/22 13:06 U Epithel Cells (Auto) 20-30 /lpf (0-5) H 07/28/22 13:06 Urine Bacteria (Auto) Negative (Negative) 07/28/22 13:06 Granular Casts 1-5 /lpf (0) H 07/28/22 13:06 Urine Yeast Not Reportable 07/28/22 13:06 Enterococc faecalis PCR DETECTED (NotDetected) A 07/28/22 12:50 SARS-CoV-2, RNA, NAAT NEGATIVE (NEGATIVE) 07/28/22 11:55 Booker/B-Vanco Res Genes VRE Not Detected (NotDetected) 07/28/22 12:50 Bld Cult ID Panel PCR See PCR Comment (NotDetected) 07/28/22 12:50 Impressions Chest X-Ray 07/28/22 12:25 XR chest 1V portable HISTORY: fever COMPARISON: Chest and left rib series 11/18/2021. FINDINGS: No pneumothorax. No pleural effusions. Left lateral basilar pleural thickening remains unchanged. The heart is normal in size. Patchy hazy airspace opacities within the left lower lobe which are new from the prior study. This consistent with a developing pneumonia. Healing left posterior seventh and eighth rib fractures are noted. IMPRESSION: Hazy patchy airspace opacities within the left lung base which are new from the prior study and likely represent a developing pneumonia. ACT 112: Negative or not required by law. Electronically signed by: Naren Metcalf M.D. 07/28/2022 12:38 PM Abdomen/Pelvis CT 07/28/22 15:[address] WITHOUT CONTRAST CT DOSE: 1235.51 mGy.cm HISTORY: Lower pelvic pain. TECHNIQUE: Multiaxial CT images of the abdomen and pelvis were performed without contrast. A dose lowering technique was utilized adhering to the principles of ALARA. COMPARISON STUDY: Abdomen and pelvis CT 10/13/2021. FINDINGS: A stable 3 mm nodule within the left lower lobe on image 21. Mild dependent changes seen within the left lung base. The there are old left posterior rib fractures. Cholelithiasis. No gallbladder wall thickening. Hepatic steatosis with a subtle nodular contour to the liver consistent with mild cirrho sis. This remains unchanged. The unenhanced pancreas, spleen, and adrenal glands are unremarkable. There is a 3.7 cm suprarenal abdominal aortic aneurysm and a 4.3 cm infrarenal abdominal aortic aneurysm. These are similar to the prior study. No pelvic lymphadenopathy or pelvic free fluid. The prostate gland remains enlarged. There is mild bladder wall thickening. This remains unchanged. Suboptimal evaluation for bowel pathology due to the lack of intravenous and oral contrast. However, there is no definite bowel wall thickening or obstruction. Normal appendix. A few colonic diverticula. No evidence for acute diverticulitis. There is moderate left perinephric edema and mild right perinephric edema. This has progressed on the left. Bilateral nonobstructing renal calculi are again noted. This is most pronounced on the left. There is mild urothelial thickening within the left renal collecting system and left ureter. No obstructing stones or hydronephrosis identified. Left peripelvic renal cysts again noted. IMPRESSION: 1. Moderate left perinephric edema with urothelial thickening of the left renal collecting system and left ureter. This has progressed in the interval. No hydronephrosis. This could be due to a pyelonephritis/pyelitis or a recently passed stone. Recommend correlation with urinalysis. 2. Bilateral nephrolithiasis. No ureteral stones identified. 3. Mild bladder wall thickening, unchanged. This may be due to chronic outlet obstruction from the enlarged prostate gland. A cystitis could also have a similar appearance. 4. Cholelithiasis. No gallbladder wall thickening. 5. Hepatic steatosis with early changes of cirrhosis. This is similar to the prior study. 6. Colonic diverticulosis. No evidence for acute diverticulitis. 7. Abdominal aortic aneurysms measuring up to 4.3 cm, unchanged. ACT 112: Negative or not required by law. Electronically signed by: Naren Metcalf M.D. 07/28/2022 4:13 PM Medications Administered Current Inpatient Medications Acetaminophen (Acetaminophen 325 Mg Tab) 650 mg PO Q4H PRN PRN Reason: Pain or Fever Stop: 08/27/22 15:47 Last Admin: 07/30/22 05:19 Dose: 650 mg Amlodipine Besylate (Amlodipine Besylate 5 Mg Tab) 5 mg PO HS [facility] Stop: 08/27/22 20:59 Last Admin: 07/30/22 20:46 Dose: 5 mg Atorvastatin Calcium (Atorvastatin 40 Mg Tab) 80 mg PO QAM [facility] Stop: 08/28/22 08:59 Last Admin: 07/31/22 08:16 Dose: 80 mg Diltiazem HCl (Diltiazem Hcl 30 Mg Tab) 30 mg PO TID [facility] Stop: 08/30/22 13:59 Guaifenesin (Guaifenesin 600 Mg Tabcr) 600 mg PO Q12 [facility] Stop: 08/27/22 20:59 Last Admin: 07/31/22 08:16 Dose: 600 mg Heparin Sodium (Porcine) (Heparin Sod 5,000 Unit/0.5 Ml Vial) 5,000 units SQ Q8 [facility] Stop: 08/28/22 13:59 Last Admin: 07/29/22 14:59 Dose: Not Given Ampicillin Sodium 2,000 mg/ (Sodium Chloride) 100 mls @ 200 mls/hr IV Q4 [facility]; Protocol Stop: 08/13/22 11:29 Last Infusion: 07/31/22 08:47 Dose: Infused Heparin Sodium/Dextrose (Heparin Sodium/Dextrose) 25,000 units in 500 mls @ 39 mls/hr IV .[id number] [facility]; Protocol Stop: 08/29/22 10:54 Last Titration: 07/31/22 09:00 Dose: 1,950 units/hr, 39 mls/hr Potassium Phosphate 40 mmol/ (Sodium Chloride) 1,013.3333 mls @ 100 mls/hr IV ONE ONE Stop: 07/31/22 17:52 Last Admin: 07/31/22 08:49 Dose: 100 mls/hr Metoprolol Succinate (Metoprolol Succ 50mg Ext Rel Tab) 200 mg PO QAM [facility] Stop: 08/28/22 08:59 Last Admin: 07/31/22 08:16 Dose: 200 mg Tamsulosin HCl (Tamsulosin Hcl 0.4 Mg Cap) 0.4 mg PO HS [facility] Stop: 08/27/22 20:59 Last Admin: 07/30/22 20:46 Dose: 0.4 mg
[2022-07-31] MEDS: dilTIAZem HCL 30 MG TAB PO SCH ×2 (14:24→19:52)
--- NOTE | 2022-07-31 14:42 | Electrocardiogram Report ---
Test Reason : Blood Pressure : / mmHG Vent. Rate : 102 BPM Atrial Rate : 125 BPM P-R Int : 000 ms QRS Dur : 096 ms QT Int : 358 ms P-R-T Axes : 000 009 010 degrees QTc Int : 466 ms Poor data quality, interpretation may be adversely affected Atrial fibrillation with rapid ventricular response Old Inferior infarct (cited on or before 30-JUL-2022) Nonspecific T wave abnormality Lateral leads Abnormal ECG When compared with ECG of 30-JUL-2022 00:58, No significant change Confirmed by Kendall Bullock ([id number]) on 07/31/2022 2:42:26 PM Referred By: REFERRED SELF Confirmed By:Kendall Bullock
[2022-07-31 15:53] LABS: Partial Thromboplastin Ratio 1.6; Partial Thromboplastin Time 43.9 Seconds (21.0-31.0)
[2022-07-31 18:32] LABS: Partial Thromboplastin Time 26.6 Seconds (21.0-31.0)
[2022-07-31] MEDS: ACETAMINOPHEN 325 MG TAB PO PRN (19:51)
[2022-07-31] MEDS: amLODIPine BESYLATE 5 MG TAB PO SCH (19:53)
[2022-07-31] MEDS: TAMSULOSIN HCL 0.4 MG CAP PO SCH (19:54)
[2022-08-01] MEDS: AMPICILLIN 2,000 MG in SODIUM CHLOR 0.9% AD-VAN 100 ML IV SCH ×4 (00:35→13:02)
[2022-08-01 01:05] LABS: Partial Thromboplastin Ratio 1.6; Partial Thromboplastin Time 44.3 Seconds (21.0-31.0)
[2022-08-01] MEDS: HEPARIN SODIUM/DEXTROSE 25,000 UNITS/500 ML BAG IV SCH ×2 (03:23→10:52)
[2022-08-01] MEDS: ACETAMINOPHEN 325 MG TAB PO PRN (06:22)
[2022-08-01 07:46] LABS: Basophils # (auto) 0.07 K/uL (0-0.2); Basophils % (auto) 0.7 %; Eosinophils # (auto) 0.27 K/uL (0-0.50); Eosinophils % (auto) 2.6 %; Hematocrit (blood only) 39.5 % (40.1-51.0); Hemoglobin 13.7 g/dl (14.0-18.0); Immature Granulocytes # (auto) 0.44 K/uL (0.00-0.02); Immature Granulocytes % (auto) 4.2 %; Lymphocytes # (auto) 1.51 K/uL (1.2-3.4); Lymphocytes % (auto) 14.3 %; Mean Corpuscular Hemoglobin 30.4 pg (25.0-34.0); Mean Corpuscular Hgb Conc 34.7 g/dL (32.0-36.0); Mean Corpuscular Volume 87.8 fL (80.0-100.0); Mean Platelet Volume 10.1 fL (9.4-12.4); Monocytes # (auto) 0.99 K/uL (0.24-0.82); Monocytes % (auto) 9.4 %; Neutrophils # (auto) 7.25 K/uL (1.4-6.5); Neutrophils % (auto) 68.8 %; Platelet Count 243 K/uL (130-400); RDW Coefficient of Variation 12.7 % (11.5-14.5); White Blood Count 10.53 K/ul (4.8-10.8)
[2022-08-01 08:11] LABS: Albumin Level 3.6 gm/dl (3.4-5.0); BUN Creatinine Ratio 11.4 (10-20); Bilirubin,Total 1.1 mg/dl (0.2-1.0); Calcium 9.1 mg/dl (8.5-10.1); Creatinine Clr Calc Pharmacy 77.6 ml/min; Est GFR (Non-African American) 57.8 ml/min; Globulin 3.5 gm/dl (2.5-4.0); Magnesium 1.7 mg/dl (1.7-2.4); Phosphorus 2.7 mg/dl (2.5-4.9); Potassium 3.6 mmol/L (3.5-5.1); Total Protein 7.1 gm/dl (6.0-8.3)
[2022-08-01 08:28] LABS: Partial Thromboplastin Ratio 1.7
[2022-08-01 08:47] LABS: Partial Thromboplastin Time 47.9 Seconds (21.0-31.0)
[2022-08-01] MEDS: METOPROLOL SUCC 50MG EXT REL TAB PO SCH (09:28)
[2022-08-01] MEDS: guaiFENesin 600 MG TABCR PO SCH (09:28)
[2022-08-01] MEDS: dilTIAZem HCL 30 MG TAB PO SCH (09:28)
[2022-08-01] MEDS: ATORVASTATIN 40 MG TAB PO SCH (09:28)
[2022-08-01] MEDS ORDERED: APIXABAN 5 MG TABLET PO SCH (09:30)
--- NOTE | 2022-08-01 09:35 | Cardiology Progress Note ---
Date of Service August 01, 2022 Assessment & Plan (1) Paroxysmal atrial fibrillation: (2) Sepsis: (3) HTN (hypertension): (4) AAA (abdominal aortic aneurysm) without rupture: (5) Hypomagnesemia: (6) Hypokalemia: (7) Hyponatremia: Plan Paroxysmal atrial fibrillation with RVR in the setting of sepsis, fever, electrolyte derangement. Heart rate improved with addition of oral diltiazem. Titrate diltiazem to 30 mg 4 times daily. Transition to Cardizem CD 120 mg daily at discharge. Continue Toprol-XL 200 mg daily. Discontinue amlodipine. Discontinue IV heparin. Start Eliquis 5 mg twice daily today. Outpatient cardiology follow-up in 2 weeks. Schedule external direct-current cardioversion after 4 weeks of adequate anticoagulation if necessary. Admission and Anticipated Discharge Date Admission Date: July 28, 2022 Subjective Patient seen examined the bedside. Heart rate improved with addition of oral diltiazem since 07/31/2022. Average resting heart rate 90 bpm. Patient states "my heart feels calmer". Denies chest pain or palpitations. No lightheadedness, dizziness, syncope, or near syncope. Afebrile overnight. Requesting discharge. Review of Systems Review of Systems: All systems reviewed & are unremarkable except as noted in Subjective Physical Exam Constitutional: well nourished; no acute distress Respiratory: no respiratory distress, no labored breathing and no retractions Auscultation: no crackles, no rales, no rhonchi and no wheezes Cardiovascular: Rate/Rhythm: + irregularly irregular Heart Sounds: normal S1 and normal S2; no murmur Vessels: radial pulses present; no JVD and no carotid bruit Extremities: no edema Gastrointestinal (Abdomen): Inspection/Auscultation: abdomen normal to inspection and normal bowel sounds; abdomen not distended Percussion/Palpation: abdomen soft; abdomen nontender, no guarding and abdomen not rigid Neurologic: CN's II-XI intact bilaterally and moves all extremities; no focal motor deficits Motor/Sensory: no tremor Psychiatric: A+Ox3, euthymic affect Results & Data ([facility]) Vital Signs (Past 12 Hours) Vital Signs Temp Pulse Pulse Resp BP Pulse Ox O2 Del Method 08/01/22 07:35 36.9 C 89 18 144/81 H 96 Room Air 08/01/22 03:12 82 18 96 08/01/22 03:00 36.8 C 87 18 137/82 95 Room Air 08/01/22 00:20 89 19 97 08/01/22 02:02 75 07/31/22 23:06 36.8 C 80 18 157/92 H 93 Room Air FiO2 08/01/22 07:35 08/01/22 03:12 21 08/01/22 03:00 08/01/22 00:20 21 08/01/22 02:02 07/31/22 23:06
[2022-08-01] MEDS ORDERED: dilTIAZem HCL 30 MG TAB PO SCH (13:00)
--- NOTE | 2022-08-01 13:09 | Discharge Summary ---
Discharge Summary Date of Service August 01, 2022 Notes For Next Care Provider Patient was treated for bacteremia likely secondary to pyelonephritis, patient to complete antibiotic course with amoxicillin. Patient will likely need blood test CBC/CMP/magnesium/phosphorus level in a week time upon evaluation. Patient will need follow-up with cardiology in 2 weeks. Amlodipine has been stopped, Cardizem has been started along with Eliquis due to his new onset A. fib. Medication Changes From Visit Amlodipine stopped. Cardizem started. Eliquis started. Amoxicillin and probiotics prescribed for your infection, complete the course. Admission HPI Per Admitting Provider Pt is a 61-year-old male, with history of hyperlipidemia, hypertension, AAA, PEEWEE on CPAP, DM type II on metformin, CKD stage III a , renal calculi status post recent procedures with urology -stone and stent removal, who now presents with fever, loss of appetite, nausea. Patient reports having procedures with Dr. Contreras for his renal calculi, and retained stent. He was discharged on Keflex which he took. He reports that previously he had quite a bit of burning with urination, however now denies that. He does reports "kidney/flank pain" more on the right. He denies any difficulty with urination though. About 3 days ago, he started to feel unwell, with poor appetite, low-grade fevers, nasal congestion, dry intermittent cough, and also increased flank pain. In the ED patient febrile with temperature 39.2 C. Creatinine 2.7. Procalcitonin also elevated at 27, WBC elevated at 22,000. He was given IV fluids, and started on IV antibiotics cefepime. Chest x-ray was obtained in the ED, concerning forr poss. starting pna. Given recent history of urologic procedures and patient reporting flank pain, will also obtain CT abdomen pelvis. Admission Exam Per Admitting Provider Constitutional: WD/WN, vitals as above (obese M in NAD) Eyes: PERRL, conjunctivae normal, anicteric sclerae ENMT:K external ear and nose normal, oropharynx normal Neck: + thick neck Respiratory: normal respiratory effort, lungs clear to auscultation Cardiovascular: RRR, no murmur, no edema Chest (Breasts): Chest: normal inspection of chest Gastrointestinal (Abdomen): normal bowel sounds, soft, nontender, no hepatosplenomegaly (obese, + CVA tenderness R>L) Musculoskeletal: no cyanosis or clubbing, extremities motor strength 5/5 Skin: no rashes, warm and dry Neurologic: PERRL, EOMI, accommodation nl, no face palsy, no dysarthria Psychiatric: A+Ox3, euthymic affect Genitourinary: + CVA tenderness Lymphatic: no lymphedema Principal Dx & Hospital Course #1 = Principal Diagnosis (1) Bacteremia: (2) Pyelonephritis: (3) New onset a-fib: Plan 61-year-old male was managed for the following while in hospital: (1) Bacteremia: Plan: - Patient presents with sepsis, fever 39.2 Celsius, WBC 22,000, creatinine 2.7, PCT 23 - sepsis resolved - Recently had procedures with urology due to renal calculi, retained stent - Urine culture, blood cultures - enterococcus - vancomycin discontinued - deescalated cefepime to Unasyn --> amoxicillin on discharge. Complete 14-day course from the date of negative blood culture. - repeat blood cultures 07/30/2022 NGTD, patient to follow-up with PCP for final results on 07/30 blood culture, patient made aware. - clinically much improved. Probiotics added. (2) New onset a-fib: Plan: - converted to afib on telemetry overnight 07/29-07/30/2022 - asymptomatic - seen by cardiology - heparin drip started -patient still in A. fib, being discharged on Eliquis and Cardizem. - follow up cards as an outpatient in 2 weeks, patient aware. -Hemodynamically stable, rate controlled. TTE unremarkable. Patient will need blood work in a week time. (3) Pyelonephritis: Plan: - likely related to recent urologic procedure - urology consulted - no intervention - continue abx - no CVA tenderness this morning - resolved - see above for further abx management (4) Acute kidney injury superimposed on CKD: Plan: - likely in the setting of sepsis and pyelonephritis - improved s/p IVF (5) Hyponatremia: Plan: - likely due to poor po intake in the setting of sepsis -Improving, patient to follow-up with blood test in a week time with PCP. (6) Bilateral kidney stones: Plan: - noted on CT - no hydronephrosis or CVA tenderness this morning - urology evaluated, appreciate recs. - patient to follow-up with urology on 08/31/2022. (7) HLD (hyperlipidemia): Plan: - continue statin (8) HTN (hypertension): Plan: - on amlodipine, metoprolol, HCTZ at home - hold HCTZ due to DANITZA - restart on discharge (9) Aortic aneurysm: Plan: - stable on CT (10) Sleep apnea: Plan: - continue CPAP Patient being discharged to home with following instruction at the point of discharge: Follow-up with your primary care physician within a week time, and likely will need blood test CBC/CMP/magnesium level/phosphorus level. Also you will need follow-up on your repeat blood culture final results with your PCP. Follow-up with cardiology in 2 weeks time, continue to take Eliquis 5 mg twice a day. You will be discharged on antibiotic to complete 14-day course for your bacteremia and pyelonephritis, probiotics will be added. Follow-up with urology as scheduled. Take medications as prescribed. Discharge Exam GENERAL: Alert and oriented x3. NAD, on RA. HEENT: No pallor, no icterus. Pupils equal, round and reactive to light. Oral mucosa moist. NECK: No JVD, no neck masses. HEART: S1 and S2 heard. irregular rate and rhythm. No murmur, no gallop. RESPIRATORY SYSTEM: Normal AP diameter. No accessory muscle use. No wheezing, no crackles. ABDOMEN: Soft, bowel sounds present, nontender, no distention. CENTRAL NERVOUS SYSTEM: No facial droop. Speech is clear. Obeys simple commands. Moves extremities. EXTREMITIES: No edema, no erythema seen. Dry skin noted. Updated Medication List Medication Instructions Recorded Confirmed Type hydrochlorothiazide 25 mg tablet 25 mg PO QAM 03/30/20 07/28/22 History metoprolol succinate 100 mg 200 mg PO QAM 03/30/20 07/28/22 History tablet,extended release 24 hr (Toprol XL) amlodipine 5 mg tablet 5 mg PO HS 09/15/21 07/28/22 History atorvastatin 80 mg tablet 80 mg PO QAM 09/15/21 07/28/22 History cholecalciferol (vitamin D3) 50 50 mcg PO WK 12/07/21 07/28/22 History mcg (2,000 unit) capsule (Vitamin D3) coenzyme Q10 100 mg capsule 100 mg PO WK 12/07/21 07/28/22 History (CoQ-10) sildenafil (pulm.hypertension) 20 20 - 100 mg PO DIRECTED PRN 12/07/21 07/28/22 History mg tablet Erectile Dysfunction potassium chloride 20 mEq 20 meq PO DAILY #3 tabs 03/27/22 07/28/22 Rx tablet,extended release phenazopyridine 200 mg tablet 200 mg PO Q8H PRN pain #10 tabs 07/20/22 07/28/22 Rx (Pyridium) tamsulosin 0.4 mg capsule 0.4 mg PO HS #30 caps 07/20/22 07/28/22 Rx metformin 500 mg tablet 500 mg PO DAILYBD 07/28/22 07/28/22 History amoxicillin 875 mg tablet 875 mg PO BID 11 days #22 tabs 08/01/22 Rx apixaban 5 mg tablet (Eliquis) 5 mg PO BID #60 tabs 08/01/22 Rx diltiazem HCl 120 mg 120 mg PO DAILY #30 caps 08/01/22 Rx capsule,extended release 24 hr (Cardizem CD) lactobacillus combination no.4 3 3,000 mmu cells PO DAILY 2 weeks 08/01/22 Rx billion cell capsule (Probiotic) #14 caps Hospital Stay Data Consultations 07/28/22 13:17 ED Decision to Admit Stat 07/29/22 07:43 Consult Urology Routine 07/30/22 08:00 Consult Cardiology Routine Diagnostic Imagining Performed 07/28/22 15:42 CT Abd and Pelvis [CT abd pelvis wo con] Stat Pending Results Patient Have Any Pending Studies at Discharge: Yes (Repeat blood culture final results.) Discharge Instructions Given to Patient (Per Discharging Provider) Follow-up with your primary care physician within a week time, and likely will need blood test CBC/CMP/magnesium level/phosphorus level. Also you will need follow-up on your repeat blood culture final results with your PCP. Follow-up with cardiology in 2 weeks time, continue to take Eliquis 5 mg twice a day. You will be discharged on antibiotic to complete 14-day course for your bacteremia and pyelonephritis, probiotics will be added. Follow-up with urology as scheduled. Take medications as prescribed. Total Time Total Time Spent Total Time Spent (In Minutes): 45
== END 2022-08-01 14:00 | disposition home or self-care (01) | DRG 871 ==
LOC: ED 11:25 → 4W 15:48 → SUATTDRO 15:48 → 4W 17:55

== ENCOUNTER 2022-08-13 20:49 | Inpatient (IN) ==
[2022-08-13 23:04] LABS: Basophils # (auto) 0.07 K/uL (0-0.2); Basophils % (auto) 0.8 %; Eosinophils # (auto) 0.26 K/uL (0-0.50); Eosinophils % (auto) 3.1 %; Hematocrit (blood only) 43.3 % (40.1-51.0); Hemoglobin 14.7 g/dl (14.0-18.0); Immature Granulocytes # (auto) 0.07 K/uL (0.00-0.02); Immature Granulocytes % (auto) 0.8 %; Lymphocytes # (auto) 2.71 K/uL (1.2-3.4); Lymphocytes % (auto) 32.5 %; Mean Corpuscular Hemoglobin 29.9 pg (25.0-34.0); Mean Corpuscular Hgb Conc 33.9 g/dL (32.0-36.0); Mean Platelet Volume 9.3 fL (9.4-12.4); Monocytes # (auto) 0.66 K/uL (0.24-0.82); Monocytes % (auto) 7.9 %; Neutrophils # (auto) 4.56 K/uL (1.4-6.5); Neutrophils % (auto) 54.9 %; Platelet Count 282 K/uL (130-400); RDW Coefficient of Variation 13.1 % (11.5-14.5); RDW Standard Deviation 41.5 fL (36.4-46.3); Red Blood Count 4.92 M/uL (4.63-6.08); White Blood Count 8.33 K/ul (4.8-10.8)
[2022-08-13 23:27] LABS: Appearance Urine Cloudy (Clear); Bacteria Urine Automated Negative (Negative); Blood Urine 3+ (Negative); Cast Urine Automated 0 /lpf (0-5); Color Urine Red; Epithelial Cell Urine Auto 20-30 /lpf (0-5); Glucose Urine UA Negative (Negative); Ketones Urine Negative (Negative); Leukocyte Esterase Urine 1+ (Negative); Nitrite Urine Positive (Negative); Protein Urine 3+ (Negative); RBC Urine Automated >30 /hpf (0-4); Urobilinogen Urine Negative (Negative)
[2022-08-13 23:43] LABS: Bilirubin Urine 1+ (Negative)
[2022-08-13 23:48] LABS: Alanine Aminotransferase 31 U/L (7-52); Albumin Globulin Ratio 1.1 (0.9-2); Albumin Level 4.2 gm/dl (3.4-5.0); Alkaline Phosphatase 126 U/L (34-104); Anion Gap 9 (3-11); BUN Creatinine Ratio 11.9 (10-20); Bilirubin,Total 0.8 mg/dl (0.2-1.0); Blood Urea Nitrogen 18 mg/dl (6-23); Calcium 9.9 mg/dl (8.5-10.1); Carbon Dioxide 27 mmol/L (21-32); Chloride 100 mmol/L (98-107); Creatinine Clr Calc Pharmacy 66.4 ml/min; Est GFR (Non-African American) 49.1 ml/min; Glucose 119 mg/dl (70-99(Fasting)); Sodium 136 mmol/L (136-145); Total Protein 8.2 gm/dl (6.0-8.3)
[2022-08-14 02:55] LABS: Potassium 3.9 mmol/L (3.5-5.1)
[2022-08-14] MEDS ORDERED: SODIUM CHLORIDE 0.9% 1000ML 1,000 ML IV ONE (03:24)
[2022-08-14] MEDS ORDERED: AMPICILLIN/SULBACTAM SOD 3,000 MG in 0.9 % SODIUM CHLORIDE 100 ML IV STA (03:25)
--- NOTE | 2022-08-14 07:07 | Emergency Department Note ---
Impression & Plan Acute UTI, Acute renal insufficiency Admit to the [facility] ED Provider Note NAME: JOY BAGLEY AGE: 61 SEX: M ARRIVES VIA: Walk-In INFORMANT: Patient ED PROVIDER(S): Nataliya Akbar DO CHIEF COMPLAINT: Hematuria PLAN: Disposition: Admit to [facility] Condition: Fair MEDICAL DECISION MAKING: This is a 61-year-old male patient who presents to the emergency department with hematuria. The patient was recently admitted to the hospital for sepsis following pyelonephritis. He had been treated in the hospital on IV antibiotic therapy and transition to oral antibiotics and then discharged home. He had just finished up a course of amoxicillin yesterday but developed hematuria last night into today. Urinalysis here shows evidence of recurrent UTI and an elevated creatinine. I discussed the case with the [facility] and they will evaluate for fu rther inpatient care and IV antibiotic therapy. He was started back on IV Unasyn. Triage Nursing notes reviewed and agree with them. Prior medical records reviewed from his most recent hospitalization. Vital Signs: reviewed and unremarkable Differential diagnosis: Recurrent sepsis; outpatient oral antibiotic therapy failure; cystitis; pyelonephritis; DANITZA ER treatment provided: IV normal saline IV Unasyn Diagnostics interpreted by me: Cardiac Monitoring: Normal sinus rhythm at a rate of 78 Laboratory studies: See below HPI: 61/M arrives for evaluation of hematuria. Patient noticed some tightness in his abdomen and developed painless hematuria. Patient had been discharged from the hospital last week after a bout of pyelonephritis and sepsis. Patient had an indwelling ureteral stents since October that had been removed back in early July and then developed pyelonephritis and sepsis. ROS: See above HPI for pertinent positives & negatives. A total of 10 systems reviewed and were otherwise negative. PAST MEDICAL HISTORY:See Below PAST SURGICAL HISTORY:See Below FAMILY HISTORY:See Below SOCIAL HISTORY:See Below HOME MEDICATIONS:See list ALLERGIES:See list VITALS:See Below PHYSICAL EXAMINATION: HEENT: Head - normocephalic and atraumatic Pupils are equal, round, and reactive to light. Extraocular eye muscles are intact, and sclera are anicteric. Nose - moist nasal mucosa without discharge. Mouth - moist buccal mucosa. Oropharynx is nonerythematous and there is no tonsillar exudate or edema noted. Neck: Supple; no JVD or cervical lymphadenopathy Heart: Regular rate and rhythm. There is a normal S1 and S2 with no murmurs, clicks, or gallops appreciated. Lungs: Clear to auscultation bilaterally with no wheezes, rales, or rhonchi. Abdomen: Soft, completely nontender, nondistended, with good bowel sounds. There are no palpable pulsatile masses or hepatosplenomegaly. There is no guarding, rigidity, or rebound noted. Extremities: No evidence of cyanosis, clubbing, or edema. There are easily palpable peripheral pulses. Skin: warm and dry with good turgor and no rashes. ED COURSE: Times/Reassessments: The patient was evaluated in room B 11. A complete history and physical was performed. Multiple previous electronic medical records were reviewed. By protocol, an IV lock was initiated and labs were drawn as above. Urinalysis was obtained. Patient was bolused with IV normal saline solution. He denied any pain. An order was placed for continuous cardiac monitoring. He was in a normal sinus rhythm at a rate of 78. I reviewed previous urine cultures. He was started on IV Unasyn. I discussed the case with the [facility] and they will evaluate for further management. Nataliya Akbar DO Past Med/Surg History Medical History (Updated 08/14/22 @ 07:07 by Nataliya Akbar DO) Aortic aneurysm An infrarenal abdominal aortic aneurysm measures 4.6 x 3.8 cm per 09/2021, stable x 10+ years per pt, under surveillance by [facility] vascular- per 12/2021 office visit, recommend f/u one year History of cardiac murmur as a child History of kidney stones HLD (hyperlipidemia) HTN (hypertension) Hx of fracture of rib 11/2021, from fall Prediabetes Sleep apnea CPAP Surgical History History of colonoscopy History of cystoscopy History of lithotripsy History of tooth extraction S/P ureteral stent placement Family History Father Hypertension Heart disease Other Cancer No family history of adverse response to anesthesia Social History Smoking Status: Never smoker Second Hand Exposure: No; Hx Alcohol Use: No Hx Substance Use: No Preferred Language: Georgian Communication Ability: Effective Visual Impairment: No Limitations Director Of Sales Marketing Required: No Beliefs That Will Affect Care: None Current Living Situation: Spouse Other Information That Helps Us Care for You: No Feels Safe at Home: Yes Safety Concerns: Feels Safe At This Time Assistive Devices: None, CPAP and Glasses Allergies Allergies Allergy/AdvReac Type Severity Reaction Status Date / Time ASHLEY Inhibitors Allergy Severe ANGIOEDEMA-LOSARTAN Verified 07/28/22 17:09 POTASSIUM ARB-Angiotensin Receptor Allergy Severe ANGIOEDEMA-LOSARTAN Verified 07/28/22 17:09 Antagonist POTASSIUM Home Meds Home Medications Medication Instructions Recorded Confirmed hydrochlorothiazide 25 mg tablet 25 mg PO QAM 03/30/20 07/28/22 metoprolol succinate 100 mg 200 mg PO QAM 03/30/20 07/28/22 tablet,extended release 24 hr (Toprol XL) cholecalciferol (vitamin D3) 50 50 mcg PO WK 12/07/21 07/28/22 mcg (2,000 unit) capsule (Vitamin D3) coenzyme Q10 100 mg capsule 100 mg PO WK 12/07/21 07/28/22 (CoQ-10) sildenafil (pulm.hypertension) 20 20 - 100 mg PO DIRECTED PRN 12/07/21 07/28/22 mg tablet Erectile Dysfunction metformin 500 mg tablet 500 mg PO DAILYBD 07/28/22 07/28/22 atorvastatin 80 mg tablet 80 mg PO DAILY 08/14/22 08/14/22 Previous Rx's Medication Instructions Recorded tamsulosin 0.4 mg capsule 0.4 mg PO HS #30 caps 07/20/22 apixaban 5 mg tablet (Eliquis) 5 mg PO BID #60 tabs 08/01/22 diltiazem HCl 120 mg 120 mg PO DAILY #30 caps 08/01/22 capsule,extended release 24 hr (Cardizem CD) lactobacillus combination no.4 3 3,000 mmu cells PO DAILY 2 weeks 08/01/22 billion cell capsule (Probiotic) #14 caps Results & Data (ED) Vital Signs Vital Signs - 24 hr 08/13/22 21:00 08/14/22 02:07 08/14/22 04:24 Temperature 36.5 C Temperature Source Temporal Artery Scan Pulse Rate 75 Pulse Rate [Finger] 79 76 Respiratory Rate 18 20 20 Respiratory Effort / Characteristics Non-Labored Spontaneous Non-Labored Spontaneous Respiratory Depth Normal Normal Normal Blood Pressure 161/93 H Blood Pressure [Left Arm] 147/84 H 148/95 H Blood Pressure Mean 115 Blood Pressure Mean [Left Arm] 105 112 Blood Pressure Position [Left Arm] Sitting Sitting Pulse Oximetry 95 98 96 Oxygen Delivery Method Room Air Room Air Room Air Sepsis Recent Fever Within 48 Hours No Sepsis New/Unexplained Change in Mental Status N/A Sepsis Action Taken by Nursing No Action Required 08/14/22 06:01 Temperature Temperature Source Pulse Rate Pulse Rate [Finger] 85 Respiratory Rate 20 Respiratory Effort / Characteristics Non-Labored Spontaneous Respiratory Depth Normal Blood Pressure Blood Pressure [Left Arm] 148/95 H Blood Pressure Mean Blood Pressure Mean [Left Arm] 112 Blood Pressure Position [Left Arm] Sitting Pulse Oximetry 95 Oxygen Delivery Method Room Air Sepsis Recent Fever Within 48 Hours Sepsis New/Unexplained Change in Mental Status Sepsis Action Taken by Nursing Laboratory Data Result diagrams: 08/13/22 22:51 08/14/22 02:22 Lab Results 08/13/22 08/13/22 08/13/22 Range/Units 22:51 22:51 22:51 WBC 8.33 (4.8-10.8) K/ul RBC 4.92 (4.63-6.08) M/uL Hgb 14.7 (14.0-18.0) g/dl Hct 43.3 (40.1-51.0) % MCV 88.0 (80.0-100.0) fL MCH 29.9 (25.0-34.0) pg MCHC 33.9 (32.0-36.0) g/dL RDW Std Deviation 41.5 (36.4-46.3) fL RDW Coeff of Marcio 13.1 (11.5-14.5) % Plt Count 282 (130-400) K/uL MPV 9.3 L (9.4-12.4) fL Immature Gran % (Auto) 0.8 % Neut % (Auto) 54.9 % Lymph % (Auto) 32.5 % Hickman % (Auto) 7.9 % Eos % (Auto) 3.1 % Baso % (Auto) 0.8 % Neut # (Auto) 4.56 (1.4-6.5) K/uL Lymph # (Auto) 2.71 (1.2-3.4) K/uL Hickman # (Auto) 0.66 (0.24-0.82) K/uL Eos # (Auto) 0.26 (0-0.50) K/uL Baso # (Auto) 0.07 (0-0.2) K/uL Immature Gran # (Auto) 0.07 H (0.00-0.02) K/uL Sodium 136 (136-145) mmol/L Potassium TNP Chloride 100 (98-107) mmol/L Carbon Dioxide 27 (21-32) mmol/L Anion Gap 9 (3-11) BUN 18 (6-23) mg/dl Creatinine 1.51 H (0.6-1.4) mg/dl Est Cr Clr Drug Dosing 66.4 ml/min Est GFR ( Amer) 57.0 ml/min Est GFR (Non-Af Amer) 49.1 ml/min BUN/Creatinine Ratio 11.9 (10-20) Glucose 119 H (70-99(Fasting)) mg/dl Calcium 9.9 (8.5-10.1) mg/dl Total Bilirubin 0.8 (0.2-1.0) mg/dl AST TNP ALT 31 (7-52) U/L Alkaline Phosphatase 126 H (34-104) U/L Total Protein 8.2 (6.0-8.3) gm/dl Albumin 4.2 (3.4-5.0) gm/dl Globulin 4.0 (2.5-4.0) gm/dl Albumin/Globulin Ratio 1.1 (0.9-2) Urine Color Red Urine Appearance Cloudy A (Clear) Urine pH 5.0 (4.5-7.5) Ur Specific [place] 1.020 (1.000-1.030) Urine Protein 3+ H (Negative) Urine Glucose (UA) Negative (Negative) Urine Ketones Negative (Negative) Urine Blood 3+ H (Negative) Urine Nitrite Positive A (Negative) Urine Bilirubin 1+ H (Negative) Urine Urobilinogen Negative (Negative) Ur Leukocyte Esterase 1+ H (Negative) Urine WBC (Auto) 10-30 H (0-5) /hpf Urine RBC (Auto) >30 H (0-4) /hpf U Hyaline Cast (Auto) 0 (0-5) /lpf U Epithel Cells (Auto) 20-30 H (0-5) /lpf Urine Bacteria (Auto) Negative (Negative) Urine Crystals Not Reportable Urine Yeast Budding A (None Prsent) 08/14/22 Range/Units 02:22 WBC (4.8-10.8) K/ul RBC (4.63-6.08) M/uL Hgb (14.0-18.0) g/dl Hct (40.1-51.0) % MCV (80.0-100.0) fL MCH (25.0-34.0) pg MCHC (32.0-36.0) g/dL RDW Std Deviation (36.4-46.3) fL RDW Coeff of Marcio (11.5-14.5) % Plt Count (130-400) K/uL MPV (9.4-12.4) fL Immature Gran % (Auto) % Neut % (Auto) % Lymph % (Auto) % Hickman % (Auto) % Eos % (Auto) % Baso % (Auto) % Neut # (Auto) (1.4-6.5) K/uL Lymph # (Auto) (1.2-3.4) K/uL Hickman # (Auto) (0.24-0.82) K/uL Eos # (Auto) (0-0.50) K/uL Baso # (Auto) (0-0.2) K/uL Immature Gran # (Auto) (0.00-0.02) K/uL Sodium (136-145) mmol/L Potassium 3.9 Chloride (98-107) mmol/L Carbon Dioxide (21-32) mmol/L Anion Gap (3-11) BUN (6-23) mg/dl Creatinine (0.6-1.4) mg/dl Est Cr Clr Drug Dosing ml/min Est GFR ( Amer) ml/min Est GFR (Non-Af Amer) ml/min BUN/Creatinine Ratio (10-20) Glucose (70-99(Fasting)) mg/dl Calcium (8.5-10.1) mg/dl Total Bilirubin (0.2-1.0) mg/dl AST 22 ALT (7-52) U/L Alkaline Phosphatase (34-104) U/L Total Protein (6.0-8.3) gm/dl Albumin (3.4-5.0) gm/dl Globulin (2.5-4.0) gm/dl Albumin/Globulin Ratio (0.9-2) Urine Color Urine Appearance (Clear) Urine pH (4.5-7.5) Ur Specific [place] (1.000-1.030) Urine Protein (Negative) Urine Glucose (UA) (Negative) Urine Ketones (Negative) Urine Blood (Negative) Urine Nitrite (Negative) Urine Bilirubin (Negative) Urine Urobilinogen (Negative) Ur Leukocyte Esterase (Negative) Urine WBC (Auto) (0-5) /hpf Urine RBC (Auto) (0-4) /hpf U Hyaline Cast (Auto) (0-5) /lpf U Epithel Cells (Auto) (0-5) /lpf Urine Bacteria (Auto) (Negative) Urine Crystals Urine Yeast (None Prsent) Administered Medications Diltiazem HCl (Diltiazem Hcl 120 Mg Capcr) 120 mg PO DAILY ADILENE Stop: 09/13/22 08:59 Last Admin: 08/14/22 09:54 Dose: 120 mg Documented By: LAUREN Sodium Chloride (Nss 1000ml) 1,000 mls @ 100 mls/hr IV .Q10H ADILENE Stop: 09/13/22 08:55 Last Admin: 08/14/22 09:54 Dose: 100 mls/hr Documented By: LAUREN Insulin Aspart (Insulin Aspart Per Unit) 0 units SC ACHS ADILENE Stop: 09/13/22 08:55 Last Admin: 08/14/22 13:58 Dose: Not Given Documented By: Admin: 08/14/22 09:40 Dose: Not Given Documented By: LAUREN Lactobacillus Acidophilus (Advanced Probiotic 1250 Mg Capsule) 2 cap PO DAILY ADILENE Stop: 09/13/22 08:59 Last Admin: 08/14/22 09:54 Dose: 2 cap Documented By: LAUREN Metoprolol Succinate (Metoprolol Succ 50mg Ext Rel Tab) 200 mg PO QAM ADILENE Stop: 09/13/22 08:59 Last Admin: 08/14/22 09:54 Dose: 200 mg Documented By: LAUREN Discontinued Medications Sodium Chloride (Nss 1000ml) 1,000 mls @ 999 mls/hr IV .Q1H1M ONE Stop: 08/14/22 04:24 Last Infusion: 08/14/22 04:54 Dose: 0 mls/hr Documented By: Admin: 08/14/22 03:39 Dose: 999 mls/hr Documented By: ISAIAH Ampicillin Sodium/Sulbactam Sodium 3,000 mg/ Sodium Chloride 108 mls @ 200 mls/hr IV NOW STA; Protocol Stop: 08/14/22 03:57 Last Infusion: 08/14/22 04:16 Dose: 0 mls/hr Documented By: Admin: 08/14/22 03:38 Dose: 200 mls/hr Documented By: ISAIAH Piperacillin Sod/Tazobactam (Sod 3.375 gm/ Dextrose) 115 mls @ 28.75 mls/hr IV Q8H ADILENE; Protocol Stop: 08/24/22 08:59 Last Admin: 08/14/22 10:13 Dose: Not Given Documented By: LAUREN Piperacillin Sod/Tazobactam (Sod 3.375 gm/ Dextrose) 115 mls @ 230 mls/hr IV NOW ONE; Protocol Stop: 08/14/22 10:14 Last Infusion: 08/14/22 13:59 Dose: 0 mls/hr Documented By: Admin: 08/14/22 10:13 Dose: 230 mls/hr Documented By: LAUREN Discharge Plan Visit Data Chief Complaint: Hematuria Stated Complaint: DISCHARGED LAST SAT. BLOOD IN URINE ED Provider: Nataliya Akbar Discharge Problem: Acute UTI, Acute renal insufficiency Patient Disposition: Admitted As Inpatient Discharge Instructions Interventions: ED Discharge Assessment Last Done: 08/14/22 08:27
--- NOTE | 2022-08-14 08:27 | History and Physical Report ---
DATE OF ADMISSION: 08/14/2022. CHIEF COMPLAINT: Hematuria. HISTORY OF PRESENT ILLNESS: A 61-year-old male with past medical history significant for type 2 diabetes, hyperlipidemia, obstructive sleep apnea, on CPAP, abdominal aortic aneurysm, hypertension, chronic kidney disease stage III, umbilical hernia, presents with hematuria. The patient says he noticed this dark red colored urine, which bothered him and he came to the hospital. The patient was recently in the hospital with bacteremia, pyelonephritis and sepsis and was treated in the hospital with IV antibiotics and discharged home on amoxicillin, which he completed. It was Enterococcus bacteremia. The patient says he has no abdominal pain, no fevers, no other complaints, resting comfortably. Slight sore throat, slight cough, no headache, no blurred visions, no earache, no runny nose. Appetite is okay. No difficulty swallowing. No chest pain, no shortness of breath, no nausea, no abdominal pain. Normal bowel movements. Hemodynamically stable. ALLERGIES: LOSARTAN. PAST MEDICAL HISTORY: As mentioned above. PAST SURGICAL HISTORY: Colonoscopy, dental surgery, removal of pilonidal cyst, cystoscopy with stent placement, which was removed. MEDICATIONS: Currently, the patient is on Eliquis 5 mg p.o. b.i.d., atorvastatin 80 mg p.o. daily, vitamin D 50mcg p.o. weekly, diltiazem 120 mg p.o. daily and hydrochlorothiazide 25 mg p.o. daily, lactobacillus daily, metformin 500 mg p.o. daily, metoprolol succinate 100 mg p.o. daily, Flomax 0.4 mg p.o. at bedtime. FAMILY HISTORY: Significant for mother has breast cancer; father has heart disorder, pacemaker; mother has hypertension. SOCIAL HISTORY: . No smoking. Alcohol, 1-2 per week. No drugs. REVIEW OF SYSTEMS: As per HPI. Rest of review of systems is negative. PHYSICAL EXAMINATION: GENERAL: The patient is morbidly obese, not in acute distress. VITAL SIGNS: Temperature 36.5, pulse 85, respiratory rate 20, blood pressure 148/95, oxygen 95% on room air. HEENT: Pupils equal, round and reactive to light. Oral mucosa moist. NECK: No JVD. No neck masses. CARDIOVASCULAR: S1 and S2 heard. Regular rate and rhythm. No murmur, no gallop. RESPIRATORY SYSTEM: Normal AP diameter. No accessory muscle use. No wheezing, no crackles. ABDOMEN: Soft, bowel sounds present, nontender, no distention. CENTRAL NERVOUS SYSTEM: Cranial nerves II-XII grossly intact, nonfocal. EXTREMITIES: No edema, no erythema. LABORATORY DATA: WBC 8.3, hemoglobin 14.7, hematocrit 43.3, platelets 282. Sodium 136, potassium 3.9, chloride 100, bicarbonate 27, BUN 18, creatinine 1.5, serum glucose 119, calcium 9.9, total bilirubin 0.8, AST 22, ALT 31, alkaline phosphatase 126. Urinalysis, +3 blood, positive for nitrite, positive for leukocyte esterase. SARS-CoV-2 for rapid test positive. ASSESSMENT AND PLAN: This is a 61-year-old male who presents with hematuria. 1. Hematuria, recently had a UTI with bacteremia, pyelonephritis with Enterococcus bacteremia, finished a course of amoxicillin. Today, again he had some hematuria. In the ER, after fluids his hematuria is improving. We will consult Urology. Empirically start him on Zosyn. Follow the cultures. We will hold his Eliquis. 2. A fib. Last admission, he had new onset of atrial fibrillation. He is on metoprolol and Cardizem. Rate is under control. Holding his Eliquis for hematuria, restart as soon as possible. Need to follow up with Cardiology. 3. Acute kidney injury with creatinine 1.5. Will hold on his hydrochlorothiazide. We will follow the labs. Gentle fluids. 4. Bilateral kidney stones in last admission. Has a followup appointment with Urology on 08/31/2022.Consult urology. 5. Hyperlipidemia: On statin. 6. Hypertension: On amlodipine, metoprolol. Holding hydrochlorothiazide for acute kidney injury. We will monitor the blood pressure. 7. History of aortic aneurysm. Needs to follow up. 8. History of sleep apnea: CPAP at bedtime. 9. Deep venous thrombosis prophylaxis: We will place on sequential compression devices for now. DISPOSITION: Closely monitor in the medical floor. PT/OT prior to discharge. Social service to help with discharge planning. Level 1 full code. Job ID: [id number] [facility]
[2022-08-14] MEDS ORDERED: POLYETHYLENE (MIRALAX) 17 GM PACK PO PRN (08:56)
[2022-08-14] MEDS ORDERED: ACETAMINOPHEN 325 MG TAB PO PRN (08:56)
[2022-08-14] MEDS ORDERED: PIPERACILLIN/TAZOBACTAM 3.375 GM in DEXTROSE 5% 100 ML IV SCH (09:00)
[2022-08-14] MEDS: INSULIN ASPART PER UNIT SC SCH ×4 (09:40→20:56)
[2022-08-14] MEDS ORDERED: PIPERACILLIN/TAZOBACTAM 3.375 GM in DEXTROSE 5% 100 ML IV ONE (09:45)
[2022-08-14] MEDS: SODIUM CHLORIDE 0.9% 1000ML 1,000 ML IV SCH ×2 (09:54→18:00)
[2022-08-14] MEDS: METOPROLOL SUCC 50MG EXT REL TAB PO SCH (09:54)
[2022-08-14] MEDS: ADVANCED PROBIOTIC 1250 MG CAPSULE PO SCH (09:54)
[2022-08-14] MEDS: dilTIAZem HCL 120 MG CAPCR PO SCH (09:54)
--- NOTE | 2022-08-14 12:33 | Communication Note ---
Date of Service: August 14, 2022 Patient seen and examined. History notable for recent hospitalization 2 weeks ago for sepsis, bacteremia, pyelonephritis likely related to recent neurological procedure for which she was treated with antibiotics. Presents with hematuria that started prior to presentation. Reports urine is currently clear. Denied any dysuria, frequency, fevers or chills. Physical exam notable for obese man in no obvious distress, no CVA or suprapubic tenderness Labs notable for positive COVID testUA noted positive urine nitrite, leukocyte esterase, WBC of 10-30 Creatinine 1.51 COVID-19 infection, Hematuria. Possible UTI. Reports only slight cough and on room air. No COVID specific therapies at this time. Hematuria. Related to possible UTI plus or minus Eliquis started during last hospitalization for A. fib. Continue to hold Eliquis for today. Consider resuming tomorrow monitoring. Follow-up urine culture Continue Zosyn for now pending urine culture. Agree with other plans as detailed in H&P by Dr Rosenthal this AM
--- NOTE | 2022-08-14 14:58 | Urology Consultation ---
Date of Consultation August 14, 2022 Assessment & Plan (1) Acute UTI: (2) DANITZA (acute kidney injury): Plan 61yo M admitted with suspected UTI, hematuria, DANITZA and also found to be Covid positive. -Afebrile and hemodynamically stable. -Labs reviewed-no leukocytosis, hemoglobin stable, creatinine 1.51. Continue to trend. -Urine culture pending, on IV Zosyn. -Voiding without issue, reports urine is now clear yellow. Continue to monitor. -Continue antibiotics and tailor as culture data comes available. -Continue supportive care. -Anticoagulation on hold per primary team. -Urology will follow. History of Present Illness Attending Physician: Joyce Cook MD History of Present Illness 61-year-old male with past medical history significant for type 2 diabetes, hyperlipidemia, obstructive sleep apnea, on CPAP, abdominal aortic aneurysm, hypertension, chronic kidney disease stage III, umbilical hernia admitted with suspected UTI, hematuria, and DANITZA. Upon arrival to the ED, he was afebrile and hemodynamically stable. No leukocytosis, hemoglobin stable, creatinine 1.51. Urinalysis with 3+ blood, positive nitrite, 1+ LE, negative bacteria. Patient was started on IV antibiotics and admitted to medicine for further management. Urology consulted for hematuria. Patient reported noticing dark red urine, which concerned him and prompted his arrival to the emergency room. He was recently in the hospital with bacteremia, pyelonephritis and sepsis and was treated in the hospital with IV antibiotics and discharged home on amoxicillin, which he completed, for Enterococcus bacteremia. Patient examined at bedside in the ED today. Awake, resting bed on arrival. On isolation for COVID. No acute distress. Denies any pain or discomfort. No fevers or chills. No nausea or vomiting. States he is voiding without issue. Hematuria has cleared. No dysuria. Feels he is emptying his bladder. No additional complaints at time of exam Allergies Allergy/AdvReac Type Severity Reaction Status Date / Time ASHLEY Inhibitors Allergy Severe ANGIOEDEMA-LOSARTAN Verified 07/28/22 17:09 POTASSIUM ARB-Angiotensin Receptor Allergy Severe ANGIOEDEMA-LOSARTAN Verified 07/28/22 17:09 Antagonist POTASSIUM Home Medications Medication Instructions Recorded Confirmed Type hydrochlorothiazide 25 mg tablet 25 mg PO QAM 03/30/20 07/28/22 History metoprolol succinate 100 mg 200 mg PO QAM 03/30/20 07/28/22 History tablet,extended release 24 hr (Toprol XL) cholecalciferol (vitamin D3) 50 50 mcg PO WK 12/07/21 07/28/22 History mcg (2,000 unit) capsule (Vitamin D3) coenzyme Q10 100 mg capsule 100 mg PO WK 12/07/21 07/28/22 History (CoQ-10) sildenafil (pulm.hypertension) 20 20 - 100 mg PO DIRECTED PRN 12/07/21 07/28/22 History mg tablet Erectile Dysfunction tamsulosin 0.4 mg capsule 0.4 mg PO HS #30 caps 07/20/22 07/28/22 Rx metformin 500 mg tablet 500 mg PO DAILYBD 07/28/22 07/28/22 History apixaban 5 mg tablet (Eliquis) 5 mg PO BID #60 tabs 08/01/22 Rx diltiazem HCl 120 mg 120 mg PO DAILY #30 caps 08/01/22 Rx capsule,extended release 24 hr (Cardizem CD) lactobacillus combination no.4 3 3,000 mmu cells PO DAILY 2 weeks 08/01/22 Rx billion cell capsule (Probiotic) #14 caps atorvastatin 80 mg tablet 80 mg PO DAILY 08/14/22 08/14/22 History Patient History Medical History Aortic aneurysm An infrarenal abdominal aortic aneurysm measures 4.6 x 3.8 cm per 09/2021, stable x 10+ years per pt, under surveillance by [facility] vascular- per 12/2021 office visit, recommend f/u one year History of cardiac murmur as a child History of kidney stones HLD (hyperlipidemia) HTN (hypertension) Hx of fracture of rib 11/2021, from fall Prediabetes Sleep apnea CPAP Surgical History History of colonoscopy History of cystoscopy History of lithotripsy History of tooth extraction S/P ureteral stent placement Family History Father Hypertension Heart disease Other Cancer No family history of adverse response to anesthesia Social History Smoking Status: Never smoker Second Hand Exposure: No; Hx Alcohol Use: No Hx Substance Use: No Preferred Language: Qatari Communication Ability: Effective Visual Impairment: No Limitations 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 Required: No Beliefs That Will Affect Care: None Current Living Situation: Spouse Other Information That Helps Us Care for You: No Feels Safe at Home: Yes Safety Concerns: Feels Safe At This Time Assistive Devices: None, CPAP and Glasses Review of Systems Review of Systems: All systems reviewed & are unremarkable except as noted in HPI & below Physical Exam Constitutional: well developed and well nourished; no acute distress and not ill appearing Eyes: PERRL, conjunctivae normal, anicteric sclerae ENMT: external ear and nose normal, oropharynx normal Neck: normal visual inspection Respiratory: no respiratory distress and no labored breathing Gastrointestinal (Abdomen): Percussion/Palpation: abdomen soft; abdomen nontender Musculoskeletal: Head/Neck/Chest: normocephalic Skin: No visible rashes or lesions to exposed skin areas Neurologic: moves all extremities and awake Psychiatric: Orientation: alert, oriented x 3 and cooperative Results & Data ([facility]) Vital Signs (Past 12 Hours) Vital Signs Pulse Resp BP Pulse Ox O2 Del Method 08/14/22 09:55 86 18 160/109 H 96 Room Air 08/14/22 06:01 85 20 148/95 H 95 Room Air 08/14/22 04:24 76 20 148/95 H 96 Room Air 08/14/22 02:07 79 20 147/84 H 98 Room Air PG Care Time/CCT Total # of Minutes Spent Total Time Spent with Patient: Total time spent is greater than 50% in coordination of care (as documented) at patient's floor/unit and/or counseling patient: Coding Level of Care Code 24398 Inpt Consult Level 3 Diagnoses Acute UTI N39.0 DANITZA (acute kidney injury) N17.9
[2022-08-14] MEDS: PIPERACILLIN/TAZOBACTAM 3.375 GM in DEXTROSE 5% 100 ML IV SCH ×2 (15:48→22:02)
[2022-08-14] MEDS ORDERED: Flu Vaccine (Fluarix) 0.5mL SYR (Standard Dose) IM ONE (17:30)
[2022-08-14] MEDS: TAMSULOSIN HCL 0.4 MG CAP PO SCH (22:03)
[2022-08-15] MEDS: SODIUM CHLORIDE 0.9% 1000ML 1,000 ML IV SCH ×2 (04:09→14:05)
[2022-08-15] MEDS: PIPERACILLIN/TAZOBACTAM 3.375 GM in DEXTROSE 5% 100 ML IV SCH ×3 (06:07→23:38)
[2022-08-15 06:09] LABS: Basophils # (auto) 0.06 K/uL (0-0.2); Basophils % (auto) 0.7 %; Eosinophils # (auto) 0.29 K/uL (0-0.50); Eosinophils % (auto) 3.4 %; Hemoglobin 14.1 g/dl (14.0-18.0); Immature Granulocytes # (auto) 0.06 K/uL (0.00-0.02); Immature Granulocytes % (auto) 0.7 %; Lymphocytes # (auto) 2.03 K/uL (1.2-3.4); Lymphocytes % (auto) 23.8 %; Mean Corpuscular Hemoglobin 29.7 pg (25.0-34.0); Mean Corpuscular Hgb Conc 34.4 g/dL (32.0-36.0); Mean Corpuscular Volume 86.5 fL (80.0-100.0); Monocytes # (auto) 0.55 K/uL (0.24-0.82); Monocytes % (auto) 6.5 %; Neutrophils # (auto) 5.53 K/uL (1.4-6.5); Neutrophils % (auto) 64.9 %; Platelet Count 265 K/uL (130-400); RDW Standard Deviation 40.6 fL (36.4-46.3); Red Blood Count 4.74 M/uL (4.63-6.08); White Blood Count 8.52 K/ul (4.8-10.8)
[2022-08-15 06:40] LABS: BUN Creatinine Ratio 12.3 (10-20); Calcium 9.1 mg/dl (8.5-10.1); Creatinine Clr Calc Pharmacy 72.7 ml/min; Est GFR (African American) 63.5 ml/min; Est GFR (Non-African American) 54.8 ml/min; Magnesium 1.8 mg/dl (1.7-2.4); Potassium 3.7 mmol/L (3.5-5.1)
--- NOTE | 2022-08-15 08:31 | Urology Progress Note ---
Date of Service August 15, 2022 Assessment & Plan (1) Acute UTI: (2) DANITZA (acute kidney injury): Plan 61yo M admitted with suspected UTI, hematuria, DANITZA and also found to be Covid positive. -Afebrile and hemodynamically stable. -Labs reviewed-no leukocytosis, hemoglobin stable, creatinine 1.38 today. -Urine culture pending, on IV Zosyn. -Voiding without issue, reports urine is clear yellow. Continue to monitor. -Continue antibiotics and tailor as culture data becomes available. -Continue supportive care. -Anticoagulation per primary team. -Will plan for imaging and outpatient follow-up as scheduled on 08/[address] Contreras. -Urology will sign-off for now. Please contact us with any further questions, concerns, or changes in patient status. Admission and Anticipated Discharge Date Admission Date: August 14, 2022 Supervising Physician Co-Signing Physician Notes Discussed patient with JOSE. Agree with plan. Subjective Patient examined at bedside this AM. Awake, sitting in bedside chair on arrival. No acute distress. Reports he is feeling well overall. Denies any pain or discomfort. Denies fevers or chills. No nausea or vomiting. Voiding without issue, reports urine is clear yellow. Feels he is emptying his bladder well. No dysuria. Review of Systems Constitutional: as per Subjective / HPI Genitourinary: + as per Subjective / HPI Physical Exam Constitutional: cooperative and comfortable; no acute distress Respiratory: no respiratory distress and no labored breathing Neurologic: awake Psychiatric: A+Ox3, euthymic affect Results & Data ([facility]) Vital Signs (Past 12 Hours) Vital Signs Temp Pulse Pulse Resp BP Pulse Ox O2 Del Method 08/15/22 02:35 90 20 96 08/15/22 00:22 94 H 18 96 08/14/22 22:15 36.5 C 89 16 168/97 H 96 Room Air FiO2 08/15/22 02:35 21 08/15/22 00:22 21 08/14/22 22:15 PG Care Time/CCT Total # of Minutes Spent Total Time Spent with Patient: Total time spent is greater than 50% in coordination of care (as documented) at patient's floor/unit and/or counseling patient: Coding Level of Care Code 26844 Subseq Hosp Care Lvl 2 Diagnoses Acute UTI N39.0 DANITZA (acute kidney injury) N17.9
[2022-08-15] MEDS: INSULIN ASPART PER UNIT SC SCH ×3 (08:44→16:55)
[2022-08-15] MEDS: dilTIAZem HCL 120 MG CAPCR PO SCH (08:49)
[2022-08-15] MEDS: METOPROLOL SUCC 50MG EXT REL TAB PO SCH (08:51)
[2022-08-15] MEDS: ADVANCED PROBIOTIC 1250 MG CAPSULE PO SCH (08:51)
[2022-08-15] MEDS ORDERED: CARBOHYDRATES FOR HYPOGLYCEMIA PO PRN (09:45)
[2022-08-15] MEDS ORDERED: DEXTROSE 50% 50 ML SYRINGE IV PRN (09:45)
[2022-08-15] MEDS ORDERED: GLUCOSE 10 TAB/TUBE PO PRN (09:45)
[2022-08-15] MEDS ORDERED: GLUCAGON FOR INJ 1 MG VIAL IM PRN (09:45)
[2022-08-15] MEDS ORDERED: GLUCOSE 40% GEL 15 GM TUBE PO PRN (09:45)
--- NOTE | 2022-08-15 15:35 | Hospitalist Progress Note ---
Date of Service August 15, 2022 Assessment & Plan (1) Hematuria: Plan: He was recently admitted for UTI with bacteremia, pyelonephritis with Enterococcus bacteremia He had some hematuria. received IVF, now urine is cleared Hgb stable at 14.[address] on hold, will resume today Urology on board recommended to continue supportive care. Continue monitor while on Eliquis Continue monitor cbc Urology outpatient follow-up as scheduled on 08/[address] Contreras. COVID 19 Asymptomatic Saturated well on RA No indicationto start on dexamethasone and Remdesivir Stable Abnormal UA Urine cx pending Continue IV zosyn for now Afib Rate control Continue Metoprolol and cardizem Eliquis was placed on hold due to hematuria Will resume Eliquis today . Acute kidney injury Creatinine 1.5 on admission Continue to hold hydrochlorothiazide. Continue IVF Creatinine improved to 1.3 Continue monitor BMP Bilateral kidney stones Outpatient follow up appointment with Urology on 08/31/2022. Hyperlipidemia Continue statin. Hypertension Continue amlodipine, metoprolol. Continue to hold hydrochlorothiazide for elevating creatinine Continue monitor BP History of sleep apnea Continue CPAP at bedtime. DVT px on SCDs due to hematuria Will resume Eliquis today Code status Full code Admission and Anticipated Discharge Date Admission Date: August 14, 2022 Subjective Pt was seen and examined for hematuria Sitting in chair with no acute distress Pt said that he feels fine He said that his urine his clear Denies any chest pain, palpitation, dizziness and SOB Review of Systems Review of Systems: All systems reviewed & are unremarkable except as noted in Subjective Physical Exam Physical Exam: General- No acute distress Head- atraumatic Eyes- PERRL, EOMI, ENT- oropharynx clear Neck- supple, no JVD Lungs- clear to auscultation Heart- no murmur Abdomen- normal bowel sounds, soft, nontender Extremities- no calf tenderness Neuro- alert, oriented x 3; PERRL, EOMI; no facial palsy; no dysarthria Skin- warm & dry Results & Data Results & Data ([facility]) Vital Signs (Past 12 Hours) Vital Signs Temp Pulse Resp BP Pulse Ox O2 Del Method 08/15/22 08:30 36.8 C 88 18 159/90 H 95 Room Air
[2022-08-15] MEDS: TAMSULOSIN HCL 0.4 MG CAP PO SCH (23:38)
[2022-08-15] MEDS: APIXABAN 5 MG TABLET PO SCH (23:38)
[2022-08-16] MEDS: INSULIN ASPART PER UNIT SC SCH ×3 (00:08→11:55)
[2022-08-16] MEDS: PIPERACILLIN/TAZOBACTAM 3.375 GM in DEXTROSE 5% 100 ML IV SCH (05:47)
[2022-08-16 08:03] LABS: Hemoglobin 14.4 g/dl (14.0-18.0); Mean Corpuscular Hemoglobin 29.6 pg (25.0-34.0); Mean Corpuscular Hgb Conc 34.3 g/dL (32.0-36.0); Mean Corpuscular Volume 86.2 fL (80.0-100.0); Mean Platelet Volume 9.3 fL (9.4-12.4); Platelet Count 248 K/uL (130-400); RDW Coefficient of Variation 12.9 % (11.5-14.5); Red Blood Count 4.87 M/uL (4.63-6.08); White Blood Count 7.38 K/ul (4.8-10.8)
[2022-08-16 08:30] LABS: BUN Creatinine Ratio 12.4 (10-20); Calcium 9.7 mg/dl (8.5-10.1); Creatinine Clr Calc Pharmacy 77.8 ml/min; Est GFR (African American) 68.9 ml/min; Est GFR (Non-African American) 59.4 ml/min; Potassium 3.7 mmol/L (3.5-5.1)
[2022-08-16] MEDS: dilTIAZem HCL 120 MG CAPCR PO SCH (09:04)
[2022-08-16] MEDS: METOPROLOL SUCC 50MG EXT REL TAB PO SCH (09:04)
[2022-08-16] MEDS: APIXABAN 5 MG TABLET PO SCH (09:04)
[2022-08-16] MEDS: ADVANCED PROBIOTIC 1250 MG CAPSULE PO SCH (09:04)
--- NOTE | 2022-08-16 11:54 | Discharge Summary ---
Date of Service August 16, 2022 Admission HPI Per Admitting Provider CHIEF COMPLAINT: Hematuria. HISTORY OF PRESENT ILLNESS: A 61-year-old male with past medical history significant for type 2 diabetes, hyperlipidemia, obstructive sleep apnea, on CPAP, abdominal aortic aneurysm, hypertension, chronic kidney disease stage III, umbilical hernia, presents with hematuria. The patient says he noticed this dark red colored urine, which bothered him and he came to the hospital. The anthony sanchez was recently in the hospital with bacteremia, pyelonephritis and sepsis and was treated in the hospital with IV antibiotics and discharged home on amoxicillin, which he completed. It was Enterococcus bacteremia. The patient says he has no abdominal pain, no fevers, no other complaints, resting comfortably. Slight sore throat, slight cough, no headache, no blurred visions, no earache, no runny nose. Appetite is okay. No difficulty swallowing. No chest pain, no shortness of breath, no nausea, no abdominal pain. Normal bowel movements. Hemodynamically stable. Admission Exam Per Admitting Provider GENERAL: The patient is morbidly obese, not in acute distress. VITAL SIGNS: Temperature 36.5, pulse 85, respiratory rate 20, blood pressure 148/95, oxygen 95% on room air. HEENT: Pupils equal, round and reactive to light. Oral mucosa moist. NECK: No JVD. No neck masses. CARDIOVASCULAR: S1 and S2 heard. Regular rate and rhythm. No murmur, no gallop. RESPIRATORY SYSTEM: Normal AP diameter. No accessory muscle use. No wheezing, no crackles. ABDOMEN: Soft, bowel sounds present, nontender, no distention. CENTRAL NERVOUS SYSTEM: Cranial nerves II-XII grossly intact, nonfocal. EXTREMITIES: No edema, no erythema. Principal Diagnosis Hematuria: COVID 19 Abnormal UA History Atrial fibrillation Acute kidney injury Creatinine 1.5 on admission Bilateral kidney stones Hyperlipidemia Hypertension History of sleep apnea Discharge Exam General- No acute distress Head- atraumatic Eyes- PERRL, EOMI, ENT- oropharynx clear Neck- supple, no JVD Lungs- clear to auscultation Heart- no murmur Abdomen- normal bowel sounds, soft, nontender Extremities- no calf tenderness Neuro- alert, oriented x 3; PERRL, EOMI; no facial palsy; no dysarthria Skin- warm & dry Discharge Data Allergies Allergy/AdvReac Type Severity Reaction Status Date / Time ASHLEY Inhibitors Allergy Severe ANGIOEDEMA-LOSARTAN Verified 07/28/22 17:09 POTASSIUM ARB-Angiotensin Receptor Allergy Severe ANGIOEDEMA-LOSARTAN Verified 07/28/22 17:09 Antagonist POTASSIUM Consultations 08/14/22 03:27 ED Decision to Admit Stat 08/14/22 08:56 Consult Urology Routine Ordered Studies Laboratory Results WBC 7.38 K/ul (4.8-10.8) 08/16/22 07:30 RBC 4.87 M/uL (4.63-6.08) 08/16/22 07:30 Hgb 14.4 g/dl (14.0-18.0) 08/16/22 07:30 Hct 42.0 % (40.1-51.0) 08/16/22 07:30 MCV 86.2 fL (80.0-100.0) 08/16/22 07:30 MCH 29.6 pg (25.0-34.0) 08/16/22 07:30 MCHC 34.3 g/dL (32.0-36.0) 08/16/22 07:30 RDW Std Deviation 40.0 fL (36.4-46.3) 08/16/22 07:30 RDW Coeff of Marcio 12.9 % (11.5-14.5) 08/16/22 07:30 Plt Count 248 K/uL (130-400) 08/16/22 07:30 MPV 9.3 fL (9.4-12.4) L 08/16/22 07:30 Immature Gran % (Auto) 0.7 % 08/15/22 05:41 Neut % (Auto) 64.9 % 08/15/22 05:41 Lymph % (Auto) 23.8 % 08/15/22 05:41 [place] % (Auto) 6.5 % 08/15/22 05:41 Eos % (Auto) 3.4 % 08/15/22 05:41 Baso % (Auto) 0.7 % 08/15/22 05:41 Neut # (Auto) 5.53 K/uL (1.4-6.5) 08/15/22 05:41 Lymph # (Auto) 2.03 K/uL (1.2-3.4) 08/15/22 05:41 [place] # (Auto) 0.55 K/uL (0.24-0.82) 08/15/22 05:41 Eos # (Auto) 0.29 K/uL (0-0.50) 08/15/22 05:41 Baso # (Auto) 0.06 K/uL (0-0.2) 08/15/22 05:41 Immature Gran # (Auto) 0.06 K/uL (0.00-0.02) H 08/15/22 05:41 Sodium 137 mmol/L (136-145) 08/16/22 07:30 Potassium 3.7 mmol/L (3.5-5.1) 08/16/22 07:30 Chloride 103 mmol/L (98-107) 08/16/22 07:30 Carbon Dioxide 28 mmol/L (21-32) 08/16/22 07:30 Anion Gap 6 (3-11) 08/16/22 07:30 BUN 16 mg/dl (6-23) 08/16/22 07:30 Creatinine 1.29 mg/dl (0.6-1.4) 08/16/22 07:30 Est Cr Clr Drug Dosing 77.8 ml/min 08/16/22 07:30 Est GFR ( Amer) 68.9 ml/min 08/16/22 07:30 Est GFR (Non-Af Amer) 59.4 ml/min 08/16/22 07:30 BUN/Creatinine Ratio 12.4 (10-20) 08/16/22 07:30 Glucose 134 mg/dl (70-99(Fasting)) H 08/16/22 07:30 POC Glucose 108 mg/dl (70-99) H 08/14/22 20:29 Calcium 9.7 mg/dl (8.5-10.1) 08/16/22 07:30 Magnesium 1.8 mg/dl (1.7-2.4) 08/15/22 05:41 Total Bilirubin 0.8 mg/dl (0.2-1.0) 08/13/22 22:51 AST 22 U/L (13-39) 08/14/22 02:22 ALT 31 U/L (7-52) 08/13/22 22:51 Alkaline Phosphatase 126 U/L (34-104) H 08/13/22 22:51 Total Protein 8.2 gm/dl (6.0-8.3) 08/13/22 22:51 Albumin 4.2 gm/dl (3.4-5.0) 08/13/22: Globulin 4.0 gm/dl (2.5-4.0) 08/13/22 22:51 Albumin/Globulin Ratio 1.1 (0.9-2) 08/13/22 22:51 Urine Color Red 08/13/22:51 Urine Appearance Cloudy (Clear) A 08/13/22: Urine pH 5.0 (4.5-7.5) 08/13/22:51 Ur Specific [place] 1.020 (1.000-1.030) 08/13/22: Urine Protein 3+ (Negative) H 08/13/22: Urine Glucose (UA) Negative (Negative) 08/13/22: Urine Ketones Negative (Negative) 08/13/22: Urine Blood 3+ (Negative) H 08/13/22: Urine Nitrite Positive (Negative) A 08/13/22: Urine Bilirubin 1+ (Negative) H 08/13/22: Urine Urobilinogen Negative (Negative) 08/13/22 22:51 Ur Leukocyte Esterase 1+ (Negative) H 08/13/22:51 Urine WBC (Auto) 10-30 /hpf (0-5) H 08/13/22:51 Urine RBC (Auto) >30 /hpf (0-4) H 08/13/22: U Hyaline Cast (Auto) 0 /lpf (0-5) 08/13/22: U Epithel Cells (Auto) 20-30 /lpf (0-5) H 08/13/22:51 Urine Bacteria (Auto) Negative (Negative) 08/13/22: Urine Crystals Not Reportable 08/13/22: Urine Yeast Budding (None Prsent) A 08/13/22:51 SARS-CoV-2, RNA, NAAT POSITIVE (NEGATIVE) A* 08/14/22 Unknown Hospital Course (1) Hematuria: He was recently admitted for UTI with bacteremia, pyelonephritis with Enterococcus bacteremia He had some hematuria. received IVF, now urine is cleared Hgb stable at 14.[address] on hold, will resume today Urology on board recommended to continue supportive care. Continue monitor while on Eliquis Continue monitor cbc Urology outpatient follow-up as scheduled on 08/[address] Contreras. Stable COVID 19 Asymptomatic Saturated well on RA No indication to start on dexamethasone and Remdesivir Stable Abnormal UA Urine cx no growth Received IV zosyn x 3 days IV Zosyn discontinued Afib Rate control Continue Metoprolol and cardizem Eliquis was placed on hold due to hematuria Eliquis resume yesterday, no sign of hematuria . Acute kidney injury Creatinine 1.5 on admission Continue to hold hydrochlorothiazide. Continue IVF Creatinine improved to 1.29 Check BMP in 1 week Bilateral kidney stones Outpatient follow up appointment with Urology on 08/31/2022. Hyperlipidemia Continue statin. Hypertension Continue amlodipine, metoprolol. Hydrochlorothiazide was on hold for elevating creatinine Continue monitor BP History of sleep apnea Continue CPAP at bedtime. DVT px on SCDs due to hematuria Will resume Eliquis today Code status Full code Total Time Total Time Spent Total Time Spent (In Minutes): 35 minutes Discharge Plan Discharge Items Patient Disposition: Home - Self-Care Reason For Visit: HEMATURIA Discharge Diagnosis: Hematuria: COVID 19 Abnormal UA History Atrial fibrillation Acute kidney injury Creatinine 1.5 on admission Bilateral kidney stones Hyperlipidemia Hypertension History of sleep apnea Activity: Resume your previous activity Non-emergency contact: Primary Care Provider, Hr Intern and Urologist Call non-emergency contact if: you have any medication questions and your symptoms worsen Follow-up/Referrals: Josue Burciaga MD [Primary Care Provider] - (Date & Time 08/28/2022 11:00 AM Provider Josue Burciaga MD Department [facility] ) Diet: Heart Healthy Addtl Attending Provider Instructions: Follow up with your primary care provider Dr. Burciaga on 08/28/2022 @ 11:00 AM at the [facility] Follow up with urology Outpatient on 08/31/2022 (Already scheduled) Follow up with your cardiology next week ( already scheduled) Continue monitor for any abnormal bleeding while on eliquis ( please notify your provider if you develop any bleeding) Avoid any NSAIDs while on Eliquis such as motrin, aleve, naproxen, advil, ibuprofen, aspirin, ..... while on eliquis due to increase risk of bleeding Seek medical attention if your symptoms reoccur Continue to wear mask and practice social distance Home Isolation COVID-19 Instructions The following information about Home Isolation is from the CDC Website: https://www.cdc.gov/coronavirus/2019-ncov/hcp/pbvhfcvz-wngepel-vquxmu.html Stay home except to get medical care People who are mildly ill with COVID-19 are able to isolate at home during their illness. You should restrict activities outside your home, except for getting medical care. Do not go to work, school, or public areas. Avoid using public transportation, ride-sharing, or taxis. Separate yourself from other people and animals in your home People: As much as possible, you should stay in a specific room and away from other people in your home. Also, you should use a separate bathroom, if available. Animals: You should restrict contact with pets and other animals while you are sick with COVID-19, just like you would around other people. Although there have not been reports of pets or other animals becoming sick with COVID-19, it is still recommended that people sick with COVID-19 limit contact with animals until more information is known about the virus. When possible, have another member of your household care for your animals while you are sick. If you are sick with COVID-19, avoid contact with your pet, including petting, snuggling, being kissed or licked, and sharing food. If you must care for your pet or be around animals while you are sick, wash your hands before and after you interact with pets and wear a face mask. Call ahead before visiting your doctor If you have a medical appointment, call the healthcare provider and tell them that you have or may have COVID-19. This will help the healthcare providers office take steps to keep other people from getting infected or exposed. Wear a face mask You should wear a face mask when you are around other people (e.g., sharing a room or vehicle) or pets and before you enter a healthcare providers office. If you are not able to wear a face mask (for example, because it causes trouble breathing), then people who live with you should not stay in the same room with you, or they should wear a face mask if they enter your room. Cover your coughs and sneezes Cover your mouth and nose with a tissue when you cough or sneeze. Throw used tissues in a lined trash can. Immediately wash your hands with soap and water for at least 20 seconds or, if soap and water are not available, clean your hands with an alcohol-based hand hardboard press operator that contains at least 60% alcohol. Clean your hands often Wash your hands often with soap and water for at least 20 seconds, especially after blowing your nose, coughing, or sneezing; going to the bathroom; and before eating or preparing food. If soap and water are not readily available, use an alcohol-based hand hardboard press operator with at least 60% alcohol, covering all surfaces of your hands and rubbing them together until they feel dry. Soap and water are the best option if hands are visibly dirty. Avoid touching your eyes, nose, and mouth with unwashed hands. Avoid sharing personal household items You should not share dishes, drinking glasses, cups, eating utensils, towels, or bedding with other people or pets in your home. After using these items, they should be washed thoroughly with soap and water. Clean all high-touch surfaces everyday High touch surfaces include counters, tabletops, doorknobs, bathroom fixtures, toilets, phones, keyboards, tablets, and bedside tables. Also, clean any surfaces that may have blood, stool, or body fluids on them. Use a household cleaning spray or wipe, according to the label instructions. Labels contain instructions for safe and effective use of the cleaning product including prec autions you should take when applying the product, such as wearing gloves and making sure you have good ventilation during use of the product. Monitor your symptoms Seek prompt medical attention if your illness is worsening (e.g., difficulty breathing).Beforeseeking care, call your healthcare provider and tell them that you have, or are being evaluated for, COVID-19. Put on a face mask before you enter the facility. These steps will help the healthcare providers office to keep other people in the office or waiting room from getting infected or exposed. Ask your healthcare provider to call the local or [facility] health department. Persons who are placed under active monitoring or facilitated self- monitoring should follow instructions provided by their local health department or occupational health professionals, as appropriate. When working with your local health department check their available hours. If you have a medical emergency and need to call 911, notify the dispatch personnel that you have, or are being evaluated for COVID-19. If possible, put on a face mask before emergency medical services arrive. Discontinuing home isolation Patients with confirmed COVID-19 should remain under home isolation precautions until the risk of secondary transmission to others is thought to be low. The decision to discontinue home isolation precautions should be made on a tyss-bk-bnhy basis, in consultation with healthcare providers and state and local health departments. Coronavirus disease 2019 (COVID-19) is a virus that causes a respiratory illness. It is caused by a coronavirus called 2019 novel coronavirus (2019- nCoV). There are many types of coronavirus. Coronaviruses are a very common cause of bronchitis. They may sometimes cause lung infection(pneumonia). Symptoms can range from mild to severe respiratory illness. These viruses are also foundin some animals. COVID-19 was first found in people in [facility], in late 2018. In 2020, several cases of COVID-19 have been confirmed in the [place] Public health officials are working to find the source. How the virus spreads is not yet fully known. It may be spread through droplets of fluid that a person coughs or sneezes into the air. It may be spread if you touch a surface with virus on it, such as a handle or object, and then touch your mouth. What are the symptoms of COVID-19? Some people have no symptoms or mild symptoms. Symptoms may appear 2 to 14 days after contact with the virus. Symptoms can include: Fever Coughing Trouble breathing What are possible complications from COVID-19? In many cases, this virus can cause infection (pneumonia) in both lungs. In some cases, this can cause . How is COVID-19 diagnosed? Your healthcare provider will ask about your symptoms. He or she will also ask about your recent travel and contact with sick people. Testing for the virus is only done through the CDC. If yourhealthcare provider thinks you may have COVID- 19, he or she will work with your local health department and the CDC on testing. Follow all instructions from your healthcare provider. COVID-19 is diagnosed by: Nasal and throat swab. A cotton-tipped swab is wiped inside your nose or throat. This is done to check for viruses in your nasal mucus. Sputum culture. A small sample of mucus coughed from your lungs (sputum) is collected if you have a cough. It is checked for the virus. How is COVID-19 treated? There is currently no medicine to treat the virus. Treatment is done to help your body while it fights the virus. This is known as supportive care. Supportive care may include: Pain medicine. These include acetaminophen and ibuprofen. They are used to help ease pain and reduce fever. Bed rest. This helps your body fight the illness. For severe illness, you may need to stay in the hospital. Care during severe illness may include: IV (intravenous) fluids.These are given through a vein to help keep your body hydrated. Oxygen. Supplemental oxygen or ventilation with a breathing machine (ventilator) may be given. This is done to keep enough oxygen in your body. Are you at risk for COVID-19? If youve been to a place where people have been sick with this virus, you are at risk for infection. You are at risk if you: Recently traveled to an affected area Had contact with a sick person who recently traveled to this area Had contact with a person who was diagnosed with COVID-19 How can COVID-19 be prevented? There is no vaccine yet. The best prevention is to not have contact with the virus. The CDC advises that people should not travel to areas where there are COVID-19 outbreaks right now for any reason that is not urgent. To help prevent spreading the infection, wash your hands often, or use an alcohol-basedhand hardboard press operator. If you are in an area with COVID-19: Wash your hands often. Or use an alcohol-based hand hardboard press operator often. Only touch your eyes, nose, or mouth with clean hands. Dont have contact with people who are sick. Follow local instructions about being in public. For example, you may be told to not use public transport for a period of time. Stay away from markets that have live or animals. Wash your hands after touching any animals. Don't touch animals that may be sick. Dont share eating or drinking tools with sick people. Dont kiss someone who is sick. Clean surfaces often with disinfectant. If you were in an area with COVID-19 in the last 14 days: Call your healthcare provider. He or she can talk with local health staff to see what action may be needed. Follow all instructions from your provider. Take your temperature every morning and evening for at least 14 days. This is to check for fever. Keep a record of the readings. Keep watch for symptoms of the virus. Tell your provider right away if you have symptoms. If you were in an area with COVID-19 and have a fever or other symptoms: Dont panic. Keep in mind that other illnesses can cause similar symptoms. Stay away from work, school, and public places. Limit physical contact with family members. Don't kiss anyone or share eating or drinking utensils. Clean surfaces you touch with disinfectant. This is to help prevent the virus from spreading. Call your healthcare provider. Explain that you have been exposed to COVID-19 and have symptoms. Do this before going to any hospital. Wait for instructions. Keep in mind that healthcare staff may wear protective equipment such as masks, gowns, gloves, and eye protection. You may be put in a separate room. This is to prevent the possible virus from spreading. Tell the healthcare staff about recent travel. This includes local travel on public transport. Staff may need to find other people you have been in contact with. Follow all instructions the healthcare staff give you. If you have been diagnosed with COVID-19 Follow all instructions from your healthcare provider. Dont leave your home, except to get medical care. Call your healthcare providers office before going. They can prepare and give you instructions. This will help prevent the virus from spreading. Dont go to work, school, or public areas. Dont use public transport or taxis. Stay away from other people in your home. Have them wear face masks around you. Dont share household items or food. Wear a face mask if you can. This includes at home or in a medical facility. Cover your face with a tissue when you cough or sneeze. Throw the tissue away. Wash your hands. Wash your hands often. Caregivers should: Follow all instructions from healthcare staff. Wear a face mask and protective clothing as advised. Wash hands often. Keep track of the sick persons symptoms. Clean surfaces, fabrics, and laundry thoroughly. Keep other people away from the sick person. When to call your healthcare provider Call your healthcare provider: If youve recently traveled and have symptoms If you have been diagnosed with COVID-19 and your symptoms are worse To learn more To find out more about COVID-19, visit the CDC website at www.cdc.gov/coronavirus/2019-ncov/index.html. The [employer]. [address] [place] [address], [place] [address]. All rights reserved. This information is not intended as a substitute for professional medical care. Always follow your healthcare professional's instructions. This information has been adapted from [employer] Pending Studies at Discharge: No Stand-Alone Forms: My [facility], Smoking Cessation Medications and DC Order Prescriptions: Continued metoprolol succinate [Toprol XL] 100 mg tablet extended release 24 hr 200 mg PO QAM hydrochlorothiazide 25 mg tablet 25 mg PO QAM metformin 500 mg Tablet 500 mg PO DAILYBD Eliquis 5 mg Tablet 5 mg PO BID Qty: 60 0RF diltiazem HCl [Cardizem CD] 120 mg capsule,extended release 24hr 120 mg PO DAILY Qty: 30 0RF atorvastatin 80 mg tablet 80 mg PO DAILY sildenafil (pulm.hypertension) 20 mg tablet 20 - 100 mg PO DIRECTED PRN (Reason: Erectile Dysfunction) coenzyme Q10 [CoQ-10] 100 mg Capsule 100 mg PO WK Rx Instructions: TAKE THIS MED EVERY SATURDAY. cholecalciferol (vitamin D3) [Vitamin D3] 50 mcg (2,000 unit) Capsule 50 mcg PO WK tamsulosin 0.4 mg capsule 0.4 mg PO HS Qty: 30 0RF Discharge Orders: Discharge Order (Routine); Ordered 08/16/22 Ordered By: Mitch Taylor Admission Data Admit Date/Time: 08/14/22 06:15 Attending Provider: Mitch Taylor Admit Provider: Joyce Cook I. Primary Care Provider: Josue Burciaga Other Providers: Rommel Rosenthal ; Dom Contreras ; Joyce Cook I. Other Interventions: Discharge Summary Assessment (RN) Last Done: 08/16/22 11:56
== END 2022-08-16 13:06 | disposition home or self-care (01) | DRG 695 ==
LOC: ED 20:49 → SUATTDRO 08-14 06:15 → EDINP 08-14 06:15 → 2N 08-14 08:27